=== PATIENT | female | born 1950 | race Hispanic/Latino ===

== ENCOUNTER 2019-02-22 17:29 | Inpatient (IN) | payer MEDICARE, OTHER ==
[2019-02-22] MEDS ORDERED: NARCAN 2 MG/2 ML ONE ×2 (17:37→18:26)
[2019-02-22] MEDS ORDERED: NACL 0.9% 1000 ML 1,000 ML IV ONE (18:28)
[2019-02-22] MEDS ORDERED: NARCAN 2 MG/2 ML IV ONE (18:30)
[2019-02-22 19:06] LABS: Basophils % (Auto) 0.2 % (0.0-1.8); Eosinophils % (Auto) 0.1 % (0.0-4.3); Hematocrit 35.7 % (30.3-42.9); Hemoglobin 11.7 gm/dl (10.1-14.3); Lymphocytes % (Auto) 6.8 % (13.4-35.0); Mean Corpuscular HGB Conc 33 % (30-34); Mean Corpuscular Volume 96 fl (79-97); Monocytes # (Auto) 0.8 K/mm3 (0.0-0.8); Monocytes % (Auto) 5.5 % (0.0-7.3); Platelet Count 303 K/mm3 (140-440); Red Blood Count 3.71 M/mm3 (3.65-5.03); Red Cell Distribution Width 17.5 % (13.2-15.2)
[2019-02-22 19:16] LABS: Alanine Aminotransferase 32 units/L (7-56); Albumin 3.2 g/dL (3.9-5); BUN/Creatinine Ratio 36; Blood Urea Nitrogen 18 mg/dL (7-17); Calcium 10.2 mg/dL (8.4-10.2); Hemolysis Index 30
--- NOTE | 2019-02-22 19:50 | Cat Scan Report ---
PROCEDURE: CT HEAD/BRAIN WO CON TECHNIQUE: Computerized tomography of the head was performed without contrast material. HISTORY: AMS COMPARISONS: None . FINDINGS: Skull and scalp: There is soft tissue scalp swelling over the left forehead extending to the left or bital region . Paranasal sinuses: Normal . Ventricles and subarachnoid spaces: Normal . Cerebrum: No evidence of hemorrhage, acute infarction or mass . Cerebellum and brainstem: No evidence of hemorrhage, acute infarction or mass . Vasculature: Normal . Other: None . ASPECTS: 10 IMPRESSION: No acute intracranial abnormality. Soft tissue scalp swelling of the left forehead and le ft orbital region This document is electronically signed by Emmanuelle Silver MD., February 22 2019 07:48:04 PM ET
--- NOTE | 2019-02-22 19:52 | XRay Report ---
PROCEDURE: XR CHEST 1V AP TECHNIQUE: Chest radiograph single view. HISTORY: ams COMPARISONS: None FINDINGS: There are bilateral areas of pulmonary consolidation most suggestive of pulmonary infiltrates. Probab le pneumonia. There is no evidence of pneumothorax and no definite evidence of pleural effusion. The cardiac silhouette is enlarged. There is evidence of a prosthetic cardiac valve and previous CABG procedure. There is a dual-lead AIC D. The thoracic aorta is unremarkable. The bony structures are osteopenic in appearance. Visualization of detail of the thoracic spine is li mited. IMPRESSION: 1. Bilateral pulmonary infiltrates. Probable pneumonia. 2. Enlarged cardiac silhouette with AICD, prosthetic cardiac valve and evidence of previous CABG proc edure. This document is electronically signed by Grace Gomez MD., February 22 2019 07:50:56 PM ET
[2019-02-22] MEDS ORDERED: LEVAQUIN 750MG/150ML 750 MG/150 ML BAG IV ONE (20:15)
--- NOTE | 2019-02-22 20:16 | Emergency Department Report ---
ED Altered Mental Status HPI - General Chief Complaint: Altered Mental Status Stated Complaint: AMS Time Seen by Provider: 02/22/19 18:05 Source: EMS Mode of arrival: Stretcher Limitations: Altered Mental Status - History of Present Illness Initial Comments: 68-year-old female presents to ED via EMS with altered mental status. Per EMS, patient's friend stopped by home to check on her, and found her on the floor. Patient is followed. EMS was called to help her up. Friends reported patient has had multiple falls recently. Patient was recently discharged from a rehabilitation facility approximately 3-4 weeks ago following a femur fracture. Those friends took the patient to see her primary care physician on yesterday, Dr. Golden, who recommended that the patient be referred to a assisted facility. Friends state patient has no appetite, does not eat very much. They also reported that this has been patient's baseline mental status over the last few weeks. EMS found a prescription for Percocet 10 mg. The prescription was written by her PCP and filled approximately 3 weeks ago for 240 tabs, EMS reports only approximately 30 remain. Instructions are for patient to take 2 pills four times a day for pain. Friends report yesterday, during PCP appointment, pt asked for additional pain medicine. Here in ED, pt will state her name, answers no other questions. Pt given narcan, no significant improvement in mental status MD Complaint: decreased responsiveness Consistency of Symptoms: constant - Related Data Home Medications Medication Instructions Recorded Confirmed Last Taken Unobtainable 02/22/19 02/22/19 Unknown Allergies Allergy/AdvReac Type Severity Reaction Status Date / Time atorvastatin [From Lipitor] Allergy Unknown Verified 02/22/19 18:11 metoclopramide [From Reglan] Allergy Unknown Verified 02/22/19 21:06 promethazine [From Phenergan] Allergy Unknown Verified 02/22/19 21:06 ED Review of Systems ROS: Stated complaint: AMS Other details as noted in HPI Comment: Unobtainable due to pts medical conditions ED Past Medical Hx - Past Medical History Previous Medical History?: Yes Hx Hypertension: Yes Additional medical history: A. FIB - Surgical History Past Surgical History?: Yes Hx Open Heart Surgery: Yes (CABG) Hx Internal Defibrillator: Yes - Social History Smoking Status: Unknown if ever smoked - Medications Home Medications: Home Medications Medication Instructions Recorded Confirmed Last Taken Type Unobtainable 02/22/19 02/22/19 Unknown History ED Physical Exam - General Limitations: Altered Mental Status General appearance: lethargic, cachectic - Head Head exam: Present: normocephalic, other (ecchymosis present to left forehead) - Eye Eye exam: Present: other (lid edema bilaterally) Pupils: Present: other (pinpoint pupils bilaterally) - ENT ENT exam: Present: mucous membranes dry - Neck Neck exam: Present: normal inspection - Respiratory Respiratory exam: Present: normal lung sounds bilaterally. Absent: respiratory distress - Cardiovascular Cardiovascular Exam: Present: regular rate, normal rhythm - GI/Abdominal GI/Abdominal exam: Present: soft. Absent: distended, tenderness - Extremities Exam Extremities exam: Present: other (bruise to bilateral shoulders) - Neurological Exam Neurological exam: Present: altered. Absent: oriented X3 (oriented x 1) - Skin Skin exam: Present: warm, dry ED Course Vital Signs 02/22/19 02/22/19 02/22/19 17:36 17:40 18:00 Temperature 98.3 F Pulse Rate 86 Respiratory 16 Rate Blood Pressure 121/67 Blood Pressure 112/73 [Right] O2 Sat by Pulse 94 100 91 Oximetry 02/22/19 02/22/19 02/22/19 18:10 18:30 19:00 Temperature Pulse Rate 95 H Respiratory 22 Rate Blood Pressure 132/67 130/65 Blood Pressure 130/65 [Right] O2 Sat by Pulse 96 86 92 Oximetry 02/22/19 02/22/19 02/22/19 19:10 19:56 20:10 Temperature Pulse Rate 99 H 90 Respiratory 20 22 Rate Blood Pressure 119/74 Blood Pressure 119/74 129/65 [Right] O2 Sat by Pulse 88 70 L 99 Oximetry 02/22/19 02/22/19 02/22/19 20:59 21:30 22:00 Temperature Pulse Rate 75 84 72 Respiratory 20 21 Rate Blood Pressure 114/62 112/64 Blood Pressure [Right] O2 Sat by Pulse 100 99 Oximetry 02/22/19 02/22/19 02/22/19 22:30 22:51 23:00 Temperature Pulse Rate 71 72 87 Respiratory 19 21 20 Rate Blood Pressure 103/61 94/53 97/63 Blood Pressure [Right] O2 Sat by Pulse 99 100 100 Oximetry 06/06/19 06/06/19 06/06/19 23:11 23:21 23:53 Temperature 97.8 F Pulse Rate 68 63 74 Respiratory 20 18 18 Rate Blood Pressure 97/63 91/53 95/57 Blood Pressure [Right] O2 Sat by Pulse 100 100 99 Oximetry - Lab Data Result diagrams: 02/22/19 18:46 02/22/19 18:46 Lab Results 02/22/19 02/22/19 02/22/19 Range/Units 17:44 18:46 18:46 WBC 14.5 H (4.5-11.0) K/mm3 RBC 3.71 (3.65-5.03) M/mm3 Hgb 11.7 (10.1-14.3) gm/dl Hct 35.7 (30.3-42.9) % MCV 96 (79-97) fl MCH 31 (28-32) pg MCHC 33 (30-34) % RDW 17.5 H (13.2-15.2) % Plt Count 303 (140-440) K/mm3 Lymph % (Auto) 6.8 L (13.4-35.0) % [place] % (Auto) 5.5 (0.0-7.3) % Eos % (Auto) 0.1 (0.0-4.3) % Baso % (Auto) 0.2 (0.0-1.8) % Lymph # 1.0 L (1.2-5.4) K/mm3 [place] # 0.8 (0.0-0.8) K/mm3 Eos # 0.0 (0.0-0.4) K/mm3 Baso # 0.0 (0.0-0.1) K/mm3 Seg Neutrophils % 87.4 H (40.0-70.0) % Seg Neutrophils # 12.7 H (1.8-7.7) K/mm3 POC ABG pH (7.35-7.45) POC ABG pCO2 (35-45) POC ABG HCO3 (22-26 mml/L) POC ABG Total CO2 (23-27mmol/L) POC ABG O2 Sat POC ABG Base Excess ((-2) - (+3)mmol/L) FiO2 % Sodium 140 (137-145) mmol/L Potassium 4.3 (3.6-5.0) mmol/L Chloride 98.3 (98-107) mmol/L Carbon Dioxide 32 H (22-30) mmol/L Anion Gap 14 mmol/L BUN 18 H (7-17) mg/dL Creatinine 0.5 L (0.7-1.2) mg/dL Estimated GFR > 60 ml/min BUN/Creatinine Ratio 36 % Glucose 103 H (65-100) mg/dL POC Glucose 109 H (70-105) Calcium 10.2 (8.4-10.2) mg/dL Total Bilirubin 0.70 (0.1-1.2) mg/dL AST 41 H (5-40) units/L ALT 32 (7-56) units/L Alkaline Phosphatase 161 H (35-129) units/L Total Protein 6.7 (6.3-8.2) g/dL Albumin 3.2 L (3.9-5) g/dL Albumin/Globulin Ratio 0.9 % Urine Color (Yellow) Urine Turbidity (Clear) Urine pH (5.0-7.0) Ur Specific G[place] (1.003-1.030) Urine Protein (Negative) mg/dL Urine Glucose (UA) (Negative) mg/dL Urine Ketones (Negative) mg/dL Urine Blood (Negative) Urine Nitrite (Negative) Urine Bilirubin (Negative) Urine Urobilinogen (<2.0) mg/dL Ur Leukocyte Esterase (Negative) Urine WBC (Auto) (0.0-6.0) /HPF Urine RBC (Auto) (0.0-6.0) /HPF U Epithel Cells (Auto) (0-13.0) /HPF Hyaline Casts /LPF Urine Mucus /HPF Urine Opiates Screen Urine Methadone Screen Ur Barbiturates Screen Ur Phencyclidine Scrn Ur Amphetamines Screen U Benzodiazepines Scrn Urine Cocaine Screen U Marijuana (THC) Screen Drugs of Abuse Note 02/22/19 02/22/19 02/22/19 Range/Units 19:05 20:30 20:30 WBC (4.5-11.0) K/mm3 RBC (3.65-5.03) M/mm3 Hgb (10.1-14.3) gm/dl Hct (30.3-42.9) % MCV (79-97) fl MCH (28-32) pg MCHC (30-34) % RDW (13.2-15.2) % Plt Count (140-440) K/mm3 Lymph % (Auto) (13.4-35.0) % [place] % (Auto) (0.0-7.3) % Eos % (Auto) (0.0-4.3) % Baso % (Auto) (0.0-1.8) % Lymph # (1.2-5.4) K/mm3 [place] # (0.0-0.8) K/mm3 Eos # (0.0-0.4) K/mm3 Baso # (0.0-0.1) K/mm3 Seg Neutrophils % (40.0-70.0) % Seg Neutrophils # (1.8-7.7) K/mm3 POC ABG pH 7.490 H (7.35-7.45) POC ABG pCO2 43.4 (35-45) POC ABG HCO3 33.1 (22-26 mml/L) POC ABG Total CO2 34 (23-27mmol/L) POC ABG O2 Sat 86 POC ABG Base Excess 10 ((-2) - (+3)mmol/L) FiO2 21 % Sodium (137-145) mmol/L Potassium (3.6-5.0) mmol/L Chloride (98-107) mmol/L Carbon Dioxide (22-30) mmol/L Anion Gap mmol/L BUN (7-17) mg/dL Creatinine (0.7-1.2) mg/dL Estimated GFR ml/min BUN/Creatinine Ratio % Glucose (65-100) mg/dL POC Glucose (70-105) Calcium (8.4-10.2) mg/dL Total Bilirubin (0.1-1.2) mg/dL AST (5-40) units/L ALT (7-56) units/L Alkaline Phosphatase (35-129) units/L Total Protein (6.3-8.2) g/dL Albumin (3.9-5) g/dL Albumin/Globulin Ratio % Urine Color Yellow (Yellow) Urine Turbidity Clear (Clear) Urine pH 5.0 (5.0-7.0) Ur Specific G[place] 1.024 (1.003-1.030) Urine Protein <15 mg/dl (Negative) mg/dL Urine Glucose (UA) Neg (Negative) mg/dL Urine Ketones Neg (Negative) mg/dL Urine Blood Neg (Negative) Urine Nitrite Neg (Negative) Urine Bilirubin Neg (Negative) Urine Urobilinogen 2.0 (<2.0) mg/dL Ur Leukocyte Esterase Neg (Negative) Urine WBC (Auto) 3.0 (0.0-6.0) /HPF Urine RBC (Auto) 2.0 (0.0-6.0) /HPF U Epithel Cells (Auto) 1.0 (0-13.0) /HPF Hyaline Casts 3 /LPF Urine Mucus 1+ /HPF Urine Opiates Screen Presumptive negative Urine Methadone Screen Presumptive negative Ur Barbiturates Screen Presumptive negative Ur Phencyclidine Scrn Presumptive negative Ur Amphetamines Screen Presumptive negative U Benzodiazepines Scrn Presumptive negative Urine Cocaine Screen Presumptive negative U Marijuana (THC) Screen Presumptive negative Drugs of Abuse Note Disclamer - Radiology Data Radiology results: report reviewed, image reviewed - Medical Decision Making 68 yo F w/ failure to thrive, opoid dependence, and pneumonia. Pt is altered and minimally responsive, however, friends state that this has been pt's baseline for several weeks now. Reports she has had multiple falls also. CT Head negative. O2 sats 91% RA at one point. Pt given narcan x 3 doses, however, no significant change in mental status. CXR shows pneumonia. According to friends, pt visited PCP yesterday and had plans for pt to enter assisted b/c she has not been eating and is unable to care for herself. Pt will be admitted by hospitalist, Dr Barcenas, for further management. - Differential Diagnosis accidental overdose, intracranial injury, dehydration Critical Care Time: Yes Critical care time in (mins) excluding proc time.: 35 Critical care attestation.: If time is entered above; I have spent that time in minutes in the direct care of this critically ill patient, excluding procedure time. Critical Care Time: 35 minutes ED Disposition Clinical Impression: Failure to thrive, Pneumonia, Altered mental status, Narcotic dependence, Hypoxia Disposition: [id number] OP ADMIT IP TO THIS HOSP Is pt being admited?: Yes Condition: Stable Time of Disposition: 20:16
[2019-02-22 21:08] LABS: Bilirubin,Urine NEG (Negative); Blood,Urine NEG (Negative); Color,Urine Yellow (Yellow); Hyaline Casts,Urine 3 /LPF; Mucus,Urine 1+ /HPF; Protein,Urine <15 mg/dL mg/dL (Negative)
[2019-02-22 21:15] LABS: Amphetamine Screen,Urine PRESUMPTIVE NEGATIVE; Benzodiazepines Screen,Urine PRESUMPTIVE NEGATIVE; Cannabinoid Screen,Urine PRESUMPTIVE NEGATIVE; Cocaine Screen,Urine PRESUMPTIVE NEGATIVE; Methadone Screen,Urine PRESUMPTIVE NEGATIVE; Opiate Screen,Urine PRESUMPTIVE NEGATIVE
--- NOTE | 2019-02-22 22:30 | History and Physical Report ---
History of Present Illness Date of examination: 02/22/19 History of present illness: 68 -year-old woman with a history of hypertension, coronary artery disease, A. fib was brought to the emergency room by friends for senior living placement as recommended by her primary care physician. The patient is unable to give a hi story. Per the emergency room physician, she is been having multiple falls, recent hip surgery and was discharged to rehabilitation and subsequently discharged to home. She had a prescription for Percocet filled on February 01 with 240 Percocet, instructed to take 8 tablets maximum per day. The patient only had about 30 something pills left in the bottle, Narcan was given in the field, she was sedated, no improvement in mental status. Her review of system is unobtainable PAST MEDICAL HISTORY:hypertension, coronary artery disease, A. fib PAST SURGICAL HISTORY: CABG SOCIAL HISTORY: Unknown alcohol, drugs, tobacco FAMILY HISTORY: Unknown Medications and Allergies Allergies Allergy/AdvReac Type Severity Reaction Status Date / Time atorvastatin [From Lipitor] Allergy Unknown Verified 02/22/19 18:11 metoclopramide [From Reglan] Allergy Unknown Verified 02/22/19 21:06 promethazine [From Phenergan] Allergy Unknown Verified 02/22/19 21:06 Home Medications Medication Instructions Recorded Confirmed Last Taken Type Duloxetine HCl 60 mg PO DAILY 02/23/19 02/23/19 Unknown History Furosemide [Lasix TAB] 40 mg PO DAILY 02/23/19 02/23/19 Unknown History Metoprolol 25 mg PO QHS 02/23/19 02/23/19 Unknown History Metoprolol 50 mg PO DAILY 02/23/19 02/23/19 Unknown History Percocet 10/325 mg 2 mg PO QID 02/23/19 02/23/19 Unknown History Warfarin 1 mg PO DAILY 02/23/19 02/23/19 Unknown History Exam - Physical Exam Narrative exam: General Apperance: The patient lying in bed, breathing comfortable HEENT: Normocephalic, atraumatic. Pupils equally round and reactive to light, EOMI, no sclericterus or JVD or thyromegaly or nodule. , no carotid bruit, mucous membranes moist, no exudate or erythema Heart: S1-S2, regular is rhythm Lungs: Clear to auscultation anteriorly bilaterally, breathing comfortable Abdomen: Positive bowel sounds, soft, nontender, nondistended, no organomegaly Extremities: No edema cyanosis clubbing Skin: no rash, nodule, warm and dry Neuro: difficult to assess - Constitutional Vitals: Temp Pulse Resp BP Pulse Ox 98.3 F 75 22 129/65 99 02/22/19 17:40 02/22/19 20:59 02/22/19 20:10 02/22/19 20:10 02/22/19 20:10 Results - Labs CBC & Chem 7: 02/25/19 04:54 02/25/19 04:54 Labs: Abnormal lab results 02/22/19 02/22/19 02/22/19 Range/Units 17:44 18:46 18:46 WBC 14.5 H (4.5-11.0) K/mm3 RDW 17.5 H (13.2-15.2) % Lymph % (Auto) 6.8 L (13.4-35.0) % Lymph # 1.0 L (1.2-5.4) K/mm3 Seg Neutrophils % 87.4 H (40.0-70.0) % Seg Neutrophils # 12.7 H (1.8-7.7) K/mm3 POC ABG pH (7.35-7.45) Carbon Dioxide 32 H (22-30) mmol/L BUN 18 H (7-17) mg/dL Creatinine 0.5 L (0.7-1.2) mg/dL Glucose 103 H (65-100) mg/dL POC Glucose 109 H (70-105) AST 41 H (5-40) units/L Alkaline Phosphatase 161 H (35-129) units/L Albumin 3.2 L (3.9-5) g/dL 02/22/19 Range/Units 19:05 WBC (4.5-11.0) K/mm3 RDW (13.2-15.2) % Lymph % (Auto) (13.4-35.0) % Lymph # (1.2-5.4) K/mm3 Seg Neutrophils % (40.0-70.0) % Seg Neutrophils # (1.8-7.7) K/mm3 POC ABG pH 7.490 H (7.35-7.45) Carbon Dioxide (22-30) mmol/L BUN (7-17) mg/dL Creatinine (0.7-1.2) mg/dL Glucose (65-100) mg/dL POC Glucose (70-105) AST (5-40) units/L Alkaline Phosphatase (35-129) units/L Albumin (3.9-5) g/dL - Imaging and Cardiology Chest x-ray: report reviewed CT Scan - head: report reviewed Assessment and Plan Assessment Pneumonia, possible aspiration versus HCAP ? Altered Mental status Failure to thrive Hypertension Coronary artery disease A. fib Plan Admit to medicine Start IV Zosyn, IV fluid follow cultures Consult case management, check cardiac enzymes DVT prophylaxis
[2019-02-23] MEDS ORDERED: SODIUM CHLORIDE FLUSH SYRINGE 10 ML IV PRN (02:02)
[2019-02-23] MEDS ORDERED: ZOFRAN IV PRN (02:02)
[2019-02-23] MEDS: ZOSYN/NS 3.375GM/50ML 3.375 GM/50 ML BAG IV SCH ×4 (02:54→18:20)
[2019-02-23] MEDS: NACL 0.9% 1000 ML 1,000 ML IV SCH ×2 (02:56→16:17)
[2019-02-23 05:50] LABS: Hematocrit 30.5 % (30.3-42.9); Hemoglobin 9.7 gm/dl (10.1-14.3); Mean Corpuscular HGB Conc 32 % (30-34); Mean Corpuscular Volume 97 fl (79-97); Platelet Count 222 K/mm3 (140-440); Red Blood Count 3.13 M/mm3 (3.65-5.03); Red Cell Distribution Width 17.4 % (13.2-15.2)
[2019-02-23 06:08] LABS: Creatine Kinase MB 4.6 ng/mL (0.0-4.0)
[2019-02-23 06:09] LABS: BUN/Creatinine Ratio 33; Blood Urea Nitrogen 13 mg/dL (7-17); Calcium 8.5 mg/dL (8.4-10.2); Hemolysis Index 2
[2019-02-23 06:20] LABS: Chol/HDL Ratio 1.87 %
[2019-02-23 06:40] LABS: Anisocytosis 1+; Band Neutrophils # (Manual) 0.1 K/mm3; Basophils % (Manual) 0 % (0.0-1.8); Eosinophils % (Manual) 0 % (0.0-4.3); Platelet Estimate Consistent w Auto; Total Cells Counted 100
--- NOTE | 2019-02-23 08:48 | Progress Note ---
Assessment and Plan Assessment and plan: --Possible Pneumonia, possible aspiration versus HCAP Continue empiric antibiotics, follow cultures, supportive care Aspiration precautions --Metabolic encephalopathy /Altered Mental status; present on admission Multifactorial, supportive care, patient is more alert and awake responding appropriately to be --History of narcotic abuse; counseling advice to quit Patient advised detox program, psych consult if needed --Failure to thrive in an adult; nutrition supplements, nutrition consult Supportive care --Severe malnutrition; nutrition consult --Hypertension; moderate control, continue current antihypertensives and when necessary medications --History of Coronary artery disease;s/p CABG Continue current cardiac medications --Positive troponins/non-ST elevation OK Consults cardiology --History of heart valve replacement; supportive care --History of paroxysmal A. fib; patient is now in sinus rhythm Continue beta blockers, chronic anticoagulation with Coumadin --History of ICD; interrogation if needed --DVT prophylaxis; Lovenox --Discharge planning; possible rehabilitation versus SNF placement When medically stable Plan of care is reviewed with the patient and her nurse Follow cardiology evaluation and recommendations tomorrow History Interval history: Seen and examined medical records reviewed Admitted with altered level of consciousness And possible narcotic dependence Patient is chronically ill-looking, cachectic, emaciated Vital signs noted In mild distress Patient complains of generalized weakness and vague chest pain Asking for pain medications Hospitalist Physical - Constitutional Vitals: Temp Pulse Resp BP Pulse Ox 97.9 F 65 20 100/47 97 02/23/19 07:17 02/23/19 07:17 02/23/19 07:17 02/23/19 07:17 02/23/19 07:17 General appearance: Present: mild distress, cachectic, disheveled, other ( emaciated) - EENT Eyes: Present: PERRL, EOM intact - Neck Neck: Present: supple, normal ROM - Respiratory Respiratory effort: normal Respiratory: bilateral: diminished, rales, negative: rhonchi, wheezing - Cardiovascular Rhythm: regular Heart Sounds: Present: S1 & S2 - Extremities Extremities: no ischemia, No edema - Abdominal General gastrointestinal: soft, non-tender, non-distended, normal bowel sounds - Integumentary Integumentary: Present: clear, warm - Psychiatric Psychiatric: appropriate mood/affect, cooperative - Neurologic Neurologic: moves all extremities Results - Labs CBC & Chem 7: 02/23/19 05:18 02/23/19 05:18 Labs: Laboratory Last Values WBC 13.8 K/mm3 (4.5-11.0) H 02/23/19 05:18 RBC 3.13 M/mm3 (3.65-5.03) L 02/23/19 05:18 Hgb 9.7 gm/dl (10.1-14.3) L 02/23/19 05:18 Hct 30.5 % (30.3-42.9) 02/23/19 05:18 MCV 97 fl (79-97) 02/23/19 05:18 MCH 31 pg (28-32) 02/23/19 05:18 MCHC 32 % (30-34) 02/23/19 05:18 RDW 17.4 % (13.2-15.2) H 02/23/19 05:18 Plt Count 222 K/mm3 (140-440) 02/23/19 05:18 Lymph % (Auto) 6.8 % (13.4-35.0) L 02/22/19 18:46 [place] % (Auto) 5.5 % (0.0-7.3) 02/22/19 18:46 Eos % (Auto) 0.1 % (0.0-4.3) 02/22/19 18:46 Baso % (Auto) 0.2 % (0.0-1.8) 02/22/19 18:46 Lymph # 1.0 K/mm3 (1.2-5.4) L 02/22/19 18:46 [place] # 0.8 K/mm3 (0.0-0.8) 02/22/19 18:46 Eos # 0.0 K/mm3 (0.0-0.4) 02/22/19 18:46 Baso # 0.0 K/mm3 (0.0-0.1) 02/22/19 18:46 Add Manual Diff Complete 02/23/19 05:18 Total Counted 100 02/23/19 05:18 Seg Neutrophils % 87.4 % (40.0-70.0) H 02/22/19 18:46 Seg Neuts % (Manual) 90.0 % (40.0-70.0) H 02/23/19 05:18 1.0 % 02/23/19 05:18 2.0 % (13.4-35.0) L 02/23/19 05:18 Reactive Lymphs % (Man) 0 % 02/23/19 05:18 7.0 % (0.0-7.3) 02/23/19 05:18 0 % (0.0-4.3) 02/23/19 05:18 0 % (0.0-1.8) 02/23/19 05:18 0 % 02/23/19 05:18 0 % 02/23/19 05:18 0 % 02/23/19 05:18 0 % 02/23/19 05:18 Nucleated RBC % Not Reportable 02/23/19 05:18 Seg Neutrophils # 12.7 K/mm3 (1.8-7.7) H 02/22/19 18:46 Seg Neutrophils # Man 12.4 K/mm3 (1.8-7.7) H 02/23/19 05:18 Band Neutrophils # 0.1 K/mm3 02/23/19 05:18 0.3 K/mm3 (1.2-5.4) L 02/23/19 05:18 Abs React Lymphs (Man) 0.0 K/mm3 02/23/19 05:18 1.0 K/mm3 (0.0-0.8) H 02/23/19 05:18 0.0 K/mm3 (0.0-0.4) 02/23/19 05:18 0.0 K/mm3 (0.0-0.1) 02/23/19 05:18 0.0 K/mm3 02/23/19 05:18 0.0 K/mm3 02/23/19 05:18 0.0 K/mm3 02/23/19 05:18 Blast Cells # 0.0 K/mm3 02/23/19 05:18 WBC Morphology Not Reportable 02/23/19 05:18 Hypersegmented Neuts Not Reportable 02/23/19 05:18 Hyposegmented Neuts Not Reportable 02/23/19 05:18 Hypogranular Neuts Not Reportable 02/23/19 05:18 Not Reportable 02/23/19 05:18 Not Reportable 02/23/19 05:18 Not Reportable 02/23/19 05:18 Not Reportable 02/23/19 05:18 Not Reportable 02/23/19 05:18 Not Reportable 02/23/19 05:18 Consistent w auto 02/23/19 05:18 Not Reportable 02/23/19 05:18 Plt Clumps, EDTA Not Reportable 02/23/19 05:18 Not Reportable 02/23/19 05:18 Not Reportable 02/23/19 05:18 Not Reportable 02/23/19 05:18 Plt Morphology Comment Not Reportable 02/23/19 05:18 RBC Morphology Not Reportable 02/23/19 05:18 Dimorphic RBCs Not Reportable 02/23/19 05:18 Not Reportable 02/23/19 05:18 Not Reportable 02/23/19 05:18 Not Reportable 02/23/19 05:18 1+ 02/23/19 05:18 Not Reportable 02/23/19 05:18 Not Reportable 02/23/19 05:18 Not Reportable 02/23/19 05:18 Not Reportable 02/23/19 05:18 Not Reportable 02/23/19 05:18 Not Reportable 02/23/19 05:18 Not Reportable 02/23/19 05:18 Not Reportable 02/23/19 05:18 Not Reportable 02/23/19 05:18 Not Reportable 02/23/19 05:18 Not Reportable 02/23/19 05:18 Not Reportable 02/23/19 05:18 Not Reportable 02/23/19 05:18 Not Reportable 02/23/19 05:18 Not Reportable 02/23/19 05:18 Acanthocytes (Spur) Not Reportable 02/23/19 05:18 Rouleaux Not Reportable 02/23/19 05:18 Not Reportable 02/23/19 05:18 Not Reportable 02/23/19 05:18 Not Reportable 02/23/19 05:18 Not Reportable 02/23/19 05:18 Hem Pathologist Commnt No 02/23/19 05:18 POC ABG pH 7.490 (7.35-7.45) H 02/22/19 19:05 POC ABG pCO2 43.4 (35-45) 02/22/19 19:05 POC ABG HCO3 33.1 (22-26 mml/L) 02/22/19 19:05 POC ABG Total CO2 34 (23-27mmol/L) 02/22/19 19:05 POC ABG O2 Sat 86 02/22/19 19:05 POC ABG Base Excess 10 ((-2) - (+3)mmol/L) 02/22/19 19:05 21 % 02/22/19 19:05 Sodium 143 mmol/L (137-145) 02/23/19 05:18 Potassium 4.1 mmol/L (3.6-5.0) 02/23/19 05:18 Chloride 102.0 mmol/L (98-107) 02/23/19 05:18 Carbon Dioxide 33 mmol/L (22-30) H 02/23/19 05:18 12 mmol/L 02/23/19 05:18 BUN 13 mg/dL (7-17) 02/23/19 05:18 0.4 mg/dL (0.7-1.2) L 02/23/19 05:18 Estimated GFR > 60 ml/min 02/23/19 05:18 33 % 02/23/19 05:18 Glucose 85 mg/dL (65-100) 02/23/19 05:18 POC Glucose 109 (70-105) H 02/22/19 17:44 Calcium 8.5 mg/dL (8.4-10.2) D 02/23/19 05:18 0.70 mg/dL (0.1-1.2) 02/22/19 18:46 AST 41 units/L (5-40) H 02/22/19 18:46 ALT 32 units/L (7-56) 02/22/19 18:46 161 units/L (35-129) H 02/22/19 18:46 53 units/L (30-135) 02/23/19 05:18 CK-MB (CK-2) 4.6 ng/mL (0.0-4.0) H 02/23/19 05:18 CK-MB (CK-2) Rel Index 8.6 (0-4) H 02/23/19 05:18 0.036 ng/mL (0.00-0.029) H 02/23/19 05:18 6.7 g/dL (6.3-8.2) 02/22/19 18:46 3.2 g/dL (3.9-5) L 02/22/19 18:46 0.9 % 02/22/19 18:46 Triglycerides 77 mg/dL (2-149) 02/23/19 05:18 Cholesterol 101 mg/dL (50-199) 02/23/19 05:18 31 mg/dL (50-130) L 02/23/19 05:18 54 mg/dL (40-59) 02/23/19 05:18 1.87 % 02/23/19 05:18 Yellow (Yellow) 02/22/19 20:30 Clear (Clear) 02/22/19 20:30 5.0 (5.0-7.0) 02/22/19 20:30 Ur Specific [place] 1.024 (1.003-1.030) 02/22/19 20:30 <15 mg/dl mg/dL (Negative) 02/22/19 20:30 Neg mg/dL (Negative) 02/22/19 20:30 Neg mg/dL (Negative) 02/22/19 20:30 Neg (Negative) 02/22/19 20:30 Neg (Negative) 02/22/19 20:30 Neg (Negative) 02/22/19 20:30 2.0 mg/dL (<2.0) 02/22/19 20:30 Ur Leukocyte Esterase Neg (Negative) 02/22/19 20:30 3.0 /HPF (0.0-6.0) 02/22/19 20:30 2.0 /HPF (0.0-6.0) 02/22/19 20:30 U Epithel Cells (Auto) 1.0 /HPF (0-13.0) 02/22/19 20:30 Hyaline Casts 3 /LPF 02/22/19 20:30 1+ /HPF 02/22/19 20:30 Presumptive negative 02/22/19 20:30 Presumptive negative 02/22/19 20:30 Ur Barbiturates Screen Presumptive negative 02/22/19 20:30 Ur Phencyclidine Scrn Presumptive negative 02/22/19 20:30 Ur Amphetamines Screen Presumptive negative 02/22/19 20:30 U Benzodiazepines Scrn Presumptive negative 02/22/19 20:30 Presumptive negative 02/22/19 20:30 U Marijuana (THC) Screen Presumptive negative 02/22/19 20:30 Disclamer 02/22/19 20:30 Active Medications - Current Medications Current Medications: Generic Name Dose Route Start Last Admin Trade Name Freq PRN Reason Stop Dose Admin Acetaminophen 650 mg 02/23/19 02:02 Tylenol PO Q4H PRN Pain MILD(1-3)/Fever >100.5/DUPREE Enoxaparin Sodium 40 mg 02/23/19 10:00 Lovenox SUB-Q QDAY@1000 JESSICA Sodium Chloride 1,000 mls @ 75 mls/hr 02/23/19 02:00 02/23/19 02:56 Nacl 0.9% 1000 Ml IV 75 mls/hr DIRECT JESSICA Administration Piperacillin Sod/Tazobactam Sod 3.375 gm in 50 mls @ 100 mls/hr 02/23/19 03:00 02/23/19 06:20 Zosyn/Ns 3.375gm/50ml IV 100 mls/hr Q8H JESSICA Administration Protocol Ondansetron HCl 4 mg 02/23/19 02:02 Zofran IV Q8H PRN Nausea And Vomiting Sodium Chloride 10 ml 02/23/19 10:00 Sodium Chloride Flush Syringe 10 Ml IV BID JESSICA Sodium Chloride 10 ml 02/23/19 02:02 Sodium Chloride Flush Syringe 10 Ml IV PRN PRN LINE FLUSH
[2019-02-23] MEDS: SODIUM CHLORIDE FLUSH SYRINGE 10 ML IV SCH ×2 (09:05→22:56)
[2019-02-23] MEDS: LOVENOX SUB-Q SCH (09:05)
[2019-02-23] MEDS ORDERED: LOVENOX SUB-Q SCH (10:00)
[2019-02-23 11:21] LABS: Creatine Kinase MB 4.4 ng/mL (0.0-4.0)
[2019-02-23] MEDS: TYLENOL PO PRN ×2 (16:18→20:06)
[2019-02-23 20:48] LABS: INR 1.41 (0.87-1.13)
[2019-02-23] MEDS ORDERED: COUMADIN PO ONE (21:15)
[2019-02-24] MEDS: ZOSYN/NS 3.375GM/50ML 3.375 GM/50 ML BAG IV SCH ×3 (02:30→18:34)
[2019-02-24 05:55] LABS: INR 1.36 (0.87-1.13)
[2019-02-24] MEDS: NACL 0.9% 1000 ML 1,000 ML IV SCH ×2 (06:46→21:07)
--- NOTE | 2019-02-24 08:51 | Progress Note ---
Assessment and Plan Assessment and plan: --Metabolic encephalopathy /Altered Mental status; present on admission Multifactorial, supportive care, patient is more alert and awake responding appropriately to be --History of narcotic abuse; counseling advice to quit Patient advised detox program, psych consult if needed --Failure to thrive in an adult; nutrition supplements, nutrition consult Supportive care --Severe malnutrition; nutrition consult --Possible Pneumonia, possible aspiration versus HCAP Continue empiric antibiotics, follow cultures, supportive care Aspiration precautions --Hypertension; moderate control, continue current antihypertensives and when necessary medications --History of Coronary artery disease;s/p CABG Continue current cardiac medications --Positive troponins/non-ST elevation PR Consults cardiology --History of heart valve replacement; supportive care --History of paroxysmal A. fib; patient is now in sinus rhythm Continue beta blockers, chronic anticoagulation with Coumadin --History of ICD; interrogation if needed --DVT prophylaxis; Lovenox --Discharge planning; possible rehabilitation versus SNF placement When medically stable Plan of care is reviewed with the patient and her nurse Follow cardiology evaluation and recommendations tomorrow History Interval history: Patient Seen and examined medical records reviewed No new events reported by the nursing staff Patient is lethargic easily awakens Vital signs noted Hospitalist Physical - Constitutional Vitals: Temp Pulse Resp BP Pulse Ox 99.1 F 80 20 129/73 97 02/24/19 07:33 02/24/19 07:33 02/24/19 07:33 02/24/19 07:33 02/24/19 08:37 General appearance: Present: mild distress, cachectic, disheveled, other ( emaciated) - EENT Eyes: Present: PERRL, EOM intact - Neck Neck: Present: supple, normal ROM - Respiratory Respiratory effort: normal Respiratory: bilateral: diminished, rales, negative: rhonchi, wheezing - Cardiovascular Rhythm: regular Heart Sounds: Present: S1 & S2 - Extremities Extremities: no ischemia, No edema - Abdominal General gastrointestinal: soft, non-tender, non-distended, normal bowel sounds - Integumentary Integumentary: Present: clear, warm - Psychiatric Psychiatric: depressed (no suicidal ideation or thoughts), other (minimally communicative) - Neurologic Neurologic: moves all extremities Results - Labs CBC & Chem 7: 02/23/19 05:18 02/23/19 05:18 Labs: Laboratory Last Values WBC 13.8 K/mm3 (4.5-11.0) H 02/23/19 05:18 RBC 3.13 M/mm3 (3.65-5.03) L 02/23/19 05:18 Hgb 9.7 gm/dl (10.1-14.3) L 02/23/19 05:18 Hct 30.5 % (30.3-42.9) 02/23/19 05:18 MCV 97 fl (79-97) 02/23/19 05:18 MCH 31 pg (28-32) 02/23/19 05:18 MCHC 32 % (30-34) 02/23/19 05:18 RDW 17.4 % (13.2-15.2) H 02/23/19 05:18 Plt Count 222 K/mm3 (140-440) 02/23/19 05:18 Lymph % (Auto) 6.8 % (13.4-35.0) L 02/22/19 18:46 [place] % (Auto) 5.5 % (0.0-7.3) 02/22/19 18:46 Eos % (Auto) 0.1 % (0.0-4.3) 02/22/19 18:46 Baso % (Auto) 0.2 % (0.0-1.8) 02/22/19 18:46 Lymph # 1.0 K/mm3 (1.2-5.4) L 02/22/19 18:46 [place] # 0.8 K/mm3 (0.0-0.8) 02/22/19 18:46 Eos # 0.0 K/mm3 (0.0-0.4) 02/22/19 18:46 Baso # 0.0 K/mm3 (0.0-0.1) 02/22/19 18:46 Add Manual Diff Complete 02/23/19 05:18 Total Counted 100 02/23/19 05:18 Seg Neutrophils % 87.4 % (40.0-70.0) H 02/22/19 18:46 Seg Neuts % (Manual) 90.0 % (40.0-70.0) H 02/23/19 05:18 1.0 % 02/23/19 05:18 2.0 % (13.4-35.0) L 02/23/19 05:18 Reactive Lymphs % (Man) 0 % 02/23/19 05:18 7.0 % (0.0-7.3) 02/23/19 05:18 0 % (0.0-4.3) 02/23/19 05:18 0 % (0.0-1.8) 02/23/19 05:18 0 % 02/23/19 05:18 0 % 02/23/19 05:18 0 % 02/23/19 05:18 0 % 02/23/19 05:18 Nucleated RBC % Not Reportable 02/23/19 05:18 Seg Neutrophils # 12.7 K/mm3 (1.8-7.7) H 02/22/19 18:46 Seg Neutrophils # Man 12.4 K/mm3 (1.8-7.7) H 02/23/19 05:18 Band Neutrophils # 0.1 K/mm3 02/23/19 05:18 0.3 K/mm3 (1.2-5.4) L 02/23/19 05:18 Abs React Lymphs (Man) 0.0 K/mm3 02/23/19 05:18 1.0 K/mm3 (0.0-0.8) H 02/23/19 05:18 0.0 K/mm3 (0.0-0.4) 02/23/19 05:18 0.0 K/mm3 (0.0-0.1) 02/23/19 05:18 0.0 K/mm3 02/23/19 05:18 0.0 K/mm3 02/23/19 05:18 0.0 K/mm3 02/23/19 05:18 Blast Cells # 0.0 K/mm3 02/23/19 05:18 WBC Morphology Not Reportable 02/23/19 05:18 Hypersegmented Neuts Not Reportable 02/23/19 05:18 Hyposegmented Neuts Not Reportable 02/23/19 05:18 Hypogranular Neuts Not Reportable 02/23/19 05:18 Not Reportable 02/23/19 05:18 Not Reportable 02/23/19 05:18 Not Reportable 02/23/19 05:18 Not Reportable 02/23/19 05:18 Not Reportable 02/23/19 05:18 Not Reportable 02/23/19 05:18 Consistent w auto 02/23/19 05:18 Not Reportable 02/23/19 05:18 Plt Clumps, EDTA Not Reportable 02/23/19 05:18 Not Reportable 02/23/19 05:18 Not Reportable 02/23/19 05:18 Not Reportable 02/23/19 05:18 Plt Morphology Comment Not Reportable 02/23/19 05:18 RBC Morphology Not Reportable 02/23/19 05:18 Dimorphic RBCs Not Reportable 02/23/19 05:18 Not Reportable 02/23/19 05:18 Not Reportable 02/23/19 05:18 Not Reportable 02/23/19 05:18 1+ 02/23/19 05:18 Not Reportable 02/23/19 05:18 Not Reportable 02/23/19 05:18 Not Reportable 02/23/19 05:18 Not Reportable 02/23/19 05:18 Not Reportable 02/23/19 05:18 Not Reportable 02/23/19 05:18 Not Reportable 02/23/19 05:18 Not Reportable 02/23/19 05:18 Not Reportable 02/23/19 05:18 Not Reportable 02/23/19 05:18 Not Reportable 02/23/19 05:18 Not Reportable 02/23/19 05:18 Not Reportable 02/23/19 05:18 Not Reportable 02/23/19 05:18 Not Reportable 02/23/19 05:18 Acanthocytes (Spur) Not Reportable 02/23/19 05:18 Rouleaux Not Reportable 02/23/19 05:18 Not Reportable 02/23/19 05:18 Not Reportable 02/23/19 05:18 Not Reportable 02/23/19 05:18 Not Reportable 02/23/19 05:18 Hem Pathologist Commnt No 02/23/19 05:18 PT 17.7 Sec. (12.2-14.9) H 02/24/19 05:01 INR 1.36 (0.87-1.13) H 02/24/19 05:01 POC ABG pH 7.490 (7.35-7.45) H 02/22/19 19:05 POC ABG pCO2 43.4 (35-45) 02/22/19 19:05 POC ABG HCO3 33.1 (22-26 mml/L) 02/22/19 19:05 POC ABG Total CO2 34 (23-27mmol/L) 02/22/19 19:05 POC ABG O2 Sat 86 02/22/19 19:05 POC ABG Base Excess 10 ((-2) - (+3)mmol/L) 02/22/19 19:05 21 % 02/22/19 19:05 Sodium 143 mmol/L (137-145) 02/23/19 05:18 Potassium 4.1 mmol/L (3.6-5.0) 02/23/19 05:18 Chloride 102.0 mmol/L (98-107) 02/23/19 05:18 Carbon Dioxide 33 mmol/L (22-30) H 02/23/19 05:18 12 mmol/L 02/23/19 05:18 BUN 13 mg/dL (7-17) 02/23/19 05:18 0.4 mg/dL (0.7-1.2) L 02/23/19 05:18 Estimated GFR > 60 ml/min 02/23/19 05:18 33 % 02/23/19 05:18 Glucose 85 mg/dL (65-100) 02/23/19 05:18 POC Glucose 109 (70-105) H 02/22/19 17:44 Calcium 8.5 mg/dL (8.4-10.2) D 02/23/19 05:18 0.70 mg/dL (0.1-1.2) 02/22/19 18:46 AST 41 units/L (5-40) H 02/22/19 18:46 ALT 32 units/L (7-56) 02/22/19 18:46 161 units/L (35-129) H 02/22/19 18:46 49 units/L (30-135) 02/23/19 09:47 CK-MB (CK-2) 4.4 ng/mL (0.0-4.0) H 02/23/19 09:47 CK-MB (CK-2) Rel Index 8.9 (0-4) H 02/23/19 09:47 0.042 ng/mL (0.00-0.029) H 02/23/19 09:47 6.7 g/dL (6.3-8.2) 02/22/19 18:46 3.2 g/dL (3.9-5) L 02/22/19 18:46 0.9 % 02/22/19 18:46 Triglycerides 77 mg/dL (2-149) 02/23/19 05:18 Cholesterol 101 mg/dL (50-199) 02/23/19 05:18 31 mg/dL (50-130) L 02/23/19 05:18 54 mg/dL (40-59) 02/23/19 05:18 1.87 % 02/23/19 05:18 Yellow (Yellow) 02/22/19 20:30 Clear (Clear) 02/22/19 20:30 5.0 (5.0-7.0) 02/22/19 20:30 Ur Specific [place] 1.024 (1.003-1.030) 02/22/19 20:30 <15 mg/dl mg/dL (Negative) 02/22/19 20:30 Neg mg/dL (Negative) 02/22/19 20:30 Neg mg/dL (Negative) 02/22/19 20:30 Neg (Negative) 02/22/19 20:30 Neg (Negative) 02/22/19 20:30 Neg (Negative) 02/22/19 20:30 2.0 mg/dL (<2.0) 02/22/19 20:30 Ur Leukocyte Esterase Neg (Negative) 02/22/19 20:30 3.0 /HPF (0.0-6.0) 02/22/19 20:30 2.0 /HPF (0.0-6.0) 02/22/19 20:30 U Epithel Cells (Auto) 1.0 /HPF (0-13.0) 02/22/19 20:30 Hyaline Casts 3 /LPF 02/22/19 20:30 1+ /HPF 02/22/19 20:30 Presumptive negative 02/22/19 20:30 Presumptive negative 02/22/19 20:30 Ur Barbiturates Screen Presumptive negative 02/22/19 20:30 Ur Phencyclidine Scrn Presumptive negative 02/22/19 20:30 Ur Amphetamines Screen Presumptive negative 02/22/19 20:30 U Benzodiazepines Scrn Presumptive negative 02/22/19 20:30 Presumptive negative 02/22/19 20:30 U Marijuana (THC) Screen Presumptive negative 02/22/19 20:30 Disclamer 02/22/19 20:30 Active Medications - Current Medications Current Medications: Generic Name Dose Route Start Last Admin Trade Name Freq PRN Reason Stop Dose Admin Acetaminophen 650 mg 02/23/19 02:02 02/23/19 20:06 Tylenol PO 650 mg Q4H PRN Administration Pain MILD(1-3)/Fever >100.5/DUPREE Enoxaparin Sodium 40 mg 02/23/19 10:00 02/23/19 09:05 Lovenox SUB-Q 40 mg QDAY@1000 JESSICA Administration Furosemide 40 mg 02/24/19 10:00 Lasix PO DAILY JESSICA Sodium Chloride 1,000 mls @ 75 mls/hr 02/23/19 02:00 02/24/19 06:46 Nacl 0.9% 1000 Ml IV 75 mls/hr DIRECT JESSICA Administration Piperacillin Sod/Tazobactam Sod 3.375 gm in 50 mls @ 100 mls/hr 02/23/19 03:00 02/24/19 02:30 Zosyn/Ns 3.375gm/50ml IV 100 mls/hr Q8H JESSICA Administration Protocol Ondansetron HCl 4 mg 02/23/19 02:02 Zofran IV Q8H PRN Nausea And Vomiting Sodium Chloride 10 ml 02/23/19 10:00 02/23/19 22:56 Sodium Chloride Flush Syringe 10 Ml IV 10 ml BID JESSICA Administration Sodium Chloride 10 ml 02/23/19 02:02 Sodium Chloride Flush Syringe 10 Ml IV PRN PRN LINE FLUSH Warfarin Sodium 1 mg 02/24/19 17:00 Coumadin PO DAILY@1700 JESSICA
[2019-02-24] MEDS: SODIUM CHLORIDE FLUSH SYRINGE 10 ML IV SCH ×2 (10:22→21:20)
[2019-02-24] MEDS: LOVENOX SUB-Q SCH (10:23)
[2019-02-24] MEDS: LASIX PO SCH (10:23)
--- NOTE | 2019-02-24 12:15 | Consultation ---
History of Present Illness Consult date: 02/24/19 Consult reason: elevated troponin History of present illness: The patient states 68-year-old woman who was brought to the emergency room after being found on the floor at home. Cardiology consultation was requested for "NSTEMI", based on this finding of an isolated mild rise in troponin level of 0.03. EKG was a multifocal atrial rhythm at 107, otherwise no acute ST or T- wave abnormalities. On further evaluation, this patient has severe noncardiac clinical problems. She is severely emaciated, lives at home by herself, recently had a hip fracture surgery at [facility]. She Really does not have immediate family members available, and no home help. The history obtained from some close friends at the bedside, reports that over the past month alone, she has been found on the floor at home several times, has appeared unable to care for herself, and has very poor oral intake. As a result, she has registered severe progressive weight loss over the last few months. On this presentation I reviewed the chest x-ray which demonstrates bilateral fluffy pulmonary infiltrates consistent with bilateral pneumonia. White count is elevated at 13,000. The chest x-ray also shows evidence of prior coronary bypass surgery, a surgical mitral valve annular ring, and indwelling dual- chamber pacemaker. Past History Past Medical History: CAD Past Surgical History: CABG, Other (pacemaker) Medications and Allergies Allergies Allergy/AdvReac Type Severity Reaction Status Date / Time atorvastatin [From Lipitor] Allergy Unknown Verified 02/22/19 18:11 metoclopramide [From Reglan] Allergy Unknown Verified 02/22/19 21:06 promethazine [From Phenergan] Allergy Unknown Verified 02/22/19 21:06 Home Medications Medication Instructions Recorded Confirmed Last Taken Type Duloxetine HCl 60 mg PO DAILY 02/23/19 02/23/19 Unknown History Furosemide [Lasix TAB] 40 mg PO DAILY 02/23/19 02/23/19 Unknown History Metoprolol 25 mg PO QHS 02/23/19 02/23/19 Unknown History Metoprolol 50 mg PO DAILY 02/23/19 02/23/19 Unknown History Percocet 10/325 mg 2 mg PO QID 02/23/19 02/23/19 Unknown History Warfarin 1 mg PO DAILY 02/23/19 02/23/19 Unknown History Active Meds: Active Medications Acetaminophen (Tylenol) 650 mg PO Q4H PRN PRN Reason: Pain MILD(1-3)/Fever >100.5/DUPREE Last Admin: 02/23/19 20:06 Dose: 650 mg Documented by: Enoxaparin Sodium (Lovenox) 40 mg SUB-Q QDAY@1000 [facility] Last Admin: 02/24/19 10:23 Dose: 40 mg Documented by: Furosemide (Lasix) 40 mg PO DAILY [facility] Last Admin: 02/24/19 10:23 Dose: 40 mg Documented by: Sodium Chloride (Nacl 0.9% 1000 Ml) 1,000 mls @ 75 mls/hr IV DIRECT [facility] Last Admin: 02/24/19 06:46 Dose: 75 mls/hr Documented by: Piperacillin Sod/Tazobactam Sod (Zosyn/Ns 3.375gm/50ml) 3.375 gm in 50 mls @ 100 mls/hr IV Q8H [facility]; Protocol Last Admin: 02/24/19 02:30 Dose: 100 mls/hr Documented by: Ondansetron HCl (Zofran) 4 mg IV Q8H PRN PRN Reason: Nausea And Vomiting Sodium Chloride (Sodium Chloride Flush Syringe 10 Ml) 10 ml IV BID [facility] Last Admin: 02/24/19 10:22 Dose: 10 ml Documented by: Sodium Chloride (Sodium Chloride Flush Syringe 10 Ml) 10 ml IV PRN PRN PRN Reason: LINE FLUSH Warfarin Sodium (Coumadin) 1 mg PO DAILY@1700 [facility] Review of Systems ROS unobtainable: due to mental status Physical Examination Vital Signs Pulse Ox 94 02/22/19 17:36 General appearance: cachectic, other (patient appears severely emaciated) HEENT: Positive: PERRL Neck: Positive: neck supple Cardiac: Positive: Irregularly Regular Lungs: Positive: Decreased Breath Sounds Neuro: Positive: Weakness Abdomen: Positive: Soft Female genitourinary: deferred Skin: Positive: Clear Extremities: Absent: edema Results 02/23/19 05:18 02/23/19 05:18 Coagulation 02/23/19 02/24/19 Range/Units 20:12 05:01 PT 18.2 H 17.7 H (12.2-14.9) Sec. INR 1.41 H 1.36 H (0.87-1.13) EKG interpretations - Telemetry EKG Rhythm: Sinus Rhythm (with frequent PACs or a multifocal atrial rhythm) Assessment and Plan - Patient Problems (1) Altered mental status Current Visit: Yes Status: Acute Plan to address problem: There are no active cardiac issues this patient's presentation, we will defer to internal medicine for management of the patient's bilateral pneumonia, severe weight loss, poor nutritional status, and poor social and home living status. We will continue medical therapy for underlying coronary artery disease, I agree with echocardiogram for left ventricular function assessment which will enable us optimize cardiac medical therapy. Otherwise, conservative cardiac management, will follow intermittently.
[2019-02-24] MEDS: TYLENOL PO PRN ×2 (13:28→18:34)
[2019-02-24] MEDS ORDERED: COUMADIN PO SCH (17:00)
[2019-02-24] MEDS: IBUPROFEN PO PRN (21:20)
[2019-02-25] MEDS: ZOSYN/NS 3.375GM/50ML 3.375 GM/50 ML BAG IV SCH ×4 (03:04→18:32)
[2019-02-25] MEDS: IBUPROFEN PO PRN ×3 (05:10→21:18)
[2019-02-25 05:37] LABS: Eosinophils % (Auto) 0.5 % (0.0-4.3); Hematocrit 30.7 % (30.3-42.9); Hemoglobin 10.2 gm/dl (10.1-14.3); Lymphocytes # (Auto) 1.3 K/mm3 (1.2-5.4); Mean Corpuscular HGB Conc 33 % (30-34); Mean Corpuscular Volume 96 fl (79-97); Monocytes # (Auto) 0.5 K/mm3 (0.0-0.8); Monocytes % (Auto) 7.5 % (0.0-7.3); Platelet Count 205 K/mm3 (140-440); Red Blood Count 3.19 M/mm3 (3.65-5.03); Red Cell Distribution Width 18.1 % (13.2-15.2)
[2019-02-25 05:48] LABS: INR 2.37 (0.87-1.13)
[2019-02-25 06:02] LABS: BUN/Creatinine Ratio 15; Blood Urea Nitrogen 6 mg/dL (7-17); Calcium 8.2 mg/dL (8.4-10.2); Hemolysis Index 4
[2019-02-25] MEDS: LOVENOX SUB-Q SCH (09:28)
[2019-02-25] MEDS: LASIX PO SCH (09:28)
[2019-02-25] MEDS: SODIUM CHLORIDE FLUSH SYRINGE 10 ML IV SCH ×2 (09:29→21:22)
[2019-02-25] MEDS: NACL 0.9% 1000 ML 1,000 ML IV SCH (10:00)
--- NOTE | 2019-02-25 12:31 | Progress Note ---
Assessment and Plan Assessment and plan: --History of Coronary artery disease;s/p CABG Continue current cardiac medications --Positive troponins/non-ST elevation [place] Consults cardiology --History of heart valve replacement; supportive care --History of paroxysmal A. fib; patient is now in sinus rhythm Continue beta blockers, chronic anticoagulation with Coumadin --History of ICD; interrogation if needed --Metabolic encephalopathy /Altered Mental status; present on admission Multifactorial, supportive care, patient is more alert and awake responding appropriately to be --History of narcotic abuse; counseling advice to quit Patient advised detox program, psych consult if needed --Failure to thrive in an adult; nutrition supplements, nutrition consult Supportive care --Severe malnutrition; nutrition consult --Possible Pneumonia, possible aspiration versus HCAP Continue empiric antibiotics, follow cultures, supportive care Aspiration precautions --Hypertension; moderate control, continue current antihypertensives and when necessary medications --DVT prophylaxis; Lovenox --Discharge planning; possible rehabilitation versus SNF placement When medically stable Plan of care is reviewed with the patient and her nurse Follow cardiology evaluation and recommendations tomorrow History Interval history: Patient Seen and examined medical records to Patient is more alert and awake today looks chronically ill cachectic Denies chest pain or shortness of breath Hospitalist Physical - Constitutional Vitals: Temp Pulse Resp BP Pulse Ox 97.6 F 97 H 17 126/83 97 02/25/19 08:14 02/25/19 10:00 02/25/19 01:55 02/25/19 08:14 02/25/19 09:50 General appearance: Present: mild distress, cachectic, disheveled, other ( emaciated) - EENT Eyes: Present: PERRL, EOM intact - Neck Neck: Present: supple, normal ROM - Respiratory Respiratory effort: normal Respiratory: bilateral: diminished, negative: rales, rhonchi, wheezing - Cardiovascular Rhythm: regular Heart Sounds: Present: S1 & S2 - Extremities Extremities: no ischemia, No edema - Abdominal General gastrointestinal: soft, non-tender, non-distended, normal bowel sounds - Integumentary Integumentary: Present: clear, warm - Psychiatric Psychiatric: appropriate mood/affect, cooperative - Neurologic Neurologic: CNII-XII intact, moves all extremities Results - Labs CBC & Chem 7: 02/25/19 04:54 02/25/19 04:54 Labs: Laboratory Last Values WBC 7.1 K/mm3 (4.5-11.0) 02/25/19 04:54 RBC 3.19 M/mm3 (3.65-5.03) L 02/25/19 04:54 Hgb 10.2 gm/dl (10.1-14.3) 02/25/19 04:54 Hct 30.7 % (30.3-42.9) 02/25/19 04:54 MCV 96 fl (79-97) 02/25/19 04:54 MCH 32 pg (28-32) 02/25/19 04:54 MCHC 33 % (30-34) 02/25/19 04:54 RDW 18.1 % (13.2-15.2) H 02/25/19 04:54 Plt Count 205 K/mm3 (140-440) 02/25/19 04:54 Lymph % (Auto) 18.0 % (13.4-35.0) 02/25/19 04:54 [place] % (Auto) 7.5 % (0.0-7.3) H 02/25/19 04:54 Eos % (Auto) 0.5 % (0.0-4.3) 02/25/19 04:54 Baso % (Auto) 0.0 % (0.0-1.8) 02/25/19 04:54 Lymph # 1.3 K/mm3 (1.2-5.4) 02/25/19 04:54 [place] # 0.5 K/mm3 (0.0-0.8) 02/25/19 04:54 Eos # 0.0 K/mm3 (0.0-0.4) 02/25/19 04:54 Baso # 0.0 K/mm3 (0.0-0.1) 02/25/19 04:54 Add Manual Diff Complete 02/23/19 05:18 Total Counted 100 02/23/19 05:18 Seg Neutrophils % 74.0 % (40.0-70.0) H 02/25/19 04:54 Seg Neuts % (Manual) 90.0 % (40.0-70.0) H 02/23/19 05:18 1.0 % 02/23/19 05:18 2.0 % (13.4-35.0) L 02/23/19 05:18 Reactive Lymphs % (Man) 0 % 02/23/19 05:18 7.0 % (0.0-7.3) 02/23/19 05:18 0 % (0.0-4.3) 02/23/19 05:18 0 % (0.0-1.8) 02/23/19 05:18 0 % 02/23/19 05:18 0 % 02/23/19 05:18 0 % 02/23/19 05:18 0 % 02/23/19 05:18 Nucleated RBC % Not Reportable 02/23/19 05:18 Seg Neutrophils # 5.3 K/mm3 (1.8-7.7) 02/25/19 04:54 Seg Neutrophils # Man 12.4 K/mm3 (1.8-7.7) H 02/23/19 05:18 Band Neutrophils # 0.1 K/mm3 02/23/19 05:18 0.3 K/mm3 (1.2-5.4) L 02/23/19 05:18 Abs React Lymphs (Man) 0.0 K/mm3 02/23/19 05:18 1.0 K/mm3 (0.0-0.8) H 02/23/19 05:18 0.0 K/mm3 (0.0-0.4) 02/23/19 05:18 0.0 K/mm3 (0.0-0.1) 02/23/19 05:18 0.0 K/mm3 02/23/19 05:18 0.0 K/mm3 02/23/19 05:18 0.0 K/mm3 02/23/19 05:18 Blast Cells # 0.0 K/mm3 02/23/19 05:18 WBC Morphology Not Reportable 02/23/19 05:18 Hypersegmented Neuts Not Reportable 02/23/19 05:18 Hyposegmented Neuts Not Reportable 02/23/19 05:18 Hypogranular Neuts Not Reportable 02/23/19 05:18 Not Reportable 02/23/19 05:18 Not Reportable 02/23/19 05:18 Not Reportable 02/23/19 05:18 Not Reportable 02/23/19 05:18 Not Reportable 02/23/19 05:18 Not Reportable 02/23/19 05:18 Consistent w auto 02/23/19 05:18 Not Reportable 02/23/19 05:18 Plt Clumps, EDTA Not Reportable 02/23/19 05:18 Not Reportable 02/23/19 05:18 Not Reportable 02/23/19 05:18 Not Reportable 02/23/19 05:18 Plt Morphology Comment Not Reportable 02/23/19 05:18 RBC Morphology Not Reportable 02/23/19 05:18 Dimorphic RBCs Not Reportable 02/23/19 05:18 Not Reportable 02/23/19 05:18 Not Reportable 02/23/19 05:18 Not Reportable 02/23/19 05:18 1+ 02/23/19 05:18 Not Reportable 02/23/19 05:18 Not Reportable 02/23/19 05:18 Not Reportable 02/23/19 05:18 Not Reportable 02/23/19 05:18 Not Reportable 02/23/19 05:18 Not Reportable 02/23/19 05:18 Not Reportable 02/23/19 05:18 Not Reportable 02/23/19 05:18 Not Reportable 02/23/19 05:18 Not Reportable 02/23/19 05:18 Not Reportable 02/23/19 05:18 Not Reportable 02/23/19 05:18 Not Reportable 02/23/19 05:18 Not Reportable 02/23/19 05:18 Not Reportable 02/23/19 05:18 Acanthocytes (Spur) Not Reportable 02/23/19 05:18 Rouleaux Not Reportable 02/23/19 05:18 Not Reportable 02/23/19 05:18 Not Reportable 02/23/19 05:18 Not Reportable 02/23/19 05:18 Not Reportable 02/23/19 05:18 Hem Pathologist Commnt No 02/23/19 05:18 PT 27.5 Sec. (12.2-14.9) H 02/25/19 04:54 INR 2.37 (0.87-1.13) H 02/25/19 04:54 POC ABG pH 7.490 (7.35-7.45) H 02/22/19 19:05 POC ABG pCO2 43.4 (35-45) 02/22/19 19:05 POC ABG HCO3 33.1 (22-26 mml/L) 02/22/19 19:05 POC ABG Total CO2 34 (23-27mmol/L) 02/22/19 19:05 POC ABG O2 Sat 86 02/22/19 19:05 POC ABG Base Excess 10 ((-2) - (+3)mmol/L) 02/22/19 19:05 21 % 02/22/19 19:05 Sodium 142 mmol/L (137-145) 02/25/19 04:54 Potassium 3.0 mmol/L (3.6-5.0) L D 02/25/19 04:54 Chloride 95.7 mmol/L (98-107) L 02/25/19 04:54 Carbon Dioxide 37 mmol/L (22-30) H 02/25/19 04:54 12 mmol/L 02/25/19 04:54 BUN 6 mg/dL (7-17) L 02/25/19 04:54 0.4 mg/dL (0.7-1.2) L 02/25/19 04:54 Estimated GFR > 60 ml/min 02/25/19 04:54 15 % 02/25/19 04:54 Glucose 92 mg/dL (65-100) 02/25/19 04:54 POC Glucose 109 (70-105) H 02/22/19 17:44 Calcium 8.2 mg/dL (8.4-10.2) L 02/25/19 04:54 0.70 mg/dL (0.1-1.2) 02/22/19 18:46 AST 41 units/L (5-40) H 02/22/19 18:46 ALT 32 units/L (7-56) 02/22/19 18:46 161 units/L (35-129) H 02/22/19 18:46 49 units/L (30-135) 02/23/19 09:47 CK-MB (CK-2) 4.4 ng/mL (0.0-4.0) H 02/23/19 09:47 CK-MB (CK-2) Rel Index 8.9 (0-4) H 02/23/19 09:47 0.042 ng/mL (0.00-0.029) H 02/23/19 09:47 6.7 g/dL (6.3-8.2) 02/22/19 18:46 3.2 g/dL (3.9-5) L 02/22/19 18:46 0.9 % 02/22/19 18:46 Triglycerides 77 mg/dL (2-149) 02/23/19 05:18 Cholesterol 101 mg/dL (50-199) 02/23/19 05:18 31 mg/dL (50-130) L 02/23/19 05:18 54 mg/dL (40-59) 02/23/19 05:18 1.87 % 02/23/19 05:18 Yellow (Yellow) 02/22/19 20:30 Clear (Clear) 02/22/19 20:30 5.0 (5.0-7.0) 02/22/19 20:30 Ur Specific [place] 1.024 (1.003-1.030) 02/22/19 20:30 <15 mg/dl mg/dL (Negative) 02/22/19 20:30 Neg mg/dL (Negative) 02/22/19 20:30 Neg mg/dL (Negative) 02/22/19 20:30 Neg (Negative) 02/22/19 20:30 Neg (Negative) 02/22/19 20:30 Neg (Negative) 02/22/19 20:30 2.0 mg/dL (<2.0) 02/22/19 20:30 Ur Leukocyte Esterase Neg (Negative) 02/22/19 20:30 3.0 /HPF (0.0-6.0) 02/22/19 20:30 2.0 /HPF (0.0-6.0) 02/22/19 20:30 U Epithel Cells (Auto) 1.0 /HPF (0-13.0) 02/22/19 20:30 Hyaline Casts 3 /LPF 02/22/19 20:30 1+ /HPF 02/22/19 20:30 Presumptive negative 02/22/19 20:30 Presumptive negative 02/22/19 20:30 Ur Barbiturates Screen Presumptive negative 02/22/19 20:30 Ur Phencyclidine Scrn Presumptive negative 02/22/19 20:30 Ur Amphetamines Screen Presumptive negative 02/22/19 20:30 U Benzodiazepines Scrn Presumptive negative 02/22/19 20:30 Presumptive negative 02/22/19 20:30 U Marijuana (THC) Screen Presumptive negative 02/22/19 20:30 Disclamer 02/22/19 20:30 Active Medications - Current Medications Current Medications: Generic Name Dose Route Start Last Admin Trade Name Freq PRN Reason Stop Dose Admin Acetaminophen 650 mg 02/23/19 02:02 02/24/19 18:34 Tylenol PO 650 mg Q4H PRN Administration Pain MILD(1-3)/Fever >100.5/DUPREE Enoxaparin Sodium 40 mg 02/23/19 10:00 02/25/19 09:28 Lovenox SUB-Q 40 mg QDAY@1000 JESSICA Administration Furosemide 40 mg 02/24/19 10:00 02/25/19 09:28 Lasix PO 40 mg DAILY JESSICA Administration Sodium Chloride 1,000 mls @ 75 mls/hr 02/23/19 02:00 02/25/19 10:00 Nacl 0.9% 1000 Ml IV 75 mls/hr DIRECT JESSICA Administration Piperacillin Sod/Tazobactam Sod 3.375 gm in 50 mls @ 100 mls/hr 02/23/19 03:00 02/25/19 10:00 Zosyn/Ns 3.375gm/50ml IV 100 mls/hr Q8H JSESICA Administration Protocol Ibuprofen 600 mg 02/24/19 21:02 02/25/19 05:10 Ibuprofen PO 600 mg Q6H PRN Administration Pain, Mild (1-3) Ondansetron HCl 4 mg 02/23/19 02:02 Zofran IV Q8H PRN Nausea And Vomiting Sodium Chloride 10 ml 02/23/19 10:00 02/25/19 09:29 Sodium Chloride Flush Syringe 10 Ml IV 10 ml BID JESSICA Administration Sodium Chloride 10 ml 02/23/19 02:02 Sodium Chloride Flush Syringe 10 Ml IV PRN PRN LINE FLUSH Warfarin Sodium 1 mg 02/24/19 17:00 02/24/19 16:50 Coumadin PO 1 mg DAILY@1700 JESSICA Administration Nutrition/Malnutrition Assess - Dietary Evaluation Nutrition/Malnutrition Findings: Nutrition Notes Start: 02/24/19 16:17 Freq: Status: Active Protocol: Document 02/24/19 16:17 RM (Rec: 02/24/19 16:26 RM [id number]) Nutrition Notes Need for Assessment generated from: MD Order Initial or Follow up Assessment Current Diagnosis Coronary Artery Disease, Hypertension Other Pertinent Diagnosis Metabolic encephalopathy, FTT, Hx narcotic abuse Current Diet Cardiac Labs/Tests Reviewed Pertinent Medications Reviewed Height 5 ft 5 in Weight 46.295 kg Usual Body Weight 45.91 kg [place] Body Weight (kg) 56.81 BMI 16.9 Subjective/Other Information Consulted for malnutrition. Pt stated that HEAD OF ART her appetite was alright and that she ate 2 small meals w/snacks daily for the past few months . Stated that her appetite here is poor. Noted lunch at bedside w/25% eaten. Stated UBW was 101 lbs 2 months ago. Noted temporal wasting. Percent of energy/protein needs met: 36%/37% Burn Absent Trauma Absent #1 Nutrition Diagnosis Malnutrition Etiology metabolic encephalopathy, Hx of narcotic abuse As Evidenced by Signs and Symptoms pt statement that HEAD OF ART she ate 2 small meals daily w/snacks for the past few months, temporal wasting, BMI of 17 Is patient on ventilator? No Is Patient Ambulatory and/or Out of Bed No REE-([facility]-confined to bed) 1192.656 Kcal/Kg value to use for calculation 32 Approximate Energy Requirements Using 1481 kcal/Kg Calculation Used for Recommendations Kcal/kg Additional Notes Protein Needs: 56-69g (1.2-1. 5g/kg) Fluid Needs: 1 ml/kcal Nutrition Intervention Change Diet Order: Continue current Add Supplement/Snack (indicate name/kcal Ensure Enlive Chocolate TID /protein ) Provides kCal: 1,050 Provides Protein (gm) 60 Goal #1 Meet at least 75% of calorie and protein needs via PO and ONS intakes Anticipated Discharge Needs: Cardiac diet Follow-Up By: 02/26/19 Additional Comments Follow for PO and ONS intakes
--- NOTE | 2019-02-25 12:40 | Progress Note ---
Assessment and Plan - Patient Problems (1) Altered mental status Current Visit: Yes Status: Acute Plan to address problem: There are no active cardiac issues this patient's presentation, we will defer to internal medicine for management of the patient's bilateral pneumonia, severe weight loss, poor nutritional status, and poor social and home living status. We will continue medical therapy for underlying coronary artery disease, I agree with echocardiogram for left ventricular function assessment which will enable us optimize cardiac medical therapy. Otherwise, conservative cardiac management, will follow intermittently. Subjective Date of service: 02/25/19 Interval history: No new cardiac complaints, patient is undergoing physical therapy. Objective Vital Signs Temp Pulse Resp BP BP Pulse Ox 02/25/19 10:00 97 H 02/25/19 09:50 97 02/25/19 08:14 97.6 F 97 H 126/83 97 02/25/19 08:10 97.6 F 107 H 117/78 100 02/25/19 01:56 83 99 02/25/19 01:55 96.7 F L 70 17 122/67 99 02/24/19 20:14 99.2 F 92 H 119/65 02/24/19 20:12 89 98 02/24/19 13:29 98.6 F 84 20 128/66 89 - Physical Examination General: No Apparent Distress, Cachectic HEENT: Positive: PERRL Neck: Positive: neck supple Cardiac: Positive: Reg Rate and Rhythm Lungs: Positive: Decreased Breath Sounds Neuro: Positive: Weakness Abdomen: Positive: Soft Skin: Positive: Clear Extremities: Absent: edema - Labs and Meds Coagulation 02/25/19 Range/Units 04:54 PT 27.5 H (12.2-14.9) Sec. INR 2.37 H (0.87-1.13) CBC 02/25/19 Range/Units 04:54 WBC 7.1 (4.5-11.0) K/mm3 RBC 3.19 L (3.65-5.03) M/mm3 Hgb 10.2 (10.1-14.3) gm/dl Hct 30.7 (30.3-42.9) % Plt Count 205 (140-440) K/mm3 Lymph # 1.3 (1.2-5.4) K/mm3 [place] # 0.5 (0.0-0.8) K/mm3 Eos # 0.0 (0.0-0.4) K/mm3 Baso # 0.0 (0.0-0.1) K/mm3 Comprehensive Metabolic Panel 02/25/19 Range/Units 04:54 Sodium 142 (137-145) mmol/L Potassium 3.0 L D (3.6-5.0) mmol/L Chloride 95.7 L (98-107) mmol/L Carbon Dioxide 37 H (22-30) mmol/L BUN 6 L (7-17) mg/dL Creatinine 0.4 L (0.7-1.2) mg/dL Glucose 92 (65-100) mg/dL Calcium 8.2 L (8.4-10.2) mg/dL
[2019-02-25] MEDS ORDERED: PERCOCET 5/325 PO PRN (15:41)
[2019-02-25] MEDS ORDERED: K-DUR PO ONE (16:00)
[2019-02-25] MEDS: KCL 10MEQ/100ML 10 MEQ/100 ML BAG IV SCH ×2 (17:48→19:00)
[2019-02-25] MEDS ORDERED: NON-FORMULARY (Metoprolol 25 MG) PO SCH (22:00)
[2019-02-25] MEDS: LOPRESSOR PO SCH (22:17)
[2019-02-26] MEDS: ZOSYN/NS 3.375GM/50ML 3.375 GM/50 ML BAG IV SCH ×2 (03:07→11:11)
[2019-02-26] MEDS: IBUPROFEN PO PRN (03:48)
[2019-02-26 05:19] LABS: BUN/Creatinine Ratio 28; Blood Urea Nitrogen 11 mg/dL (7-17); Calcium 8.4 mg/dL (8.4-10.2); Hemolysis Index 23; INR 2.05 (0.87-1.13)
[2019-02-26] MEDS: LOPRESSOR PO SCH (09:38)
[2019-02-26] MEDS: LASIX PO SCH (09:39)
[2019-02-26] MEDS: SODIUM CHLORIDE FLUSH SYRINGE 10 ML IV SCH (09:43)
[2019-02-26] MEDS: TYLENOL PO PRN (09:49)
[2019-02-26] MEDS: NACL 0.9% 1000 ML 1,000 ML IV SCH (11:11)
--- NOTE | 2019-02-26 13:54 | Discharge Summary ---
Providers - Providers Date of Admission: 02/22/19 22:29 Date of discharge: 02/26/19 Attending physician: JAMIL ARNOLD 02/23/19 12:42 Physical Therapy Evaluation and Treat [CONS] Routine Comment: Reason For Exam: Unsteady Gait 02/23/19 12:43 Occupational Therapy Evaluate and Treat [CONS] Routine Comment: Reason For Exam: Debility 02/23/19 19:35 Consult to Dietitian/Nutrition [CONS] Routine Physician Instructions: Reason For Exam: Reason for Consult: Malnutrition 02/23/19 19:40 Consult to Physician [CONS] Routine Comment: Consulting Provider: EDWARDO RENEE Physician Instructions: Reason For Exam: NSTEMI/h/o CAD s/p CABG Primary care physician: MERARI GREER Hospitalization Reason for admission: altered level of consciousness/recurrent falls/ Condition: Fair Pertinent studies: Chest x-ray CT head Echocardiogram Hospital course: 68 -year-old woman with a history of hypertension, coronary artery disease, A. fib was brought to the emergency room by friends for [place] [facility] placement as recommended by her primary care physician. The patient is unable to give a history. Per the emergency room physician, she is been having multiple falls, recent hip surgery and was discharged to rehabilitation and subsequently discharged to home. Patient was found on the floor by her friends. Patient has history of recurrent falls, unable to care for self, failure to thrive, admitted through emergency room Patient was noted to have elevated troponins, evaluated by cardiology, no further cardiac workup was recommended, patient was found to have A. fib with rapid ventricular rate, Cardizem and beta blockers was recommended, however patient's blood pressures were labile, with intermittent hypotensive episodes, Cardizem was given as permitted by blood pressures, beta blockers were held. Patient received physical therapy occupational therapy Evaluated by case management, set up custodial facility placement Today the patient is comfortable, vital signs reviewed Discharged to SNF today At time of discharge patient's INR is therapeutic Mild hypomagnesemia which was replaced Discharge Diagnosis: --History of paroxysmal A. fib; patient is now in sinus rhythm Continue Cardizem, hold beta blockers as patient is hypotensive chronic anticoagulation with Coumadin --Hypertension; labile blood pressures. Hypotensive at times Cardizem for A. fib as blood pressure permits, we'll hold beta blockers --History of Coronary artery disease;s/p CABG Continue current cardiac medications --Positive troponins/non-ST elevation CT Consults cardiology --Chronic systolic congestive heart failure; ejection fraction 35-40% Continue current management --History of heart valve replacement; supportive care --History of ICD; interrogation if needed --Metabolic encephalopathy /Altered Mental status; present on admission Multifactorial, supportive care, patient is more alert and awake responding appropriately --History of narcotic abuse; counseling advice to quit Patient advised detox program, psych consult if needed --Failure to thrive in an adult; nutrition supplements, nutrition consult Supportive care --Severe malnutrition; nutrition consult --Possible Pneumonia, possible aspiration versus HCAP Continue empiric antibiotics, follow cultures, supportive care Aspiration precautions Disposition: DC/[place]-03 SNF W [facility] C[facility] Time spent for discharge: 32 min Core Measure Documentation - Palliative Care Palliative Care/ Comfort Measures: Not Applicable - Core Measures Any of the following diagnoses?: heart failure, none - Heart Failure Discharge Requirements LISETTE/ARB for LVSD if EF <40%: No Reason for no LISETTE/ARB: Hypotension Beta madeline at discharge: No Reason for no beta madeline on DC: Hypotension Exam - Constitutional Vitals: Temp Pulse Resp BP Pulse Ox 98.4 F 113 H 18 125/63 99 02/26/19 07:59 02/26/19 09:38 02/26/19 09:49 02/26/19 09:38 02/26/19 08:56 General appearance: Present: no acute distress, well-nourished - EENT Eyes: Present: PERRL, EOM intact - Neck Neck: Present: supple, normal ROM - Respiratory Respiratory effort: normal Respiratory: bilateral: diminished, negative: rales, rhonchi, wheezing - Cardiovascular Rhythm: regular Heart Sounds: Present: S1 & S2 - Extremities Extremities: no ischemia, No edema - Abdominal General gastrointestinal: Present: soft, non-distended, normal bowel sounds - Integumentary Integumentary: Present: clear, warm - Musculoskeletal Musculoskeletal: strength equal bilaterally - Psychiatric Psychiatric: appropriate mood/affect, cooperative - Neurologic Neurologic: CNII-XII intact, moves all extremities Plan Activity: advance as tolerated, fall precautions Diet: other (cardiac diet) Special Instructions: physical therapy Additional Instructions: Target INR 2-3. Next INR check in 2 days. Fall Precautions. Nutrition supplement Ensure Plus 1 can 3 times a day with meals Follow up with: MERARI GREER JR, MD [Primary Care Provider] - 3-5 Days Forms: Warfarin Discharge Instruction Prescriptions: dilTIAZem [CarDIZEM] 30 mg PO Q8H #30 tablet oxyCODONE /ACETAMINOPHEN [Percocet 5/325] 1 tab PO Q8H PRN #20 tablet PRN Reason: Pain
--- NOTE | 2019-02-26 13:54 | Progress Note ---
Assessment and Plan Bilateral pneumonia Isolated mild rise in troponin Paroxysmal Afib on warfarin for oral anticoagulation therapy on metoprolol for suppression Recent hip fracture surgery at [facility] Poor oral intake Chest x-ray also shows evidence of prior coronary bypass surgery, a surgical mitral valve annular ring, and indwelling dual-chamber pacemaker. We will discontinue metoprolol and instead, use Cardizem 30mg for management of paroxysmal atrial fibrillation. Otherwise, conservative cardiac management. Subjective Date of service: 02/26/19 Interval history: Rapid atrial fibrillation on telemetry overnight. Patient remained asymptomatic. Objective Vital Signs Temp Pulse Resp BP Pulse Ox 02/26/19 09:49 18 02/26/19 09:38 113 H 125/63 02/26/19 08:56 99 02/26/19 07:59 98.4 F 113 H 18 125/63 98 02/26/19 02:08 86 123/72 98 02/26/19 02:00 99.7 F H 02/25/19 22:17 74 107/58 02/25/19 22:04 96 02/25/19 17:10 98.6 F 91 H 94/62 91 - Physical Examination General: No Apparent Distress, Cachectic HEENT: Positive: PERRL Neck: Positive: neck supple Cardiac: Positive: irregularly irregular Lungs: Positive: Decreased Breath Sounds Neuro: Positive: Weakness Abdomen: Positive: Soft Extremities: Absent: edema - Labs and Meds Coagulation 02/26/19 Range/Units 03:58 PT 24.5 H (12.2-14.9) Sec. INR 2.05 H (0.87-1.13) Comprehensive Metabolic Panel 02/26/19 Range/Units 03:58 Sodium 142 (137-145) mmol/L Potassium 3.9 D (3.6-5.0) mmol/L Chloride 96.0 L (98-107) mmol/L Carbon Dioxide 38 H (22-30) mmol/L BUN 11 (7-17) mg/dL Creatinine 0.4 L (0.7-1.2) mg/dL Glucose 96 (65-100) mg/dL Calcium 8.4 (8.4-10.2) mg/dL
[2019-02-26] MEDS ORDERED: CARDIZEM PO SCH (14:00)
[2019-02-26 14:35] VITALS: BP 98/59
[2019-02-26] MEDS ORDERED: COUMADIN PO SCH (17:00)
[2019-02-27] MEDS ORDERED: CARDIZEM CD PO SCH (10:00)
[2019-02-27] MEDS ORDERED: MAG-OX PO ONE (14:00)
== END 2019-02-26 16:12 | DRG 280 ==
LOC: ED 17:29 → 2B-ACE 22:29
PROVIDERS: ADMIT Internal Medicine; ATTEND Internal Medicine
PROC: 4A033R1 Measurement of Arterial Saturation, Peripheral, Percutaneous Approach (ICD-10-PCS; principal; 2019-02-22)
DX: I21.4 Non-ST elevation (NSTEMI) myocardial infarction (principal); J18.9 Pneumonia, unspecified organism; G93.41 Metabolic encephalopathy; E43 Unspecified severe protein-calorie malnutrition; F11.20 Opioid dependence, uncomplicated; Z68.1 Body mass index [BMI] 19.9 or less, adult; R62.7 Adult failure to thrive; I10 Essential (primary) hypertension; I25.10 Atherosclerotic heart disease of native coronary artery without angina pectoris; I48.0 Paroxysmal atrial fibrillation; Z95.1 Presence of aortocoronary bypass graft; Z95.810 Presence of automatic (implantable) cardiac defibrillator
CPT/HCPCS: 36415; 70450; 71045; 80048; 80053; 80061; 80307; 81001; 82550; 82553; 82803; 82962; 83735; 84484; 85007; 85025; 85610; 87040; 93005; 93010; 93306; 94760; 96374; G0378; J1650; J1956; J2310; J2405; J2543; J3480; J7030

== ENCOUNTER 2019-03-15 23:44 | Inpatient (IN) | payer MEDICARE, OTHER ==
[2019-03-16] MEDS ORDERED: DILAUDID IV ONE ×3 (00:15→00:53)
--- NOTE | 2019-03-16 00:17 | Emergency Department Report ---
ED Lower Extremity HPI - General Chief Complaint: Extremity Injury, Lower Stated Complaint: FALL/LEFT FEMUR INJURY Time Seen by Provider: 03/16/19 00:02 Source: patient, EMS Mode of arrival: Stretcher Limitations: Physical Limitation - History of Present Illness Initial Comments: Patient is a 68-year-old female that presents emergency room with complaints of left leg pain is 1 3 weeks. Patient had a x-ray today complaining 3 weeks and the x-ray shows a fracture. [facility] here for further evaluation and treatment. Patient complaining of 10 out of 10 pain. Patient states the pain is worse with movement and better with remaining still and rest. MD Complaint: hip injury -: Sudden, week(s) Injury: Hip: Left Place: home Severity: severe Severity scale (0 -10): 10 Improves With: rest Worsens With: movement, palpation Context: fall Associated Symptoms: unable to bear weight - Related Data Home Medications Medication Instructions Recorded Confirmed Last Taken Duloxetine HCl 60 mg PO DAILY 02/23/19 02/23/19 Unknown Furosemide [Lasix TAB] 40 mg PO DAILY 02/23/19 02/23/19 Unknown Previous Rx's Medication Instructions Recorded Last Taken Type Ibuprofen [Motrin 600 MG tab] 600 mg PO Q6H PRN tablet 02/26/19 Unknown Rx Warfarin [Coumadin] 1 mg PO DAILY@1700 tablet 02/26/19 Unknown Rx dilTIAZem [CarDIZEM] 30 mg PO Q8H #30 tablet 02/26/19 Unknown Rx oxyCODONE /ACETAMINOPHEN [Percocet 1 tab PO Q8H PRN #20 tablet 02/26/19 Unknown Rx 5/325] Allergies Allergy/AdvReac Type Severity Reaction Status Date / Time atorvastatin [From Lipitor] Allergy Unknown Verified 02/22/19 18:11 metoclopramide [From Reglan] Allergy Unknown Verified 02/22/19 21:06 promethazine [From Phenergan] Allergy Unknown Verified 02/22/19 21:06 ED Review of Systems ROS: Stated complaint: FALL/LEFT FEMUR INJURY Other details as noted in HPI Constitutional: denies: chills, fever Eyes: denies: eye pain, eye discharge, vision change ENT: denies: ear pain, throat pain Respiratory: denies: cough, shortness of breath, wheezing Cardiovascular: denies: chest pain, palpitations Endocrine: no symptoms reported Gastrointestinal: denies: abdominal pain, nausea, diarrhea Genitourinary: denies: urgency, dysuria, discharge Musculoskeletal: denies: back pain, joint swelling, arthralgia Skin: denies: rash, lesions Neurological: denies: headache, weakness, paresthesias Psychiatric: denies: anxiety, depression Hematological/Lymphatic: denies: easy bleeding, easy bruising ED Past Medical Hx - Past Medical History Previous Medical History?: Yes Hx Hypertension: Yes Hx GERD: Yes Additional medical history: A. FIB - Surgical History Past Surgical History?: Yes Hx Open Heart Surgery: Yes (CABG) Hx Pacemaker: Yes (Left chest) Hx Internal Defibrillator: Yes (Left chest) - Family History Family history: no significant - Social History Smoking Status: Never Smoker Substance Use Type: None - Medications Home Medications: Home Medications Medication Instructions Recorded Confirmed Last Taken Type Duloxetine HCl 60 mg PO DAILY 02/23/19 02/23/19 Unknown History Furosemide [Lasix TAB] 40 mg PO DAILY 02/23/19 02/23/19 Unknown History Ibuprofen [Motrin 600 MG tab] 600 mg PO Q6H PRN tablet 02/26/19 Unknown Rx Warfarin [Coumadin] 1 mg PO DAILY@1700 tablet 02/26/19 Unknown Rx dilTIAZem [CarDIZEM] 30 mg PO Q8H #30 tablet 02/26/19 Unknown Rx oxyCODONE /ACETAMINOPHEN [Percocet 1 tab PO Q8H PRN #20 tablet 02/26/19 Unknown Rx 5/325] ED Physical Exam - General Limitations: Physical Limitation General appearance: alert, in no apparent distress - Head Head exam: Present: atraumatic, normocephalic - Eye Eye exam: Present: normal appearance - ENT ENT exam: Present: mucous membranes moist - Neck Neck exam: Present: normal inspection - Respiratory Respiratory exam: Present: normal lung sounds bilaterally. Absent: respiratory distress - Cardiovascular Cardiovascular Exam: Present: regular rate, normal rhythm. Absent: systolic murmur, diastolic murmur, rubs, gallop - GI/Abdominal GI/Abdominal exam: Present: soft, normal bowel sounds. Absent: distended, tenderness, guarding - Rectal Rectal exam: Present: deferred - Extremities Exam Extremities exam: Present: normal inspection (except for lateral rotation of the left lower extremity), tenderness (left hip tenderness.) - Back Exam Back exam: Present: normal inspection - Neurological Exam Neurological exam: Present: alert, oriented X3 - Psychiatric Psychiatric exam: Present: normal affect, normal mood - Skin Skin exam: Present: warm, dry, intact, normal color. Absent: rash ED Course Vital Signs 03/15/19 03/16/19 03/16/19 23:59 00:00 00:11 Blood Pressure 106/44 106/44 O2 Sat by Pulse 99 97 98 Oximetry 03/16/19 03/16/19 03/16/19 00:15 00:31 00:45 Blood Pressure 113/57 116/59 102/44 O2 Sat by Pulse 98 98 97 Oximetry 03/16/19 03/16/19 01:01 01:15 Blood Pressure 113/57 102/54 O2 Sat by Pulse 96 95 Oximetry - Reevaluation(s) Reevaluation #1: She is still complaining of extreme hip pain. Patient was given more Dilaudid 03/16/19 00:35 Patient still complaining of pain. Discussed all results with patient. Patient will be admitted to the hospitalist service. Patient agrees to plan of care. 03/16/19 02:01 - Consultations Consultation #1: Orthopedics paged 03/16/19 00:[address] Manzano, orthopedist. Dr. Manzano recommends admission to the hospitalist service. 03/16/19 01:19 Consultation #2: Hospitalist consulted for admission. Hospitalist to admit patient. Hospitalist to assume care patient. 03/16/19 01:30 ED Lower Extremity MDM - Lab Data Result diagrams: 03/16/19 00:21 03/16/19 00:21 - Radiology Data Radiology results: report reviewed, image reviewed interpreted by me: Left intertrochanteric fracture PROCEDURE: XR FEMUR 2+V LT TECHNIQUE: AP and lateral views of the left femur, 4 views total HISTORY: Fracture per [facility] COMPARISONS: FINDINGS: There is an acute intertrochanteric fracture of the left proximal femur. There is resultant varus deformity. The left femoral head is aligned within the acetabulum. The mid to distal femur is intact. There is associated focal soft tissue swelling. IMPRESSION: Acute left intertrochanteric fracture - Medical Decision Making Patient is a 68-year-old female that presents emergency room with hip pain 3 weeks. [facility] and found to have a left hip fracture. Patient was sent to the ER for further evaluation treatment. Patient admitted to the hospitalist service. Orthopedics consult. Patient had labs done which show significant findings of anemia. Patient given multiple doses of pain medications. . - Differential Diagnosis hip fracture. Hip pain. Fall Critical Care Time: Yes Critical care attestation.: If time is entered above; I have spent that time in minutes in the direct care of this critically ill patient, excluding procedure time. Critical Care Time: 35 minutes ED Disposition Clinical Impression: Hip pain Qualifiers: Laterality: left Qualified Code(s): M25.552 - Pain in left hip Anemia Qualifiers: Anemia type: unspecified type Qualified Code(s): D64.9 - Anemia, unspecified Closed left hip fracture Qualifiers: Encounter type: initial encounter Qualified Code(s): S72.002A - Fracture of unspecified part of neck of left femur, initial encounter for closed fracture Disposition: 09 OP ADMIT IP TO THIS HOSP Is pt being admited?: Yes Does the pt Need Aspirin: No Condition: Critical Time of Disposition: 01:20
[2019-03-16 00:38] LABS: Hematocrit 25.3 % (30.3-42.9); Mean Corpuscular HGB Conc 36 % (30-34); Mean Corpuscular Volume 95 fl (79-97); Platelet Count 283 K/mm3 (140-440); Red Blood Count 2.65 M/mm3 (3.65-5.03); Red Cell Distribution Width 19.1 % (13.2-15.2)
[2019-03-16] MEDS ORDERED: DILAUDID ONE (00:39)
[2019-03-16 01:01] LABS: Alanine Aminotransferase 48 units/L (7-56); Albumin 3.1 g/dL (3.9-5); BUN/Creatinine Ratio 78; Blood Urea Nitrogen 31 mg/dL (7-17); Calcium 9.1 mg/dL (8.4-10.2); Hemolysis Index 0
[2019-03-16] MEDS ORDERED: ZOFRAN IV PRN (01:54)
[2019-03-16] MEDS ORDERED: SODIUM CHLORIDE FLUSH SYRINGE 10 ML IV PRN (01:54)
[2019-03-16] MEDS ORDERED: TYLENOL PO PRN (01:54)
--- NOTE | 2019-03-16 01:57 | XRay Report ---
PROCEDURE: XR FEMUR 2+V LT TECHNIQUE: AP and lateral views of the left femur, 4 views total HISTORY: Fracture per alf COMPARISONS: FINDINGS: There is an acute intertrochanteric fracture of the left proximal femur. There is resultant varus deformity. The left femoral head is aligned within the acetabulum. The mid to distal femur is intact. There is associated focal soft tissue swelling. IMPRESSION: Acute left intertrochanteric fracture This document is electronically signed by Tori Coulter MD., March 16 2019 01:55:16 AM ET
--- NOTE | 2019-03-16 01:57 | History and Physical Report ---
History of Present Illness Date of examination: 03/16/19 History of present illness: 68 -year-old woman with a history of hypertension, coronary artery disease, A. fib, depression was brought to the for evaluation of left hip pain. She stated that she said the left hip pain for 3 weeks, [facility] which shows fracture, she was sent here for further evaluation Review of systems Constitutional: no weight loss, chills, fever Ears, eyes, nose, mouth and throat: no nasal congestion, no nasal discharge, no sinus pressure, no vision change, no red eye. Neck: No neck pain or rigidity. Cardiovascular: no palpitations, chest pain Respiratory: no cough, shortness of breath Gastrointestinal: no hematochezia, abdominal pain Genitourinary : no frequency , no hematuria Musculoskeletal: no joint swelling or muscle ache Integumentary: no rash, no pruritis Neurological: no parathesias, no focal weakness Endocrine: no cold or heat intolerance, no polyuria or polydipsia Hematologic/Lymphatic: no easy bruising, no easy bleeding, no gland swelling Allergic/Immunologic: no urticaria, no angioedema. PAST MEDICAL HISTORY:hypertension, coronary artery disease, A. fib, Depression PAST SURGICAL HISTORY: CABG, AICD, orif of right hip SOCIAL HISTORY: No alcohol, drugs, tobacco FAMILY HISTORY: hypertension Medications and Allergies Allergies Allergy/AdvReac Type Severity Reaction Status Date / Time atorvastatin [From Lipitor] Allergy Unknown Verified 02/22/19 18:11 metoclopramide [From Reglan] Allergy Unknown Verified 02/22/19 21:06 promethazine [From Phenergan] Allergy Unknown Verified 02/22/19 21:06 Home Medications Medication Instructions Recorded Confirmed Last Taken Type Duloxetine HCl 60 mg PO DAILY 02/23/19 02/23/19 Unknown History Furosemide [Lasix TAB] 40 mg PO DAILY 02/23/19 02/23/19 Unknown History Ibuprofen [Motrin 600 MG tab] 600 mg PO Q6H PRN tablet 02/26/19 Unknown Rx Warfarin [Coumadin] 1 mg PO DAILY@1700 tablet 02/26/19 Unknown Rx dilTIAZem [CarDIZEM] 30 mg PO Q8H #30 tablet 02/26/19 Unknown Rx oxyCODONE /ACETAMINOPHEN [Percocet 1 tab PO Q8H PRN #20 tablet 02/26/19 Unknown Rx 5/325] Active Meds: Active Medications Acetaminophen (Tylenol) 650 mg PO Q4H PRN PRN Reason: Pain MILD(1-3)/Fever >100.5/DUPREE Enoxaparin Sodium (Lovenox) 30 mg SUB-Q QDAY JESSICA Sodium Chloride (Nacl 0.9% 1000 Ml) 1,000 mls @ 75 mls/hr IV DIRECT JESSICA Morphine Sulfate (Morphine) 1 mg IV Q4H PRN PRN Reason: Pain, Moderate (4-6) Ondansetron HCl (Zofran) 4 mg IV Q8H PRN PRN Reason: Nausea And Vomiting Sodium Chloride (Sodium Chloride Flush Syringe 10 Ml) 10 ml IV BID JESSICA Sodium Chloride (Sodium Chloride Flush Syringe 10 Ml) 10 ml IV PRN PRN PRN Reason: LINE FLUSH Exam - Physical Exam Narrative exam: General Apperance: The patient lying in bed, breathing comfortable HEENT: Normocephalic, atraumatic. Pupils equally round and reactive to light, EOMI, no sclericterus or JVD or thyromegaly or nodule. , no carotid bruit, mucous membranes moist, no exudate or erythema Heart: S1-S2, regular is rhythm Lungs: Clear to auscultation bilaterally, breathing comfortable Abdomen: Positive bowel sounds, soft, nontender, nondistended, no organomegaly Extremities: No edema cyanosis clubbing Skin: no rash, nodule, warm and dry Neuro: cranial nerves 2-12 intact, speech is fluent, motor/sensory intact - Constitutional Vitals: Temp Pulse Resp BP Pulse Ox 102/54 95 03/16/19 01:15 03/16/19 01:15 Results - Labs CBC & Chem 7: 03/16/19 00:21 03/16/19 00:21 Labs: Abnormal lab results 03/16/19 03/16/19 Range/Units 00:21 00:21 RBC 2.65 L (3.65-5.03) M/mm3 Hgb 9.0 L (10.1-14.3) gm/dl Hct 25.3 L (30.3-42.9) % MCH 34 H (28-32) pg MCHC 36 H (30-34) % RDW 19.1 H (13.2-15.2) % Chloride 94.4 L (98-107) mmol/L Carbon Dioxide 35 H (22-30) mmol/L BUN 31 H (7-17) mg/dL Creatinine 0.4 L (0.7-1.2) mg/dL AST 41 H (5-40) units/L Alkaline Phosphatase 224 H (35-129) units/L Total Protein 5.6 L (6.3-8.2) g/dL Albumin 3.1 L (3.9-5) g/dL Assessment and Plan Assessment Acute left intertrochanteric fracture Hypertension Coronary artery disease A. fib Depression Plan Admit to medicine Nothing by mouth, IV fluids, consult orthopedic Check PT INR, ? patient on Coumadin Continue appropriate outpatient medications DVT prophylaxis
[2019-03-16 07:02] LABS: INR 2.1 (0.87-1.13)
[2019-03-16] MEDS ORDERED: SUBLIMAZE ONE (08:55)
[2019-03-16] MEDS ORDERED: DIPRIVAN 10 MG/ML IV ONE (08:55)
[2019-03-16] MEDS: MORPHINE IV PRN (09:19)
[2019-03-16] MEDS: LOVENOX SUB-Q SCH (09:19)
--- NOTE | 2019-03-16 10:19 | Consultation ---
History of Present Illness Consult date: 03/16/19 Consult reason: pre op evaluation History of present illness: This is a frail 68 year old woman with multiple medical problems. She has a history of ischemic cardiomyopathy, coronary artery disease, valvular disease and is status post single vessel bypass grafting with mitral valve repair and tricuspid valve repair. An echocardiogram done 3-4 weeks ago reports a mild to moderate decrease left ventricular systolic function, ejection fraction 35- 40%.She has persistent atrial fibrillation with prior MAZE procedure, on warfarin for oral anticoagulation. She also has a pacemaker implant for history of sick sinus syndrome. Patient was sent from the correction with severe left hip and leg pain, admitted with fracture of the left proximal femur. Patient is planned for surgery. A cardiac consultation has been requested for cardiac risk assessment. Patient reports recent right hip surgery at [facility] without complications. She denies chest pain, unusual shortness of breath and palpitations. She has an INR of 2.10. There is no ECG available for review. Medications and Allergies Allergies Allergy/AdvReac Type Severity Reaction Status Date / Time atorvastatin [From Lipitor] Allergy Unknown Verified 02/22/19 18:11 metoclopramide [From Reglan] Allergy Unknown Verified 02/22/19 21:06 promethazine [From Phenergan] Allergy Unknown Verified 02/22/19 21:06 Home Medications Medication Instructions Recorded Confirmed Last Taken Type Duloxetine HCl 60 mg PO DAILY 02/23/19 02/23/19 Unknown History Furosemide [Lasix TAB] 40 mg PO DAILY 02/23/19 02/23/19 Unknown History Ibuprofen [Motrin 600 MG tab] 600 mg PO Q6H PRN tablet 02/26/19 Unknown Rx Warfarin [Coumadin] 1 mg PO DAILY@1700 tablet 02/26/19 Unknown Rx dilTIAZem [CarDIZEM] 30 mg PO Q8H #30 tablet 02/26/19 Unknown Rx oxyCODONE /ACETAMINOPHEN [Percocet 1 tab PO Q8H PRN #20 tablet 02/26/19 Unknown Rx 5/325] Active Meds: Active Medications Acetaminophen (Tylenol) 650 mg PO Q4H PRN PRN Reason: Pain MILD(1-3)/Fever >100.5/DUPREE Enoxaparin Sodium (Lovenox) 40 mg SUB-Q QDAY JESSICA Last Admin: 03/16/19 09:19 Dose: 40 mg Documented by: Sodium Chloride (Nacl 0.9% 1000 Ml) 1,000 mls @ 50 mls/hr IV DIRECT JESSICA Morphine Sulfate (Morphine) 1 mg IV Q4H PRN PRN Reason: Pain, Moderate (4-6) Last Admin: 03/16/19 09:19 Dose: 1 mg Documented by: Ondansetron HCl (Zofran) 4 mg IV Q8H PRN PRN Reason: Nausea And Vomiting Sodium Chloride (Sodium Chloride Flush Syringe 10 Ml) 10 ml IV BID JESSICA Sodium Chloride (Sodium Chloride Flush Syringe 10 Ml) 10 ml IV PRN PRN PRN Reason: LINE FLUSH Physical Examination Vital Signs Pulse Ox 99 03/15/19 23:59 General appearance: no acute distress, cachectic HEENT: Positive: PERRL Cardiac: Positive: irregularly irregular Lungs: Positive: Decreased Breath Sounds Neuro: Positive: Weakness Extremities: Absent: edema Results 03/16/19 00:21 03/16/19 00:21 Cardiac Enzymes 03/16/19 Range/Units 00:21 AST 41 H (5-40) units/L Coagulation 03/16/19 Range/Units 06:33 PT 23.1 H (12.2-14.9) Sec. INR 2.10 H (0.87-1.13) APTT 35.0 (24.2-36.6) Sec. CBC 03/16/19 Range/Units 00:21 WBC 4.8 (4.5-11.0) K/mm3 RBC 2.65 L (3.65-5.03) M/mm3 Hgb 9.0 L (10.1-14.3) gm/dl Hct 25.3 L (30.3-42.9) % Plt Count 283 (140-440) K/mm3 Comprehensive Metabolic Panel 03/16/19 Range/Units 00:21 Sodium 139 (137-145) mmol/L Potassium 4.0 (3.6-5.0) mmol/L Chloride 94.4 L (98-107) mmol/L Carbon Dioxide 35 H (22-30) mmol/L BUN 31 H (7-17) mg/dL Creatinine 0.4 L (0.7-1.2) mg/dL Glucose 97 (65-100) mg/dL Calcium 9.1 (8.4-10.2) mg/dL AST 41 H (5-40) units/L ALT 48 (7-56) units/L Alkaline Phosphatase 224 H (35-129) units/L Total Protein 5.6 L (6.3-8.2) g/dL Albumin 3.1 L (3.9-5) g/dL Assessment and Plan Left proximal femur fracture Cardiac risk assessment Hx coronary artery disease with single vessel bypass grafting Hx of mitral valve repair Hx of tricuspid valve repair Hx of Ischemic Cardiomyopathy Persistent atrial fibrillation with prior MAZE procedure on warfarin for oral anticoagulation. Hx of sick sinus syndrome s/p PPM We will obtain an 12 lead ECG.
[2019-03-16] MEDS ORDERED: VERSED ONE (12:00)
[2019-03-16] MEDS ORDERED: Vasostrict ONE (12:25)
[2019-03-16] MEDS ORDERED: MARCAINE 0.5% INFILTRATI ONE ×2 (12:26→13:51)
[2019-03-16] MEDS ORDERED: MORPHINE ONE (12:27)
[2019-03-16] MEDS ORDERED: TORADOL ONE (12:27)
[2019-03-16] MEDS: NACL 0.9% 1000 ML 1,000 ML IV SCH (12:30)
[2019-03-16] MEDS ORDERED: MORPHINE IM ONE (13:51)
[2019-03-16] MEDS ORDERED: NACL 0.9% IV ONE (13:51)
[2019-03-16] MEDS ORDERED: NACL 0.9% IR ONE (13:51)
[2019-03-16] MEDS ORDERED: TORADOL IV ONE (13:51)
[2019-03-16] MEDS ORDERED: NACL 0.9% 100 ML ONE (14:00)
[2019-03-16] MEDS ORDERED: MORPHINE IV PRN (14:36)
--- NOTE | 2019-03-16 14:36 | Procedure Note ---
Date of procedure: 03/16/19 Pre-op diagnosis: left intertrochanteric hip fracture Post-op diagnosis: same Procedure: Closed reduction insertion of intramedullary nail left femur Procedure The patient was brought to the OR on the hospital bed she was following induction and intubation she was placed onto the [place] Table supine the legs were placed in longitudinal traction Z C-arm fluoroscope was brought in and the hip was reduced in both the AP and lateral planes. Next the left hip was prepped and draped in the usual sterile manner a stab wound was made posterior and superior to the greater trochanter this is carried down sharply through skin and fascia using a Pena elevator the soft tissues were split down to the tip of the greater trochanter A large awl was used to enter the proximal medullary canal this was followed by placement of the guidewire again under C-arm visualization the tip of the guidewire was seen in the distal femur next the measurements were obtained a 11 x 380 intramedullary nail was selected this was followed by reaming up to a 12-1/2 mm diameter following this the intramedullary nail was inserted and a antegrade fashion down the proximal canal into the distal femur next the targeting device for the helical blade was placed and the stab wound was made along the lateral border of the thigh again under C-arm visualization a guidewire was inserted into the femoral neck again measuring this delay a 90 mm helical blade was chosen the forearm or near cortex was drilled followed by insertion of the proximal helical blade next the locking screw proximally was engaged again under C-arm direction AP and lateral views were obtained showing good reduction at the fracture and placement of the hardware following this a wound was copiously irrigated and was closed in a standard routine fashion and the patient tolerated the procedure there were no complications and he was sent to postanesthesia recovery in stable condition Anesthesia: ELIOA Surgeon: JAIRO LOVE Registrar Assistant: NITHYA NO Estimated blood loss: 50-100ml Pathology: none Condition: stable Disposition: PACU
[2019-03-16] MEDS ORDERED: SODIUM CHLORIDE FLUSH SYRINGE 10 ML IV NR (15:00)
--- NOTE | 2019-03-16 15:13 | Progress Note ---
Assessment and Plan Assessment and plan: 68 -year-old woman with a history of hypertension, coronary artery disease, A. fib, depression was brought to the for evaluation of left hip pain. She stated that she said the left hip pain for 3 weeks, [facility] which shows fracture, she was sent here for further evaluation Acute left intertrochanteric fracture Hypertension Coronary artery disease-POA A. fib-POA Depression-POA Anemia-POA Plan Continue supportive care Patient for surgery today Cardiac clearance noted, Hold warfarin and resume after surgery when feasible Nothing by mouth, IV fluids, consult orthopedic Continue appropriate outpatient medications DVT prophylaxis Discussed with family. Patient came from long term History Interval history: Patient seen and examined. for surgery today Hospitalist Physical - Physical exam Narrative exam: General Apperance: The patient lying in bed, breathing comfortable HEENT: Normocephalic, atraumatic. Pupils equally round and reactive to light, EOMI, no sclericterus or JVD or thyromegaly or nodule. , no carotid bruit, muco us membranes moist, no exudate or erythema Heart: S1-S2, regular is rhythm Lungs: Clear to auscultation bilaterally, breathing comfortable Abdomen: Positive bowel sounds, soft, nontender, nondistended, no organomegaly Extremities: No edema cyanosis clubbing, shortened and rotated Skin: no rash, nodule, warm and dry Neuro: cranial nerves 2-12 intact, speech is fluent, motor/sensory intact - Constitutional Vitals: Temp Pulse Resp BP Pulse Ox 98.5 F 67 16 116/65 96 03/16/19 11:45 03/16/19 11:45 03/16/19 11:45 03/16/19 11:45 03/16/19 11:45 General appearance: Present: no acute distress, cachectic Results - Labs CBC & Chem 7: 03/17/19 04:09 03/17/19 04:09 Labs: Laboratory Last Values WBC 4.8 K/mm3 (4.5-11.0) 03/16/19 00:21 RBC 2.65 M/mm3 (3.65-5.03) L 03/16/19 00:21 Hgb 9.0 gm/dl (10.1-14.3) L 03/16/19 00:21 Hct 25.3 % (30.3-42.9) L 03/16/19 00:21 MCV 95 fl (79-97) 03/16/19 00:21 MCH 34 pg (28-32) H 03/16/19 00:21 MCHC 36 % (30-34) H 03/16/19 00:21 RDW 19.1 % (13.2-15.2) H 03/16/19 00:21 Plt Count 283 K/mm3 (140-440) 03/16/19 00:21 PT 23.1 Sec. (12.2-14.9) H 03/16/19 06:33 INR 2.10 (0.87-1.13) H 03/16/19 06:33 APTT 35.0 Sec. (24.2-36.6) 03/16/19 06:33 Sodium 139 mmol/L (137-145) 03/16/19 00:21 Potassium 4.0 mmol/L (3.6-5.0) 03/16/19 00:21 Chloride 94.4 mmol/L (98-107) L 03/16/19 00:21 Carbon Dioxide 35 mmol/L (22-30) H 03/16/19 00:21 14 mmol/L 03/16/19 00:21 BUN 31 mg/dL (7-17) H 03/16/19 00:21 0.4 mg/dL (0.7-1.2) L 03/16/19 00:21 Estimated GFR > 60 ml/min 03/16/19 00:21 78 % 03/16/19 00:21 Glucose 97 mg/dL (65-100) 03/16/19 00:21 Calcium 9.1 mg/dL (8.4-10.2) 03/16/19 00:21 0.20 mg/dL (0.1-1.2) 03/16/19 00:21 AST 41 units/L (5-40) H 03/16/19 00:21 ALT 48 units/L (7-56) 03/16/19 00:21 224 units/L (35-129) H 03/16/19 00:21 5.6 g/dL (6.3-8.2) L 03/16/19 00:21 3.1 g/dL (3.9-5) L 03/16/19 00:21 1.2 % 03/16/19 00:21 Blood Type O NEGATIVE 03/16/19 12:10 Antibody Screen Negative 03/16/19 12:10 Active Medications - Current Medications Current Medications: Generic Name Dose Route Start Last Admin Trade Name Ilene PRN Reason Stop Dose Admin Acetaminophen 650 mg 03/16/19 01:54 Tylenol PO Q4H PRN Pain MILD(1-3)/Fever >100.5/DUPREE Acetaminophen/Hydrocodone Bitart 1 each 03/16/19 14:36 [place] 5/325 PO Q6H PRN Pain, Moderate (4-6) Enoxaparin Sodium 40 mg 03/16/19 10:00 03/16/19 09:19 Lovenox SUB-Q 40 mg QDAY JESSICA Administration Sodium Chloride 1,000 mls @ 50 mls/hr 03/16/19 02:00 03/16/19 12:30 Nacl 0.9% 1000 Ml IV 50 mls/hr DIRECT JESSICA Administration Morphine Sulfate 1 mg 03/16/19 01:54 03/16/19 09:19 Morphine IV 1 mg Q4H PRN Administration Pain, Moderate (4-6) Morphine Sulfate 4 mg 03/16/19 14:36 Morphine IV Q4H PRN Pain , Severe (7-10) Ondansetron HCl 4 mg 03/16/19 01:54 Zofran IV Q8H PRN Nausea And Vomiting Sodium Chloride 10 ml 03/16/19 10:00 Sodium Chloride Flush Syringe 10 Ml IV BID JESSICA Sodium Chloride 10 ml 03/16/19 01:54 Sodium Chloride Flush Syringe 10 Ml IV PRN PRN LINE FLUSH Sodium Chloride 10 ml 03/16/19 15:00 Sodium Chloride Flush Syringe 10 Ml IV 03/26/19 23:59 PRN NR
--- NOTE | 2019-03-16 15:45 | XRay Report ---
INTRAOPERATIVE LEFT FEMUR RADIOGRAPHS INDICATION: Left femur fracture, nailing. COMPARISON: 12:29 AM earlier today. IMAGES/CINE CLIPS: 4 FINDINGS: Intraoperative fluoroscopic guidance provided. Images demonstrate various stages of left Zickel nail placement. CONCLUSION: Intraoperative fluoroscopic guidance provided, as described. Thank you for the opportunity to participate in this patient's care.
[2019-03-16] MEDS: SODIUM CHLORIDE FLUSH SYRINGE 10 ML IV SCH (21:29)
[2019-03-16] MEDS ORDERED: NACL 0.9% 250ML 250 ML IV ONE (22:36)
[2019-03-16 23:20] LABS: Hemoglobin 6.3 gm/dl (10.1-14.3)
[2019-03-17] MEDS ORDERED: NACL 0.9% 500 ML 500 ML IV ONE ×3 (00:23→11:00)
[2019-03-17] MEDS: SODIUM CHLORIDE FLUSH SYRINGE 10 ML IV SCH ×2 (03:04→16:08)
[2019-03-17 05:28] LABS: Basophils % (Auto) 0.6 % (0.0-1.8); Lymphocytes # (Auto) 1.1 K/mm3 (1.2-5.4); Lymphocytes % (Auto) 23.4 % (13.4-35.0); Mean Corpuscular HGB Conc 33 % (30-34); Mean Corpuscular Volume 97 fl (79-97); Monocytes # (Auto) 0.5 K/mm3 (0.0-0.8); Monocytes % (Auto) 10.6 % (0.0-7.3); Platelet Count 229 K/mm3 (140-440); Red Blood Count 1.83 M/mm3 (3.65-5.03)
[2019-03-17 05:47] LABS: BUN/Creatinine Ratio 45; Blood Urea Nitrogen 18 mg/dL (7-17); Calcium 8.2 mg/dL (8.4-10.2); Hemolysis Index 4
[2019-03-17 05:59] LABS: Hemoglobin 5.9 gm/dl (10.1-14.3)
[2019-03-17 06:00] LABS: Hematocrit 17.8 % (30.3-42.9)
[2019-03-17] MEDS: NORCO 5/325 PO PRN ×3 (06:38→20:50)
--- NOTE | 2019-03-17 08:54 | Progress Note ---
Assessment and Plan Left proximal femur fracture s/p closed reduction Hx coronary artery disease with single vessel bypass grafting to the diagonal artery Hx of mitral valve repair Hx of tricuspid valve repair Hx of Ischemic Cardiomyopathy - compensated Persistent atrial fibrillation with prior MAZE procedure on warfarin for oral anticoagulation. Hx of sick sinus syndrome s/p PPM Acute blood loss anemia postoperatively Recommendations: Transfuse to keep Hb > 7 Resume low dose metoprolol at 12.5 mg bid with holding parameters (patient was on metoprolol 50 mg in am and 25 mg in pm as outpatient) Subjective Date of service: 03/17/19 Principal diagnosis: Hip fracture Interval history: s/p close reduction of hip fracture noted drop in H/H post op Patient denies chest pain or shortness of breath She complaints of uncontrolled surgical pain Objective Vital Signs Temp Pulse Resp BP BP Pulse Ox 03/17/19 08:15 98.1 F 74 17 108/55 98 03/17/19 07:45 98.0 F 74 17 107/51 98 03/17/19 07:15 98.4 F 74 18 101/50 99 03/17/19 06:45 98.4 F 71 18 100/48 03/17/19 06:38 18 03/17/19 06:30 98.4 F 78 18 100/54 03/17/19 03:00 20 03/16/19 23:40 66 100 03/16/19 23:39 98.2 F 65 18 82/46 100 03/16/19 22:56 90/50 03/16/19 22:45 81/43 03/16/19 22:42 85/41 03/16/19 22:00 100 03/16/19 21:37 98.3 F 70 18 77/38 100 03/16/19 21:27 92/45 03/16/19 20:57 85/45 03/16/19 20:42 20 82/47 03/16/19 20:33 74 100 03/16/19 15:43 97.6 F 69 18 99/54 97 03/16/19 11:45 98.5 F 67 16 116/65 96 03/16/19 11:35 98.5 F 67 16 116/65 96 03/16/19 08:58 96 - Physical Examination HEENT: Positive: PERRL Neck: Positive: neck supple Cardiac: Positive: Reg Rate and Rhythm Lungs: Positive: Normal Exam Neuro: Positive: Weakness Extremities: Absent: edema - Labs and Meds CBC 03/16/19 03/17/19 Range/Units 23:05 04:09 WBC 4.8 (4.5-11.0) K/mm3 RBC 1.83 L (3.65-5.03) M/mm3 Hgb 6.3 L 5.9 L* (10.1-14.3) gm/dl Hct 19.0 L* D 17.8 L* (30.3-42.9) % Plt Count 229 (140-440) K/mm3 Lymph # 1.1 L (1.2-5.4) K/mm3 [place] # 0.5 (0.0-0.8) K/mm3 Eos # 0.0 (0.0-0.4) K/mm3 Baso # 0.0 (0.0-0.1) K/mm3 Comprehensive Metabolic Panel 03/17/19 Range/Units 04:09 Sodium 139 (137-145) mmol/L Potassium 4.5 (3.6-5.0) mmol/L Chloride 98.6 (98-107) mmol/L Carbon Dioxide 34 H (22-30) mmol/L BUN 18 H (7-17) mg/dL Creatinine 0.4 L (0.7-1.2) mg/dL Glucose 116 H (65-100) mg/dL Calcium 8.2 L (8.4-10.2) mg/dL
--- NOTE | 2019-03-17 09:42 | Progress Note ---
Assessment and Plan Assessment and plan: 68 -year-old woman with a history of hypertension, coronary artery disease, A. fib, depression was brought to the for evaluation of left hip pain. She stated that she said the left hip pain for 3 weeks, x-ray was done at the assisted which shows fracture, she was sent here for further evaluation Acute left intertrochanteric fracture POD 1 Acute Blood loss Anemia Hypertension Coronary artery disease-POA A. fib-POA S/P MAZE procedure Depression-POA Anemia-POA Hx of MITRAL VALVE REPAIR HX OF TRICUSPID VALVE REMAIR HX OF ISCHEMIC CARIOMYPATHY hx of sick sinus syndrome s/p PPM Plan Continue supportive care Give additional unit of PRBC, For total of 2 units Monitor H/H IN AM PT/OT when ok with surgery BB low dose noted as started by cardiology S/P CLOSE REDUCTION with insertion of intermedullary nail left femure Cardiac clearance noted, Hold warfarin and resume after surgery when feasible ok to eat Continue appropriate outpatient medications DVT prophylaxis Discussed with family. Patient came from care home The high probability of a clinically significant, sudden or life threatening deterioration of the [hematology] system(s) required my full and direct a ttention, intervention and personal management. The aggregate critical care time was [35] minutes. This time is in addition to time spent performing reported procedures but includes the following: [x] Data Review and interpretation [x] Patient assessment and monitoring of vital signs [x] Documentation [x] Medication orders and management History Interval history: Patient seen and examined. Pain at surgical site, 6/10. no overt drainage noted Hospitalist Physical - Physical exam Narrative exam: General Apperance: The patient lying in bed, breathing comfortable HEENT: Normocephalic, atraumatic. Pupils equally round and reactive to light, EOMI, no sclericterus or JVD or thyromegaly or nodule. 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 Skin: no rash, nodule, warm and dry Neuro: cranial nerves 2-12 intact, speech is fluent, motor/sensory intact - Constitutional Vitals: Temp Pulse Resp BP Pulse Ox 98.0 F 87 17 97/43 99 03/17/19 09:15 03/17/19 09:15 03/17/19 09:15 03/17/19 09:15 03/17/19 09:15 General appearance: Present: no acute distress, cachectic Results - Labs CBC & Chem 7: 03/17/19 20:28 03/17/19 04:09 Labs: Laboratory Last Values WBC 4.8 K/mm3 (4.5-11.0) 03/17/19 04:09 RBC 1.83 M/mm3 (3.65-5.03) L 03/17/19 04:09 Hgb 5.9 gm/dl (10.1-14.3) L* 03/17/19 04:09 Hct 17.8 % (30.3-42.9) L* 03/17/19 04:09 MCV 97 fl (79-97) 03/17/19 04:09 MCH 32 pg (28-32) 03/17/19 04:09 MCHC 33 % (30-34) 03/17/19 04:09 RDW 19.0 % (13.2-15.2) H 03/17/19 04:09 Plt Count 229 K/mm3 (140-440) 03/17/19 04:09 Lymph % (Auto) 23.4 % (13.4-35.0) 03/17/19 04:09 [place] % (Auto) 10.6 % (0.0-7.3) H 03/17/19 04:09 Eos % (Auto) 1.0 % (0.0-4.3) 03/17/19 04:09 Baso % (Auto) 0.6 % (0.0-1.8) 03/17/19 04:09 Lymph # 1.1 K/mm3 (1.2-5.4) L 03/17/19 04:09 [place] # 0.5 K/mm3 (0.0-0.8) 03/17/19 04:09 Eos # 0.0 K/mm3 (0.0-0.4) 03/17/19 04:09 Baso # 0.0 K/mm3 (0.0-0.1) 03/17/19 04:09 Seg Neutrophils % 64.4 % (40.0-70.0) 03/17/19 04:09 Seg Neutrophils # 3.1 K/mm3 (1.8-7.7) 03/17/19 04:09 PT 23.1 Sec. (12.2-14.9) H 03/16/19 06:33 INR 2.10 (0.87-1.13) H 03/16/19 06:33 APTT 35.0 Sec. (24.2-36.6) 03/16/19 06:33 Sodium 139 mmol/L (137-145) 03/17/19 04:09 Potassium 4.5 mmol/L (3.6-5.0) 03/17/19 04:09 Chloride 98.6 mmol/L (98-107) 03/17/19 04:09 Carbon Dioxide 34 mmol/L (22-30) H 03/17/19 04:09 11 mmol/L 03/17/19 04:09 BUN 18 mg/dL (7-17) H 03/17/19 04:09 0.4 mg/dL (0.7-1.2) L 03/17/19 04:09 Estimated GFR > 60 ml/min 03/17/19 04:09 45 % 03/17/19 04:09 Glucose 116 mg/dL (65-100) H 03/17/19 04:09 Calcium 8.2 mg/dL (8.4-10.2) L 03/17/19 04:09 0.20 mg/dL (0.1-1.2) 03/16/19 00:21 AST 41 units/L (5-40) H 03/16/19 00:21 ALT 48 units/L (7-56) 03/16/19 00:21 224 units/L (35-129) H 03/16/19 00:21 5.6 g/dL (6.3-8.2) L 03/16/19 00:21 3.1 g/dL (3.9-5) L 03/16/19 00:21 1.2 % 03/16/19 00:21 Blood Type O NEGATIVE 03/16/19 12:10 Antibody Screen Negative 03/16/19 12:10 Crossmatch See Detail 03/16/19 12:10 Active Medications - Current Medications Current Medications: Generic Name Dose Route Start Last Admin Trade Name Freq PRN Reason Stop Dose Admin Acetaminophen 650 mg 03/16/19 01:54 Tylenol PO Q4H PRN Pain MILD(1-3)/Fever >100.5/DUPREE Acetaminophen/Hydrocodone Bitart 1 each 03/16/19 14:36 03/17/19 06:38 [place] 5/325 PO 1 each Q6H PRN Administration Pain, Moderate (4-6) Enoxaparin Sodium 40 mg 03/16/19 10:00 03/16/19 09:19 Lovenox SUB-Q 40 mg QDAY JESSICA Administration Sodium Chloride 1,000 mls @ 50 mls/hr 03/16/19 02:00 03/16/19 12:30 Nacl 0.9% 1000 Ml IV 50 mls/hr DIRECT JESSICA Administration Sodium Chloride 500 mls @ 0 mls/hr 03/17/19 09:37 Nacl 0.9% 500 Ml IV 03/17/19 09:38 ONCE ONE As Directed Metoprolol Tartrate 12.5 mg 03/17/19 10:00 Lopressor PO BID JESSICA Morphine Sulfate 1 mg 03/16/19 01:54 03/16/19 09:19 Morphine IV 1 mg Q4H PRN Administration Pain, Moderate (4-6) Morphine Sulfate 4 mg 03/16/19 14:36 03/16/19 16:40 Morphine IV 4 mg Q4H PRN Administration Pain , Severe (7-10) Ondansetron HCl 4 mg 03/16/19 01:54 Zofran IV Q8H PRN Nausea And Vomiting Sodium Chloride 10 ml 03/16/19 10:00 03/17/19 03:04 Sodium Chloride Flush Syringe 10 Ml IV Not Given BID JESSICA Sodium Chloride 10 ml 03/16/19 01:54 Sodium Chloride Flush Syringe 10 Ml IV PRN PRN LINE FLUSH Sodium Chloride 10 ml 03/16/19 15:00 Sodium Chloride Flush Syringe 10 Ml IV 03/26/19 23:59 PRN NR
[2019-03-17] MEDS: LOPRESSOR PO SCH ×2 (10:07→22:55)
[2019-03-17] MEDS ORDERED: ULTRAM PO ONE (10:09)
[2019-03-17] MEDS: LOVENOX SUB-Q SCH (10:43)
[2019-03-17 12:20] LABS: Hematocrit 20.3 % (30.3-42.9); Hemoglobin 6.9 gm/dl (10.1-14.3)
[2019-03-17] MEDS: NACL 0.9% 1000 ML 1,000 ML IV SCH ×2 (14:01→17:29)
[2019-03-17 20:45] LABS: Hematocrit 22.7 % (30.3-42.9); Hemoglobin 7.7 gm/dl (10.1-14.3)
[2019-03-18] MEDS: SODIUM CHLORIDE FLUSH SYRINGE 10 ML IV SCH ×3 (00:31→21:10)
[2019-03-18] MEDS: NORCO 5/325 PO PRN ×2 (02:45→08:39)
[2019-03-18] MEDS: LOPRESSOR PO SCH ×3 (08:40→21:11)
[2019-03-18] MEDS: LOVENOX SUB-Q SCH ×2 (08:41→13:32)
--- NOTE | 2019-03-18 08:41 | Progress Note ---
Assessment and Plan Assessment and plan: 68 -year-old woman with a history of hypertension, coronary artery disease, A. fib, depression was brought to the for evaluation of left hip pain. She stated that she said the left hip pain for 3 weeks, [facility] which shows fracture, she was sent here for further evaluation Acute left intertrochanteric fracture POD 2 Acute Blood loss Anemia Hypertension Coronary artery disease-POA A. fib-POA S/P MAZE procedure Depression-POA Anemia-POA Hx of MITRAL VALVE REPAIR HX OF TRICUSPID VALVE REMAIR HX OF ISCHEMIC CARIOMYPATHY hx of sick sinus syndrome s/p PPM Plan Continue supportive care S/P 2 units prbc BP better, continue to adjust pain control Monitor H/H IN AM PT/OT BB low dose noted as started by cardiology S/P CLOSE REDUCTION with insertion of intermedullary nail left femur Hold warfarin and resume after surgery when feasible Continue appropriate outpatient medications DVT prophylaxis Discussed with family. Patient came from long-term History Interval history: Patient seen and examined. Pain at surgical site, 01/26. Asking for increased pain medication dose. no overt drainage noted Hospitalist Physical - Physical exam Narrative exam: General Apperance: The patient lying in bed, breathing comfortable HEENT: Normocephalic, atraumatic. Pupils equally round and reactive to light, EOMI, no sclericterus or JVD or thyromegaly or nodule. 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, no drainage noted Skin: no rash, nodule, warm and dry Neuro: cranial nerves 2-12 intact, speech is fluent, motor/sensory intact - Constitutional Vitals: Temp Pulse Resp BP Pulse Ox 99.1 F 110 H 18 134/75 97 03/18/19 07:58 03/18/19 07:58 03/18/19 08:27 03/18/19 07:58 03/18/19 07:58 General appearance: Present: no acute distress, cachectic Results - Labs CBC & Chem 7: 03/18/19 09:50 03/18/19 09:50 Labs: Laboratory Last Values WBC 4.8 K/mm3 (4.5-11.0) 03/17/19 04:09 RBC 1.83 M/mm3 (3.65-5.03) L 03/17/19 04:09 Hgb 7.7 gm/dl (10.1-14.3) L 03/17/19 20:28 Hct 22.7 % (30.3-42.9) L 03/17/19 20:28 MCV 97 fl (79-97) 03/17/19 04:09 MCH 32 pg (28-32) 03/17/19 04:09 MCHC 33 % (30-34) 03/17/19 04:09 RDW 19.0 % (13.2-15.2) H 03/17/19 04:09 Plt Count 229 K/mm3 (140-440) 03/17/19 04:09 Lymph % (Auto) 23.4 % (13.4-35.0) 03/17/19 04:09 [place] % (Auto) 10.6 % (0.0-7.3) H 03/17/19 04:09 Eos % (Auto) 1.0 % (0.0-4.3) 03/17/19 04:09 Baso % (Auto) 0.6 % (0.0-1.8) 03/17/19 04:09 Lymph # 1.1 K/mm3 (1.2-5.4) L 03/17/19 04:09 [place] # 0.5 K/mm3 (0.0-0.8) 03/17/19 04:09 Eos # 0.0 K/mm3 (0.0-0.4) 03/17/19 04:09 Baso # 0.0 K/mm3 (0.0-0.1) 03/17/19 04:09 Seg Neutrophils % 64.4 % (40.0-70.0) 03/17/19 04:09 Seg Neutrophils # 3.1 K/mm3 (1.8-7.7) 03/17/19 04:09 PT 23.1 Sec. (12.2-14.9) H 03/16/19 06:33 INR 2.10 (0.87-1.13) H 03/16/19 06:33 APTT 35.0 Sec. (24.2-36.6) 03/16/19 06:33 Sodium 139 mmol/L (137-145) 03/17/19 04:09 Potassium 4.5 mmol/L (3.6-5.0) 03/17/19 04:09 Chloride 98.6 mmol/L (98-107) 03/17/19 04:09 Carbon Dioxide 34 mmol/L (22-30) H 03/17/19 04:09 11 mmol/L 03/17/19 04:09 BUN 18 mg/dL (7-17) H 03/17/19 04:09 0.4 mg/dL (0.7-1.2) L 03/17/19 04:09 Estimated GFR > 60 ml/min 03/17/19 04:09 45 % 03/17/19 04:09 Glucose 116 mg/dL (65-100) H 03/17/19 04:09 Calcium 8.2 mg/dL (8.4-10.2) L 03/17/19 04:09 0.20 mg/dL (0.1-1.2) 03/16/19 00:21 AST 41 units/L (5-40) H 03/16/19 00:21 ALT 48 units/L (7-56) 03/16/19 00:21 224 units/L (35-129) H 03/16/19 00:21 5.6 g/dL (6.3-8.2) L 03/16/19 00:21 3.1 g/dL (3.9-5) L 03/16/19 00:21 1.2 % 03/16/19 00:21 Blood Type O NEGATIVE 03/16/19 12:10 Antibody Screen Negative 03/16/19 12:10 Crossmatch See Detail 03/16/19 12:10 Active Medications - Current Medications Current Medications: Generic Name Dose Route Start Last Admin Trade Name Freq PRN Reason Stop Dose Admin Acetaminophen 650 mg 03/16/19 01:54 03/18/19 00:22 Tylenol PO 650 mg Q4H PRN Administration Pain MILD(1-3)/Fever >100.5/DUPREE Acetaminophen/Hydrocodone Bitart 1 each 03/16/19 14:36 03/18/19 02:45 [place] 5/325 PO 1 each Q6H PRN Administration Pain, Moderate (4-6) Enoxaparin Sodium 40 mg 03/16/19 10:00 03/17/19 10:43 Lovenox SUB-Q 40 mg QDAY JESSICA Administration Sodium Chloride 1,000 mls @ 50 mls/hr 03/16/19 02:00 03/17/19 17:29 Nacl 0.9% 1000 Ml IV 50 mls/hr DIRECT JESISCA Administration Metoprolol Tartrate 12.5 mg 03/17/19 10:00 03/17/19 22:55 Lopressor PO 12.5 mg BID JESSICA Administration Morphine Sulfate 1 mg 03/16/19 01:54 03/16/19 09:19 Morphine IV 1 mg Q4H PRN Administration Pain, Moderate (4-6) Ondansetron HCl 4 mg 03/16/19 01:54 Zofran IV Q8H PRN Nausea And Vomiting Sodium Chloride 10 ml 03/16/19 10:00 03/18/19 00:31 Sodium Chloride Flush Syringe 10 Ml IV 10 ml BID JESSICA Administration Sodium Chloride 10 ml 03/16/19 01:54 Sodium Chloride Flush Syringe 10 Ml IV PRN PRN LINE FLUSH Sodium Chloride 10 ml 03/16/19 15:00 Sodium Chloride Flush Syringe 10 Ml IV 03/26/19 23:59 PRN NR
--- NOTE | 2019-03-18 10:02 | Progress Note ---
Assessment and Plan Left proximal femur fracture s/p closed reduction Hx coronary artery disease with single vessel bypass grafting to the diagonal artery Hx of mitral valve repair Hx of tricuspid valve repair Hx of Ischemic Cardiomyopathy - compensated Persistent atrial fibrillation with prior MAZE procedure on warfarin for oral anticoagulation. Hx of sick sinus syndrome s/p PPM Acute blood loss anemia postoperatively Recommendations: Transfuse to keep Hb > 7 Continue low dose metoprolol at 12.5 mg bid with holding parameters (patient was on metoprolol 50 mg in am and 25 mg in pm as outpatient) Discontinue IVF (patient appears mildly volume overloaded on exam) Subjective Date of service: 03/18/19 Principal diagnosis: Hip fracture Interval history: Patient denies chest pain or shortness of breath Objective Vital Signs Temp Pulse Resp BP BP Pulse Ox 03/18/19 08:40 110 H 134/75 03/18/19 08:27 18 03/18/19 07:58 99.1 F 110 H 134/75 97 03/18/19 04:36 97.6 F 79 17 111/53 95 03/18/19 02:45 18 03/18/19 01:22 17 03/18/19 00:28 98.7 F 81 18 127/50 93 03/17/19 22:55 74 106/64 03/17/19 20:50 17 03/17/19 20:00 16 96 03/17/19 19:28 99.2 F 88 18 109/60 95 03/17/19 19:00 96 03/17/19 17:10 98.7 F 96 H 18 110/60 100 03/17/19 16:40 98.2 F 92 H 18 107/55 98 03/17/19 16:10 98.4 F 85 18 113/60 98 03/17/19 15:45 18 03/17/19 15:40 98.9 F 91 H 18 104/58 97 03/17/19 15:19 99.8 F H 90 18 100/56 98 03/17/19 15:10 99.8 F H 93 H 18 100/56 99 03/17/19 14:45 17 03/17/19 14:40 98.3 F 83 17 106/56 99 03/17/19 14:26 99.1 F 84 17 86/45 97 03/17/19 14:25 98.9 F 86 17 104/49 99 03/17/19 14:07 99.1 F 84 17 86/45 97 03/17/19 13:15 99.5 F 100 H 18 105/50 96 03/17/19 11:42 18 03/17/19 10:42 17 - Physical Examination HEENT: Positive: PERRL Neck: Positive: neck supple, JVD/HJR Neuro: Positive: Weakness Extremities: Absent: edema - Labs and Meds CBC 03/17/19 03/17/19 Range/Units 11:22 20:28 Hgb 6.9 L 7.7 L (10.1-14.3) gm/dl Hct 20.3 L 22.7 L (30.3-42.9) %
--- NOTE | 2019-03-18 10:28 | Progress Note ---
Assessment and Plan s/p IM nail left hip/femur doing ok continue observation and rehab Subjective Date of service: 03/18/19 Principal diagnosis: Hip fracture Interval history: c/o left hip pain, otherwise ok Objective Vital signs: Vital Signs - 12hr 03/17/19 03/18/19 03/18/19 22:55 00:28 01:22 Temperature 98.7 F Pulse Rate 74 81 Respiratory 18 17 Rate Blood Pressure 106/64 Blood Pressure 127/50 [Left] O2 Sat by Pulse 93 Oximetry 03/18/19 03/18/19 03/18/19 02:45 04:36 07:58 Temperature 97.6 F 99.1 F Pulse Rate 79 110 H Respiratory 18 17 Rate Blood Pressure 111/53 134/75 Blood Pressure [Left] O2 Sat by Pulse 95 97 Oximetry 03/18/19 03/18/19 08:27 08:40 Temperature Pulse Rate 110 H Respiratory 18 Rate Blood Pressure 134/75 Blood Pressure [Left] O2 Sat by Pulse Oximetry Incision: clean and dry Weight bearing status: partial - Labs CBC & BMP: 03/17/19 20:28 03/17/19 04:09 Labs: Abnormal lab results 03/16/19 03/17/19 03/17/19 Range/Units 12:10 11:22 20:28 Hgb 6.9 L 7.7 L (10.1-14.3) gm/dl Hct 20.3 L 22.7 L (30.3-42.9) % Crossmatch See Detail
[2019-03-18 10:34] LABS: Hematocrit 22.1 % (30.3-42.9); Hemoglobin 7.6 gm/dl (10.1-14.3); Mean Corpuscular HGB Conc 34 % (30-34); Mean Corpuscular Volume 94 fl (79-97); Platelet Count 208 K/mm3 (140-440); Red Blood Count 2.36 M/mm3 (3.65-5.03); Red Cell Distribution Width 17.6 % (13.2-15.2)
[2019-03-18 10:51] LABS: BUN/Creatinine Ratio 37; Blood Urea Nitrogen 11 mg/dL (7-17); Calcium 8.2 mg/dL (8.4-10.2); Hemolysis Index 5
[2019-03-18] MEDS: MORPHINE IV PRN ×2 (11:51→16:39)
[2019-03-18] MEDS: NORCO 7.5/325 PO PRN ×2 (13:36→20:17)
[2019-03-19] MEDS: NORCO 7.5/325 PO PRN ×4 (02:28→21:27)
[2019-03-19 06:24] LABS: Hemoglobin 6.8 gm/dl (10.1-14.3)
[2019-03-19] MEDS: LOVENOX SUB-Q SCH ×2 (08:37→10:09)
[2019-03-19] MEDS: LOPRESSOR PO SCH ×3 (08:38→21:33)
--- NOTE | 2019-03-19 10:23 | Progress Note ---
Assessment and Plan Left proximal femur fracture s/p closed reduction Acute blood loss anemia postoperatively s/p transfusion of PRBCS Hx coronary artery disease with single vessel bypass grafting Hx of mitral valve repair Hx of tricuspid valve repair Hx of Ischemic Cardiomyopathy EF 35-40% by echo 02/2019 Persistent atrial fibrillation with prior MAZE procedure on warfarin for oral anticoagulation. warfarin on hold Hx of sick sinus syndrome s/p PPM Recommendations: Continue low dose metoprolol for persistent atrial fibrillation with holding pa rameters. Medical therapy for underlying coronary artery disease and ischemic cardiomyopathy as tolerated. Otherwise, conservative cardiac management. Subjective Date of service: 03/19/19 Principal diagnosis: Hip fracture Interval history: Patient has no cardiac complaints. Currently, receiving physical therapy. Objective Vital Signs Temp Pulse Resp BP BP Pulse Ox 03/19/19 09:37 18 03/19/19 08:38 106 H 111/73 03/19/19 08:37 18 03/19/19 07:47 98.6 F 106 H 18 111/73 94 03/19/19 07:36 94 03/19/19 03:52 97.5 F L 102 H 18 122/62 93 03/19/19 02:28 18 03/19/19 00:09 99.5 F 101 H 17 108/66 94 03/18/19 21:11 96 H 117/68 03/18/19 20:17 18 03/18/19 19:38 99.7 F H 96 H 17 117/68 96 03/18/19 17:46 99.3 F 82 18 113/61 96 03/18/19 12:42 99.1 F 76 16 114/59 97 - Physical Examination General: No Apparent Distress HEENT: Positive: PERRL Neck: Positive: trachea midline Cardiac: Positive: irregularly irregular Lungs: Positive: Decreased Breath Sounds Neuro: Positive: Weakness Extremities: Absent: edema - Labs and Meds CBC 03/18/19 03/19/19 Range/Units 09:50 06:03 WBC 7.3 (4.5-11.0) K/mm3 RBC 2.36 L (3.65-5.03) M/mm3 Hgb 7.6 L 6.8 L (10.1-14.3) gm/dl Hct 22.1 L 20.0 L (30.3-42.9) % Plt Count 208 (140-440) K/mm3 Comprehensive Metabolic Panel 03/18/19 Range/Units 09:50 Sodium 139 (137-145) mmol/L Potassium 3.6 (3.6-5.0) mmol/L Chloride 100.1 (98-107) mmol/L Carbon Dioxide 30 (22-30) mmol/L BUN 11 (7-17) mg/dL Creatinine 0.3 L (0.7-1.2) mg/dL Glucose 146 H (65-100) mg/dL Calcium 8.2 L (8.4-10.2) mg/dL
[2019-03-19] MEDS ORDERED: NACL 0.9% 500 ML 500 ML IV NR (11:13)
--- NOTE | 2019-03-19 13:09 | Progress Note ---
Assessment and Plan s/p IM nail left hip/femur doing ok continue observation and rehab Subjective Date of service: 03/19/19 Principal diagnosis: Hip fracture Interval history: doing better today, less pain now Objective Vital signs: Vital Signs - 12hr 03/19/19 03/19/19 03/19/19 02:28 03:52 07:36 Temperature 97.5 F L Pulse Rate 102 H Respiratory 18 18 Rate Blood Pressure 122/62 O2 Sat by Pulse 93 94 Oximetry 03/19/19 03/19/19 03/19/19 07:47 08:37 08:38 Temperature 98.6 F Pulse Rate 106 H 106 H Respiratory 18 18 Rate Blood Pressure 111/73 111/73 O2 Sat by Pulse 94 Oximetry 03/19/19 03/19/19 09:37 11:55 Temperature 97.9 F Pulse Rate 66 Respiratory 18 18 Rate Blood Pressure 90/49 O2 Sat by Pulse 99 Oximetry Incision: healing, clean and dry Weight bearing status: partial - Labs CBC & BMP: 03/19/19 06:03 03/18/19 09:50 Labs: Abnormal lab results 03/16/19 03/19/19 Range/Units 12:10 06:03 Hgb 6.8 L (10.1-14.3) gm/dl Hct 20.0 L (30.3-42.9) % Crossmatch See Detail
[2019-03-19 13:29] LABS: INR 1.15 (0.87-1.13)
--- NOTE | 2019-03-19 16:37 | Progress Note ---
Assessment and Plan Assessment and plan: 68 -year-old woman with a history of hypertension, coronary artery disease, A. fib, depression was brought to the for evaluation of left hip pain. She stated that she said the left hip pain for 3 weeks, x-ray was done at the assisted which shows fracture, she was sent here for further evaluation Acute left intertrochanteric fracture POD 3 Acute Blood loss Anemia Hypertension Coronary artery disease-POA A. fib-POA S/P MAZE procedure Depression-POA Anemia-POA Hx of MITRAL VALVE REPAIR HX OF TRICUSPID VALVE REMAIR HX OF ISCHEMIC CARIOMYPATHY hx of sick sinus syndrome s/p PPM Plan Continue supportive care Give additional ONE unit PRBC for total 3 units prbc BP better, continue to adjust pain control Monitor H/H IN AM PT/OT BB low dose noted as started by cardiology S/P CLOSE REDUCTION with insertion of intermedullary nail left femur Hold warfarin and resume after surgery when feasible Continue appropriate outpatient medications DVT prophylaxis Discussed with family. Patient came from detention History Interval history: Patient seen and examined. Pain at surgical site, 11/26. Asking NOT TO GO BACK TO [facility]. Nurse reports no gross bleeding noted on surgical site. Hospitalist Physical - Physical exam Narrative exam: General Apperance: The patient lying in bed, breathing comfortable HEENT: Normocephalic, atraumatic. Pupils equally round and reactive to light, EOMI, no sclericterus or JVD or thyromegaly or nodule. 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, no drainage noted Skin: no rash, nodule, warm and dry Neuro: cranial nerves 2-12 intact, speech is fluent, motor/sensory intact - Constitutional Vitals: Temp Pulse Resp BP Pulse Ox 98.3 F 69 19 95/54 98 03/19/19 16:29 03/19/19 16:29 03/19/19 16:29 03/19/19 16:29 03/19/19 16:29 General appearance: Present: no acute distress, cachectic Results - Labs CBC & Chem 7: 03/19/19 06:03 03/18/19 09:50 Labs: Laboratory Last Values WBC 7.3 K/mm3 (4.5-11.0) 03/18/19 09:50 RBC 2.36 M/mm3 (3.65-5.03) L 03/18/19 09:50 Hgb 6.8 gm/dl (10.1-14.3) L 03/19/19 06:03 Hct 20.0 % (30.3-42.9) L 03/19/19 06:03 MCV 94 fl (79-97) 03/18/19 09:50 MCH 32 pg (28-32) 03/18/19 09:50 MCHC 34 % (30-34) 03/18/19 09:50 RDW 17.6 % (13.2-15.2) H 03/18/19 09:50 Plt Count 208 K/mm3 (140-440) 03/18/19 09:50 Lymph % (Auto) 23.4 % (13.4-35.0) 03/17/19 04:09 [place] % (Auto) 10.6 % (0.0-7.3) H 03/17/19 04:09 Eos % (Auto) 1.0 % (0.0-4.3) 03/17/19 04:09 Baso % (Auto) 0.6 % (0.0-1.8) 03/17/19 04:09 Lymph # 1.1 K/mm3 (1.2-5.4) L 03/17/19 04:09 [place] # 0.5 K/mm3 (0.0-0.8) 03/17/19 04:09 Eos # 0.0 K/mm3 (0.0-0.4) 03/17/19 04:09 Baso # 0.0 K/mm3 (0.0-0.1) 03/17/19 04:09 Seg Neutrophils % 64.4 % (40.0-70.0) 03/17/19 04:09 Seg Neutrophils # 3.1 K/mm3 (1.8-7.7) 03/17/19 04:09 PT 14.4 Sec. (12.2-14.9) 03/19/19 12:42 INR 1.15 (0.87-1.13) H 03/19/19 12:42 APTT 35.0 Sec. (24.2-36.6) 03/16/19 06:33 Sodium 139 mmol/L (137-145) 03/18/19 09:50 Potassium 3.6 mmol/L (3.6-5.0) 03/18/19 09:50 Chloride 100.1 mmol/L (98-107) 03/18/19 09:50 Carbon Dioxide 30 mmol/L (22-30) 03/18/19 09:50 13 mmol/L 03/18/19 09:50 BUN 11 mg/dL (7-17) 03/18/19 09:50 0.3 mg/dL (0.7-1.2) L 03/18/19 09:50 Estimated GFR > 60 ml/min 03/18/19 09:50 37 % 03/18/19 09:50 Glucose 146 mg/dL (65-100) H 03/18/19 09:50 Calcium 8.2 mg/dL (8.4-10.2) L 03/18/19 09:50 0.20 mg/dL (0.1-1.2) 03/16/19 00:21 AST 41 units/L (5-40) H 03/16/19 00:21 ALT 48 units/L (7-56) 03/16/19 00:21 224 units/L (35-129) H 03/16/19 00:21 5.6 g/dL (6.3-8.2) L 03/16/19 00:21 3.1 g/dL (3.9-5) L 03/16/19 00:21 1.2 % 03/16/19 00:21 Blood Type O NEGATIVE 03/19/19 12:46 Antibody Screen Negative 03/19/19 12:46 Crossmatch See Detail 03/19/19 12:46 Active Medications - Current Medications Current Medications: Generic Name Dose Route Start Last Admin Trade Name Freq PRN Reason Stop Dose Admin Acetaminophen 650 mg 03/16/19 01:54 03/18/19 00:22 Tylenol PO 650 mg Q4H PRN Administration Pain MILD(1-3)/Fever >100.5/DUPREE Acetaminophen/Hydrocodone Bitart 1 each 03/18/19 11:09 03/19/19 14:53 [place] 7.5/325 PO 1 each Q6H PRN Administration Pain, Moderate (4-6) Enoxaparin Sodium 40 mg 03/16/19 10:00 03/19/19 10:09 Lovenox SUB-Q Not Given QDAY JESSICA Sodium Chloride 500 mls @ 0 mls/hr 03/19/19 11:13 Nacl 0.9% 500 Ml IV 03/19/19 23:59 ONCE NR As Directed Metoprolol Tartrate 12.5 mg 03/17/19 10:00 03/19/19 10:09 Lopressor PO Not Given BID JESSICA Morphine Sulfate 1 mg 03/16/19 01:54 03/18/19 16:39 Morphine IV 1 mg Q4H PRN Administration Pain, Moderate (4-6) Ondansetron HCl 4 mg 03/16/19 01:54 Zofran IV Q8H PRN Nausea And Vomiting Sodium Chloride 10 ml 03/16/19 10:00 03/18/19 21:10 Sodium Chloride Flush Syringe 10 Ml IV 10 ml BID JESSICA Administration Sodium Chloride 10 ml 03/16/19 01:54 03/19/19 08:44 Sodium Chloride Flush Syringe 10 Ml IV 10 ml PRN PRN Administration LINE FLUSH Sodium Chloride 10 ml 03/16/19 15:00 Sodium Chloride Flush Syringe 10 Ml IV 03/26/19 23:59 PRN NR
[2019-03-19 22:46] LABS: Hematocrit 23.2 % (30.3-42.9); Hemoglobin 8.1 gm/dl (10.1-14.3)
[2019-03-20] MEDS: NORCO 7.5/325 PO PRN ×3 (04:15→15:51)
[2019-03-20 04:34] LABS: Hematocrit 22.5 % (30.3-42.9); Hemoglobin 7.8 gm/dl (10.1-14.3); Mean Corpuscular HGB Conc 34 % (30-34); Mean Corpuscular Volume 92 fl (79-97); Platelet Count 227 K/mm3 (140-440); Red Blood Count 2.45 M/mm3 (3.65-5.03); Red Cell Distribution Width 18.2 % (13.2-15.2)
[2019-03-20 04:56] LABS: BUN/Creatinine Ratio 40; Blood Urea Nitrogen 12 mg/dL (7-17); Calcium 8.5 mg/dL (8.4-10.2); Hemolysis Index 0
--- NOTE | 2019-03-20 08:43 | Progress Note ---
Assessment and Plan Left proximal femur fracture s/p closed reduction Acute blood loss anemia postoperatively s/p transfusion of PRBCs Hx coronary artery disease with single vessel bypass grafting Hx of mitral valve repair Hx of tricuspid valve repair Hx of Ischemic Cardiomyopathy EF 35-40% by echo 02/2019 Persistent atrial fibrillation with prior MAZE procedure on warfarin for oral anticoagulation. warfarin on hold Hx of sick sinus syndrome s/p PPM Recommendations: Continue low dose metoprolol for persistent atrial fibrillation with holding pa rameters. Medical therapy for underlying coronary artery disease and ischemic cardiomyopathy as tolerated. Otherwise, conservative cardiac management. Subjective Date of service: 03/20/19 Principal diagnosis: Hip fracture Interval history: Patient has no cardiac complaints. She denies chest pain and shortness of breath. Objective Vital Signs Temp Pulse Resp BP Pulse Ox 03/20/19 07:57 97.3 F L 95 H 18 94/52 93 03/20/19 04:15 16 03/19/19 22:27 16 03/19/19 21:33 73 116/61 03/19/19 21:27 18 03/19/19 19:45 18 03/19/19 19:38 98.4 F 91 H 20 131/60 96 03/19/19 19:00 20 03/19/19 18:29 97.9 F 80 18 99/46 96 03/19/19 17:59 98.0 F 72 18 98/54 98 03/19/19 17:29 98.0 F 91 H 17 102/52 99 03/19/19 16:59 98.0 F 65 18 106/57 99 03/19/19 16:29 98.3 F 69 19 95/54 98 03/19/19 15:59 98.1 F 74 18 98/54 98 03/19/19 15:44 98.1 F 71 18 108/48 99 03/19/19 14:53 18 03/19/19 11:55 97.9 F 66 18 90/49 99 03/19/19 09:37 18 - Physical Examination General: No Apparent Distress HEENT: Positive: PERRL Neck: Positive: trachea midline Cardiac: Positive: irregularly irregular Lungs: Positive: Decreased Breath Sounds Neuro: Positive: Weakness Extremities: Absent: edema - Labs and Meds Coagulation 03/19/19 Range/Units 12:42 PT 14.4 (12.2-14.9) Sec. INR 1.15 H (0.87-1.13) CBC 03/19/19 03/20/19 Range/Units 22:24 04:08 WBC 6.1 (4.5-11.0) K/mm3 RBC 2.45 L (3.65-5.03) M/mm3 Hgb 8.1 L 7.8 L (10.1-14.3) gm/dl Hct 23.2 L 22.5 L (30.3-42.9) % Plt Count 227 (140-440) K/mm3 Comprehensive Metabolic Panel 03/20/19 Range/Units 04:08 Sodium 143 (137-145) mmol/L Potassium 3.5 L (3.6-5.0) mmol/L Chloride 101.1 (98-107) mmol/L Carbon Dioxide 32 H (22-30) mmol/L BUN 12 (7-17) mg/dL Creatinine 0.3 L (0.7-1.2) mg/dL Glucose 95 (65-100) mg/dL Calcium 8.5 (8.4-10.2) mg/dL
[2019-03-20] MEDS: LOVENOX SUB-Q SCH (09:56)
[2019-03-20] MEDS ORDERED: K-DUR PO NR (10:00)
[2019-03-20] MEDS: LOPRESSOR PO SCH (10:40)
--- NOTE | 2019-03-20 11:23 | Discharge Summary ---
Providers - Providers Date of Admission: 03/16/19 01:54 Date of discharge: 03/20/19 Attending physician: JOSE MANUEL KISER 03/16/19 01:54 Consult to Physician [CONS] Routine Comment: Dr. Mckinney spoke with Dr. 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 fib and depression was presented to [facility] ED with left hip pain. She stated that she said the left hip pain for 3 weeks, x-ray was done at the snf which shows fracture, she was sent here for further evaluation. Discharge Diagnoses: Acute left intertrochanteric fracture s/p Close reduction insertion of intramedullary nail left femur on 03/16/19 Acute Blood loss Anemia s/p 3 units of PRBC transfused, current Hemoglobin is 7.8 Hypertension Coronary artery disease-POA A. fib-POA S/P MAZE procedure Depression-POA Anemia-POA Hx of MITRAL VALVE REPAIR HX OF TRICUSPID VALVE REMAIR HX OF ISCHEMIC CARIOMYPATHY, EF 35-40% by echo 02/2019 hx of sick sinus syndrome s/p PPM Disposition: DC/TX-03 [facility] Time spent for discharge: 35 minutes Core Measure Documentation - Palliative Care Palliative Care/ Comfort Measures: Not Applicable - Core Measures Any of the following diagnoses?: none - VTE Discharge Requirements Deep Vein Thrombosis/Pulmonary Embolism Present on Admission: No Has pt received <5 days of overlap therapy or INR<2.0: No Anticoagulant overlap therapy prescribed at discharge: No Contraindication No Overlap Therapy order at DC: Not Indicated Exam - Physical Exam Narrative exam: Gen: thin frail appearing, NAD, Awake, Alert, Orientated HEENT: NCAT, EOMI, PERRL, OP Clear Neck: supple, no adenopathy, no thyromegaly, no JVD CVS/Heart: irregular irregular, normal S1S2, pulses present bilaterally Chest/Lungs: CTA B, Symmetrical chest expansion, good air entry bilaterally GI/Abdomen: soft, NTND, good bowel sounds, no guarding or rebound /Bladder: no suprapubic tenderness, no CVA or paraspinal tenderness Extermity/Skin: left hip with surgery dsg c/d/i, pale skin MSK: FROM x 3, LROM left hip with surgery dsg c/d/i Neuro: CN 2-12 grossly intact, no new focal deficits Psych: calm - Constitutional Vitals: Temp Pulse Resp BP Pulse Ox 97.3 F L 95 H 18 94/52 93 03/20/19 07:57 03/20/19 07:57 03/20/19 07:57 03/20/19 07:57 03/20/19 10:00 Plan Activity: up only with assistance Weight Bearing Status: Weight Bear as Tolerated (per Surgeon recommendation) Diet: low salt Wound: per your surgeon's advice Special Instructions: physical therapy Additional Instructions: 1) Spoke with Dr. Benson, continue Eliquis 2.5 mg po bid for dvt prevention and stroke prevention. 2) Check cbc in 2 days and then weekly, notify MD immediately if hemoglobin is less than 7.0 and stop Eliquis and notify Dr. Benson or Dr. Manzano Follow up with: [facility] MD ANDREA [Primary Care Provider] - 3-5 Days JEAN-CLAUDE BENSON MD [Staff Physician] - 7 Days JAIRO MANAZNO MD [Staff Physician] - 7 Days Prescriptions: Apixaban [Eliquis] 2.5 mg PO BID #30 tablet Metoprolol [Lopressor TAB] 12.5 mg PO BID #60 tablet oxyCODONE /ACETAMINOPHEN [Percocet 5/325 mg] 1 tab PO Q8H PRN #20 tablet PRN Reason: Pain
[2019-03-20 17:08] VITALS: BP 106/57
== END 2019-03-20 19:30 | DRG 481 ==
LOC: ED 23:44 → 3B-SURG 03-16 01:54
PROVIDERS: ADMIT Internal Medicine; ATTEND Internal Medicine
PROC: 0QS736Z Reposition Left Upper Femur with Intramedullary Internal Fixation Device, Percutaneous Approach (ICD-10-PCS; principal; 2019-03-16)
PROC: 30233N1 Transfusion of Nonautologous Red Blood Cells into Peripheral Vein, Percutaneous Approach (ICD-10-PCS; 2019-03-17)
DX: S72.142A Displaced intertrochanteric fracture of left femur, initial encounter for closed fracture (principal); D62 Acute posthemorrhagic anemia; I10 Essential (primary) hypertension; I25.10 Atherosclerotic heart disease of native coronary artery without angina pectoris; I48.91 Unspecified atrial fibrillation; F32.9 Major depressive disorder, single episode, unspecified; I25.5 Ischemic cardiomyopathy; K21.9 Gastro-esophageal reflux disease without esophagitis; Z95.1 Presence of aortocoronary bypass graft; Z95.810 Presence of automatic (implantable) cardiac defibrillator; Z79.899 Other long term (current) drug therapy; Z82.49 Family history of ischemic heart disease and other diseases of the circulatory system; Z79.01 Long term (current) use of anticoagulants
CPT/HCPCS: 36415; 80048; 80053; 85014; 85018; 85025; 85027; 85610; 85730; 86850; 86900; 86901; 86920; 93005; 93010; 94760; 96374; 96375; 96376; G0378; C1713; C1769; J1170; J1650; J1885; J2250; J2270; J2704; J3010; J7030; J7040; J7050; P9016

== ENCOUNTER 2019-04-23 14:11 | Inpatient (IN) | payer MEDICARE, OTHER ==
[2019-04-23] MEDS ORDERED: NACL 0.9% 1000 ML IV ONE (14:43)
[2019-04-23 15:28] LABS: Basophils # (Auto) 0.1 K/mm3 (0.0-0.1); Basophils % (Auto) 0.7 % (0.0-1.8); Eosinophils % (Auto) 0.3 % (0.0-4.3); Hematocrit 34.4 % (30.3-42.9); Hemoglobin 11.4 gm/dl (10.1-14.3); Lymphocytes # (Auto) 1.3 K/mm3 (1.2-5.4); Lymphocytes % (Auto) 12.2 % (13.4-35.0); Mean Corpuscular HGB Conc 33 % (30-34); Mean Corpuscular Volume 93 fl (79-97); Monocytes # (Auto) 0.7 K/mm3 (0.0-0.8); Monocytes % (Auto) 7.2 % (0.0-7.3); Platelet Count 378 K/mm3 (140-440); Red Cell Distribution Width 16.9 % (13.2-15.2)
[2019-04-23 15:47] LABS: Alanine Aminotransferase 13 units/L (7-56); Albumin 3.7 g/dL (3.9-5); BUN/Creatinine Ratio 36; Blood Urea Nitrogen 18 mg/dL (7-17); Calcium 9.4 mg/dL (8.4-10.2); Hemolysis Index 5
[2019-04-23] MEDS ORDERED: NACL 0.9% 1000 ML 1,000 ML ONE ×2 (16:51)
[2019-04-23] MEDS ORDERED: MORPHINE IV ONE ×2 (17:08→18:20)
[2019-04-23] MEDS ORDERED: ZOFRAN IV ONE (17:09)
--- NOTE | 2019-04-23 18:08 | XRay Report ---
CHEST 1 VIEW INDICATION: Fall. COMPARISON: None. FINDINGS: Support devices: Pacemaker in satisfactory position. Heart: Within normal limits. Lungs/Pleura: Mild atelectasis versus scarring left mid zone. The lungs are otherwise clear. Additional findings: None. IMPRESSION: Mild atelectasis versus scarring left mid zone. Signer Name: Austin Pinon MD Signed: 04/23/2019 6:03 PM Workstation Name: [id number]
--- NOTE | 2019-04-23 18:09 | XRay Report ---
Left foreleg 3 views INDICATION: Left foreleg pain following injury IMPRESSION: There is diffuse swelling throughout the left foreleg. The left foreleg is osteopenic but no displaced fracture is identified. Signer Name: Ja Zhu MD Signed: 04/23/2019 6:04 PM Workstation Name: [id number]
--- NOTE | 2019-04-23 18:09 | XRay Report ---
LEFT FEMUR 2 VIEWS. INDICATION / CLINICAL INFORMATION: Fall COMPARISON: None available. FINDINGS: BONES / JOINT(S): No acute fracture or subluxation. Previous placement of a compression screw and int ramedullary elida.. No significant arthritis. SOFT TISSUES: No significant abnormality. ADDITIONAL FINDINGS: Underlying osteopenia is moderate. Signer Name: Austin Pinon MD Signed: 04/23/2019 6:05 PM Workstation Name: [id number]
[2019-04-23 19:04] LABS: Bilirubin,Urine NEG (Negative); Blood,Urine NEG (Negative); Color,Urine Amber (Yellow); Mucus,Urine 2+ /HPF
--- NOTE | 2019-04-23 19:24 | Emergency Department Report ---
ED Fall HPI - General Chief Complaint: Extremity Injury, Lower Stated Complaint: (L) HIP PAIN FROM FALL Time Seen by Provider: 04/23/19 14:40 Source: patient, EMS Mode of arrival: Stretcher - History of Present Illness Initial Comments: Mrs. Hogue is a 69 yo female with hx of fibromyalgia, pneumonia, anemia, hip fracture, hypertension, coronary disease, atrial fibrillation, depression presents for left lower extremity pain and swelling. Hx of multiple falls at home. She has severe pain in her left knee. She has diffuse swelling in her left lower extremity. Home health nurse contacted the EMS. Patient lives alone. She denies chest pain. She denies head trauma. Medications Elqiuis, gabapentin, metoprolol, duloxetine Complaint: fall -: days(s) (over several days) Fall From: standing When Fall Occurred: unsure Fall Witnessed: no Place Fall Occurred: home Loss of Consciousness: none Prolonged Down Time?: unclear Symptoms Prior to Fall: none Location - Extremities: Left: Thigh, Knee Severity: severe Quality: aching Context: tripped/slipped Associated Symptoms: denies - Related Data Previous Rx's Medication Instructions Recorded Last Taken Type Apixaban [Eliquis] 2.5 mg PO BID #30 tablet 03/20/19 Unknown Rx Duloxetine HCl 60 mg PO DAILY #30 03/20/19 Unknown Rx Metoprolol [Lopressor TAB] 12.5 mg PO BID #60 tablet 03/20/19 Unknown Rx oxyCODONE /ACETAMINOPHEN [Percocet 1 tab PO Q8H PRN #20 tablet 03/20/19 Unknown Rx 5/325 mg] Allergies Allergy/AdvReac Type Severity Reaction Status Date / Time atorvastatin [From Lipitor] Allergy Unknown Verified 02/22/19 18:11 metoclopramide [From Reglan] Allergy Unknown Verified 02/22/19 21:06 promethazine [From Phenergan] Allergy Unknown Verified 02/22/19 21:06 ED Review of Systems ROS: Stated complaint: (L) HIP PAIN FROM FALL Other details as noted in HPI Comment: All other systems reviewed and negative Constitutional: malaise Respiratory: denies: shortness of breath Cardiovascular: denies: chest pain Skin: denies: rash, lesions Neurological: denies: headache, weakness ED Past Medical Hx - Past Medical History Previous Medical History?: Yes Hx Hypertension: Yes Hx GERD: Yes Hx Arthritis: Yes Additional medical history: A. FIB - Surgical History Hx Open Heart Surgery: Yes (CABG) Hx Pacemaker: Yes (Left chest) Hx Internal Defibrillator: Yes (Left chest) - Social History Smoking Status: Never Smoker Substance Use Type: None - Medications Home Medications: Home Medications Medication Instructions Recorded Confirmed Last Taken Type Apixaban [Eliquis] 2.5 mg PO BID #30 tablet 03/20/19 Unknown Rx Duloxetine HCl 60 mg PO DAILY #30 03/20/19 03/17/19 Unknown Rx Metoprolol [Lopressor TAB] 12.5 mg PO BID #60 tablet 03/20/19 Unknown Rx oxyCODONE /ACETAMINOPHEN [Percocet 1 tab PO Q8H PRN #20 tablet 03/20/19 Unknown Rx 5/325 mg] ED Physical Exam - General Limitations: Physical Limitation General appearance: alert, in no apparent distress, other (elderly frail alert and conversant) - Head Head exam: Present: atraumatic, normocephalic - Eye Eye exam: Present: normal appearance - ENT ENT exam: Present: mucous membranes moist - Neck Neck exam: Present: normal inspection, full ROM - Respiratory Respiratory exam: Present: normal lung sounds bilaterally. Absent: respiratory distress, wheezes, rales, rhonchi - Cardiovascular Cardiovascular Exam: Present: normal rhythm, tachycardia. Absent: systolic murmur, diastolic murmur, rubs, gallop - GI/Abdominal GI/Abdominal exam: Present: soft, normal bowel sounds. Absent: distended, tenderness, guarding, rebound - Extremities Exam Extremities exam: Present: other (diffuse swelling left lower extremity with knee tenderness specifically) - Neurological Exam Neurological exam: Present: alert, oriented X3 - Psychiatric Psychiatric exam: Present: depressed, flat affect - Skin Skin exam: Present: warm, dry, intact, pallor, other (dark necrotic ulcer left medial foot). Absent: rash ED Course Vital Signs 04/23/19 04/23/19 04/23/19 15:15 16:45 18:51 Temperature 98.9 F Pulse Rate 116 H 123 H 115 H Respiratory 20 20 20 Rate Blood Pressure 115/66 118/75 113/68 [Right] O2 Sat by Pulse 93 92 93 Oximetry ED Medical Decision Making - Lab Data Result diagrams: 04/23/19 15:06 04/23/19 15:06 Laboratory Results - last 24 hr 04/23/19 04/23/19 04/23/19 15:06 15:06 15:06 WBC 10.3 RBC 3.70 Hgb 11.4 Hct 34.4 MCV 93 MCH 31 MCHC 33 RDW 16.9 H Plt Count 378 Lymph % (Auto) 12.2 L [place] % (Auto) 7.2 Eos % (Auto) 0.3 Baso % (Auto) 0.7 Lymph # 1.3 [place] # 0.7 Eos # 0.0 Baso # 0.1 Seg Neutrophils % 79.6 H Seg Neutrophils # 8.2 H Sodium 142 Potassium 3.7 Chloride 97.7 L Carbon Dioxide 33 H Anion Gap 15 BUN 18 H Creatinine 0.5 L Estimated GFR > 60 BUN/Creatinine Ratio 36 Glucose 109 H Lactic Acid 1.40 Calcium 9.4 Total Bilirubin 0.50 AST 19 ALT 13 Alkaline Phosphatase 169 H Total Protein 7.6 Albumin 3.7 L Albumin/Globulin Ratio 0.9 Urine Color Urine Turbidity Urine pH Ur Specific [place] Urine Protein Urine Glucose (UA) Urine Ketones Urine Blood Urine Nitrite Urine Bilirubin Urine Urobilinogen Ur Leukocyte Esterase Urine WBC (Auto) Urine RBC (Auto) U Epithel Cells (Auto) Urine Mucus 04/23/19 04/23/19 18:04 18:25 WBC RBC Hgb Hct MCV MCH MCHC RDW Plt Count Lymph % (Auto) [place] % (Auto) Eos % (Auto) Baso % (Auto) Lymph # [place] # Eos # Baso # Seg Neutrophils % Seg Neutrophils # Sodium Potassium Chloride Carbon Dioxide Anion Gap BUN Creatinine Estimated GFR BUN/Creatinine Ratio Glucose Lactic Acid 1.10 Calcium Total Bilirubin AST ALT Alkaline Phosphatase Total Protein Albumin Albumin/Globulin Ratio Urine Color Nallely Urine Turbidity Cloudy Urine pH 5.0 Ur Specific [place] 1.034 H Urine Protein 100 mg/dl Urine Glucose (UA) Neg Urine Ketones Neg Urine Blood Neg Urine Nitrite Neg Urine Bilirubin Neg Urine Urobilinogen 4.0 Ur Leukocyte Esterase Neg Urine WBC (Auto) 2.0 Urine RBC (Auto) 7.0 U Epithel Cells (Auto) 35.0 H Urine Mucus 2+ - Radiology Data Radiographs of the left femur and tib-fib no notable evidence of fracture - Medical Decision Making 1. failure to thrive, patient obviously debilitated with inabiilty to ambulate 2. left lower pain extremity, contusion vs postoperative swelling vs DVT, however, DVT less likely with Eliquis use, will need duplex once admitted 3. severe pain hx of fibromyalgia and narcotic dependence, has required mul tiple doses of IV pain medication admitted to hospitalist service for further treatment and evaluation Critical care attestation.: If time is entered above; I have spent that time in minutes in the direct care of this critically ill patient, excluding procedure time. ED Disposition Clinical Impression: Failure to thrive, Narcotic dependence, Leg pain, left, Closed left hip fracture Disposition: OP ADMIT IP TO THIS HOSP Is pt being admited?: Yes Does the pt Need Aspirin: No Condition: Stable
--- NOTE | 2019-04-23 20:24 | Cat Scan Report ---
CT angio chest INDICATION / CLINICAL INFORMATION: tachycardia hypoxia recent fx and hospitalization. TECHNIQUE: Precontrast bolus timing images were obtained followed by postcontrast axial and reformatted images. 3-plane MIP reconstructions were performed at an independent workstation by the technologist. All CT scans at this location are performed using CT dose reduction for ALARA by means of automated exposure control. COMPARISON: None available. FINDINGS: Enhancement of the pulmonary arteries is normal bilaterally. No evidence of thoracic aortic dissection. The ascending aorta measures 4.1 cm. No mediastinal adenopathy. No cardiac enlargement or pericardial effusion. Inhomogeneous opacities are seen in the lingular segment of the left upper lobe and the right middle lobe with mild bronchiectasis. Multiple small nodular densities are seen in the right lower lobe and right upper lobe. The largest m easures 6 mm (series 2 image 54). Limited upper abdominal images show no significant abnormality. Osseous structures are negative. IMPRESSION: 1. No evidence of acute pulmonary embolism. 2. Patchy opacities in the right middle lobe and lingula may represent acute airspace disease. 3. Ectatic ascending thoracic aorta. 4. Incidental 6 mm pulmonary nodule in the right middle lobe. A follow-up study in 6 months is recomm ended. Signer Name: Sony Zamora MD Signed: 04/23/2019 8:20 PM Workstation Name: [id number]
[2019-04-23] MEDS ORDERED: MORPHINE IV PRN (21:58)
--- NOTE | 2019-04-23 22:02 | History and Physical Report ---
History of Present Illness Date of examination: 04/23/19 History of present illness: 68 -year-old woman with a history of hypertension, coronary artery disease, A. fib, depression was brought to the for evaluation because she is unable to care for herself. She was recently discharged from rehabilitation. Complained that the left knee swollen, painful for 2 weeks, difficult to ambulate. She'll like to be placed in a [facility] Review of systems Constitutional: no weight loss, chills, fever Ears, eyes, nose, mouth and throat: no nasal congestion, no nasal discharge, no sinus pressure, no vision change, no red eye. Neck: No neck pain or rigidity. Cardiovascular: no palpitations, chest pain Respiratory: no cough, shortness of breath Gastrointestinal: no hematochezia, abdominal pain Genitourinary : no frequency , no hematuria Musculoskeletal: no joint swelling or muscle ache Integumentary: no rash, no pruritis Neurological: no parathesias, no focal weakness Endocrine: no cold or heat intolerance, no polyuria or polydipsia Hematologic/Lymphatic: no easy bruising, no easy bleeding, no gland swelling Allergic/Immunologic: no urticaria, no angioedema. PAST MEDICAL HISTORY:hypertension, coronary artery disease, A. fib, Depression PAST SURGICAL HISTORY: CABG, AICD, orif of right hip SOCIAL HISTORY: No alcohol, drugs, tobacco FAMILY HISTORY: hypertension Medications and Allergies Allergies Allergy/AdvReac Type Severity Reaction Status Date / Time atorvastatin [From Lipitor] Allergy Unknown Verified 02/22/19 18:11 metoclopramide [From Reglan] Allergy Unknown Verified 02/22/19 21:06 promethazine [From Phenergan] Allergy Unknown Verified 02/22/19 21:06 Home Medications Medication Instructions Recorded Confirmed Last Taken Type Apixaban [Eliquis] 2.5 mg PO BID #30 tablet 03/20/19 04/24/19 04/23/19 10:00 Rx 2.5mg Duloxetine HCl 60 mg PO DAILY #30 03/20/19 04/24/19 04/23/19 10:00 Rx 60mg Metoprolol [Lopressor TAB] 12.5 mg PO BID #60 tablet 03/20/19 04/24/19 04/23/19 10:00 Rx 12.5mg oxyCODONE /ACETAMINOPHEN [Percocet 1 tab PO Q8H PRN #20 tablet 03/20/19 04/24/19 04/23/19 09:00 Rx 5/325 mg] 1tab Active Meds: Active Medications Enoxaparin Sodium (Lovenox) 30 mg SUB-Q QDAY JESSICA Morphine Sulfate (Morphine) 2 mg IV Q4H PRN PRN Reason: Pain, Moderate (4-6) Exam - Physical Exam Narrative exam: General Apperance: The patient lying in bed, breathing comfortable HEENT: Normocephalic, atraumatic. Pupils equally round and reactive to light, EOMI, no sclericterus or JVD or thyromegaly or nodule. , no carotid bruit, mucous membranes moist, no exudate or erythema Heart: S1-S2, regular is rhythm Lungs: Clear to auscultation bilaterally, breathing comfortable Abdomen: Positive bowel sounds, soft, nontender, nondistended, no organomegaly Extremities: No edema cyanosis clubbing, left knee swolling Skin: buttock and heel woundno rash, nodule, warm and dry Neuro: cranial nerves 2-12 intact, speech is fluent, motor/sensory intact - Constitutional Vitals: Temp Pulse Resp BP Pulse Ox 98.9 F 115 H 20 113/68 93 04/23/19 15:15 04/23/19 18:51 04/23/19 18:51 04/23/19 18:51 04/23/19 18:51 Results - Labs CBC & Chem 7: 04/24/19 05:32 04/24/19 05:32 Labs: Abnormal lab results 04/23/19 04/23/19 04/23/19 Range/Units 15:06 15:06 18:25 RDW 16.9 H (13.2-15.2) % Lymph % (Auto) 12.2 L (13.4-35.0) % Seg Neutrophils % 79.6 H (40.0-70.0) % Seg Neutrophils # 8.2 H (1.8-7.7) K/mm3 Chloride 97.7 L (98-107) mmol/L Carbon Dioxide 33 H (22-30) mmol/L BUN 18 H (7-17) mg/dL Creatinine 0.5 L (0.7-1.2) mg/dL Glucose 109 H (65-100) mg/dL Alkaline Phosphatase 169 H (35-129) units/L Albumin 3.7 L (3.9-5) g/dL Ur Specific [place] 1.034 H (1.003-1.030) U Epithel Cells (Auto) 35.0 H (0-13.0) /HPF - Imaging and Cardiology CT scan - chest: report reviewed CT Scan - head: report reviewed Assessment and Plan X-ray of the femur, tib-fib reviewed Assessment Failure to thrive Knee pain Pneumonia Lung nodule Decubitus Hypertension Coronary artery disease A. fib Ascending aortic aneurysm 4.1 cm Depression Plan Admit to medicine consult orthopedic, CM for placement Start IV levaquin, follow nodule in 6 months Continue appropriate outpatient medications DVT prophylaxis, consult wound care Outpatient follow-up for aneurysm
[2019-04-23] MEDS ORDERED: MORPHINE ONE (22:30)
[2019-04-24] MEDS ORDERED: SODIUM CHLORIDE FLUSH SYRINGE 10 ML IV PRN (00:03)
[2019-04-24] MEDS ORDERED: ZOFRAN IV PRN (00:03)
[2019-04-24 06:00] LABS: Basophils % (Auto) 0.3 % (0.0-1.8); Eosinophils # (Auto) 0.1 K/mm3 (0.0-0.4); Eosinophils % (Auto) 0.5 % (0.0-4.3); Hematocrit 34.5 % (30.3-42.9); Hemoglobin 11.2 gm/dl (10.1-14.3); Lymphocytes # (Auto) 1.7 K/mm3 (1.2-5.4); Lymphocytes % (Auto) 15.6 % (13.4-35.0); Mean Corpuscular HGB Conc 33 % (30-34); Mean Corpuscular Volume 95 fl (79-97); Monocytes # (Auto) 0.9 K/mm3 (0.0-0.8); Monocytes % (Auto) 7.8 % (0.0-7.3); Platelet Count 350 K/mm3 (140-440); Red Blood Count 3.65 M/mm3 (3.65-5.03); Red Cell Distribution Width 16.8 % (13.2-15.2)
[2019-04-24 06:44] LABS: BUN/Creatinine Ratio 37; Blood Urea Nitrogen 11 mg/dL (7-17); Calcium 8.8 mg/dL (8.4-10.2); Hemolysis Index 13
[2019-04-24] MEDS: LEVAQUIN 750MG/150ML 750 MG/150 ML BAG IV SCH (09:50)
[2019-04-24] MEDS: CYMBALTA PO SCH (09:52)
[2019-04-24] MEDS: ELIQUIS PO SCH ×2 (09:52→21:36)
[2019-04-24] MEDS: LOPRESSOR PO SCH ×2 (09:52→21:37)
[2019-04-24] MEDS: SODIUM CHLORIDE FLUSH SYRINGE 10 ML IV SCH ×2 (09:53→21:37)
[2019-04-24] MEDS ORDERED: DULOXETINE HCL 60 MG PO SCH (10:00)
[2019-04-24] MEDS ORDERED: LOVENOX SUB-Q SCH (10:00)
[2019-04-24] MEDS: PERCOCET 5/325 PO PRN (10:53)
--- NOTE | 2019-04-24 15:49 | Progress Note ---
Assessment and Plan Assessment and plan: 69-year-old woman with a history of hypertension, coronary artery disease, A. fib, Fibromyalgia, depression recent hip fracture status post surgery was brought to the for evaluation because she is unable to care for herself. She was recently discharged from rehabilitation. Complained that the left knee swollen, painful for 2 weeks, difficult to ambulate. Patient previously in the NH and discharged, lives alone and unable to care for self. Unsure if patient has been complaint with medications as she has had difficulty getting around. In the ED. 1. failure to thrive, patient obviously debilitated with inabiilty to ambulate, 2. left lower pain extremity, contusion vs postoperative swelling vs DVT, however, DVT less likely with Eliquis use, will need duplex once admitted, 3. severe pain hx of fibromyalgia and narcotic dependence, has required multiple doses of IV pain medication CTA ANGIO IMPRESSION: 1. No evidence of acute pulmonary embolism. 2. Patchy opacities in the right middle lobe and lingula may represent acute airspace disease. 3. Ectatic ascending thoracic aorta. 4. Incidental 6 mm pulmonary nodule in the right middle lobe. A follow-up study in 6 months is recommended. XR CHEST: Mild atelectasis versus scarring left mid zone. XR tibia: IMPRESSION: There is diffuse swelling throughout the left foreleg. The left foreleg is osteopenic but no displaced fracture is identified. Acute On Chronic Systolic Congestive heart failure Bilateral LOWER EXT EDEMA secondary to Heart failure and also RECENT traumatic injury to the knee Failure to thrive Knee pain Pneumonia Lung nodule Decubitus Hypertension Coronary artery disease A. fib Ascending aortic aneurysm 4.1 cm Depression Plan Supportive care Start gentle Lasix Repeat CT chest in 6 months. consult orthopedic, CM for placement Continue IV levaquin, follow nodule in 6 months Continue appropriate outpatient medications DVT prophylaxis, consult wound care Outpatient follow-up for aneurysm PT/OT eval Will need placement. Hospitalist Physical - Physical exam Narrative exam: General Apperance: The patient lying in bed, breathing comfortable HEENT: Normocephalic, atraumatic. Pupils equally round and reactive to light, EOMI, no sclericterus or JVD or thyromegaly or nodule. no carotid bruit, mucous membranes moist, no exudate or erythema Heart: S1-S2, TachycardIA regular is rhythm Lungs: Clear to auscultation bilaterally, breathing comfortable Abdomen: Positive bowel sounds, soft, nontender, nondistended, no organomegaly Extremities: cyanosis clubbing, left knee swelling. +2 pitting edema bilaterally Skin: buttock and heel wound, also excoriation on the lux left with mild swelling in the knee no rash, nodule, warm and dry Neuro: cranial nerves 2-12 intact, speech is fluent, motor/sensory intact - Constitutional Vitals: Temp Pulse Resp BP Pulse Ox 97.6 F 79 18 96/47 98 04/24/19 13:40 04/24/19 13:40 04/24/19 13:40 04/24/19 13:40 04/24/19 13:40 Results - Labs CBC & Chem 7: 04/24/19 05:32 04/24/19 05:32 Labs: Laboratory Last Values WBC 10.9 K/mm3 (4.5-11.0) 04/24/19 05:32 RBC 3.65 M/mm3 (3.65-5.03) 04/24/19 05:32 Hgb 11.2 gm/dl (10.1-14.3) 04/24/19 05:32 Hct 34.5 % (30.3-42.9) 04/24/19 05:32 MCV 95 fl (79-97) 04/24/19 05:32 MCH 31 pg (28-32) 04/24/19 05:32 MCHC 33 % (30-34) 04/24/19 05:32 RDW 16.8 % (13.2-15.2) H 04/24/19 05:32 Plt Count 350 K/mm3 (140-440) 04/24/19 05:32 Lymph % (Auto) 15.6 % (13.4-35.0) 04/24/19 05:32 [place] % (Auto) 7.8 % (0.0-7.3) H 04/24/19 05:32 Eos % (Auto) 0.5 % (0.0-4.3) 04/24/19 05:32 Baso % (Auto) 0.3 % (0.0-1.8) 04/24/19 05:32 Lymph # 1.7 K/mm3 (1.2-5.4) 04/24/19 05:32 [place] # 0.9 K/mm3 (0.0-0.8) H 04/24/19 05:32 Eos # 0.1 K/mm3 (0.0-0.4) 04/24/19 05:32 Baso # 0.0 K/mm3 (0.0-0.1) 04/24/19 05:32 Seg Neutrophils % 75.8 % (40.0-70.0) H 04/24/19 05:32 Seg Neutrophils # 8.3 K/mm3 (1.8-7.7) H 04/24/19 05:32 Sodium 142 mmol/L (137-145) 04/24/19 05:32 Potassium 4.1 mmol/L (3.6-5.0) 04/24/19 05:32 Chloride 100.9 mmol/L (98-107) 04/24/19 05:32 Carbon Dioxide 32 mmol/L (22-30) H 04/24/19 05:32 13 mmol/L 04/24/19 05:32 BUN 11 mg/dL (7-17) 04/24/19 05:32 0.3 mg/dL (0.7-1.2) L 04/24/19 05:32 Estimated GFR > 60 ml/min 04/24/19 05:32 37 % 04/24/19 05:32 Glucose 84 mg/dL (65-100) 04/24/19 05:32 Lactic Acid 1.10 mmol/L (0.7-2.0) 04/23/19 18:04 Calcium 8.8 mg/dL (8.4-10.2) 04/24/19 05:32 0.50 mg/dL (0.1-1.2) 04/23/19 15:06 AST 19 units/L (5-40) 04/23/19 15:06 ALT 13 units/L (7-56) 04/23/19 15:06 169 units/L (35-129) H 04/23/19 15:06 0.026 ng/mL (0.00-0.029) 04/23/19 19:52 7.6 g/dL (6.3-8.2) 04/23/19 15:06 3.7 g/dL (3.9-5) L 04/23/19 15:06 0.9 % 04/23/19 15:06 [place] (Yellow) 04/23/19 18:25 Cloudy (Clear) 04/23/19 18:25 5.0 (5.0-7.0) 04/23/19 18:25 Ur Specific [place] 1.034 (1.003-1.030) H 04/23/19 18:25 100 mg/dl mg/dL (Negative) 04/23/19 18:25 Neg mg/dL (Negative) 04/23/19 18:25 Neg mg/dL (Negative) 04/23/19 18:25 Neg (Negative) 04/23/19 18:25 Neg (Negative) 04/23/19 18:25 Neg (Negative) 04/23/19 18:25 4.0 mg/dL (<2.0) 04/23/19 18:25 Ur Leukocyte Esterase Neg (Negative) 04/23/19 18:25 2.0 /HPF (0.0-6.0) 04/23/19 18:25 7.0 /HPF (0.0-6.0) 04/23/19 18:25 U Epithel Cells (Auto) 35.0 /HPF (0-13.0) H 04/23/19 18:25 2+ /HPF 04/23/19 18:25 Active Medications - Current Medications Current Medications: Generic Name Dose Route Start Last Admin Trade Name Freq PRN Reason Stop Dose Admin Acetaminophen 650 mg 04/24/19 00:03 Tylenol PO Q4H PRN Pain MILD(1-3)/Fever >100.5/DUPREE Apixaban 2.5 mg 04/24/19 10:00 04/24/19 09:52 Eliquis PO 2.5 mg BID JESSICA Administration Protocol Diltiazem HCl 30 mg 04/24/19 16:00 Cardizem PO Q8H JESSICA Duloxetine HCl 60 mg 04/24/19 10:00 04/24/19 09:52 Cymbalta PO 60 mg DAILY JESSICA Administration Levofloxacin/Dextrose 750 mg in 150 mls @ 100 mls/hr 04/24/19 10:00 04/24/19 09:50 Levaquin 750mg/150ml IV 100 mls/hr Q24HR JESSICA Administration Protocol Metoprolol Tartrate 12.5 mg 04/24/19 10:00 04/24/19 09:52 Lopressor PO 12.5 mg BID JESSICA Administration Ondansetron HCl 4 mg 04/24/19 00:03 Zofran IV Q4H PRN Nausea And Vomiting Oxycodone/Acetaminophen 1 tab 04/24/19 06:33 04/24/19 10:53 Percocet 5/325 PO 1 tab Q8H PRN Administration Pain Sodium Chloride 10 ml 04/24/19 10:00 04/24/19 09:53 Sodium Chloride Flush Syringe 10 Ml IV 10 ml BID JESSICA Administration Sodium Chloride 10 ml 04/24/19 00:03 Sodium Chloride Flush Syringe 10 Ml IV PRN PRN LINE FLUSH Nutrition/Malnutrition Assess - Dietary Evaluation Nutrition/Malnutrition Findings: Nutrition Notes Start: 04/24/19 14:06 Freq: Status: Active Protocol: Document 04/24/19 14:06 LP (Rec: 04/24/19 14:15 LP [email or web address]) Nutrition Notes Need for Assessment generated from: MD Order Initial or Follow up Assessment Current Diagnosis Coronary Artery Disease, Hypertension Other Pertinent Diagnosis hip Fx Current Diet Cardiac Labs/Tests BUN 32 Pertinent Medications Reviewed Height 5 ft 5 in Weight 47.627 kg [place] Body Weight (kg) 56.81 BMI 17.4 Subjective/Other Information Consult for poor oral intakes. Pt drinking Ensure and just woke up. Consumed 100% of Ensure. Pt noted with muscle loss and fat loss. Denies new wt changes. Burn Absent Trauma Absent Minimum of two criteria Yes Body Fat Depletion Moderate depletion (severe) Muscle Mass Moderate Depletion (severe) #1 Nutrition Diagnosis Malnutrition Etiology Advanced age As Evidenced by Signs and Symptoms muscle and fat loss, temoral wasting. Is patient on ventilator? No Is Patient Ambulatory and/or Out of Bed Yes REE-([place]-St. Jeor-ambulatory/OOB) [ 1296.295 NUTR.MSJOOB] Kcal/Kg value to use for calculation 35 Approximate Energy Requirements Using 1667 kcal/Kg Calculation Used for Recommendations Kcal/kg Additional Notes Protein needs are 57-71g (1.2- 1.5g/kg) Fluid needs are 1ml/kcal Nutrition Intervention Change Diet Order: Continue Add Supplement/Snack (indicate name/kcal Ensure Enlive TID /protein ) Provides kCal: 1,050 Provides Protein (gm) 60 Goal #1 Meet at least 80% of kcal and protein needs Anticipated Discharge Needs: Cardiac diet with ONS BID to TID Follow-Up By: 04/27/19 Additional Comments Follow for intakes
[2019-04-24] MEDS ORDERED: CARDIZEM PO SCH (16:00)
[2019-04-24] MEDS: TYLENOL PO PRN ×2 (16:43→21:36)
[2019-04-25] MEDS: PERCOCET 5/325 PO PRN (03:06)
[2019-04-25] MEDS: CYMBALTA PO SCH (10:25)
[2019-04-25] MEDS: LEVAQUIN 750MG/150ML 750 MG/150 ML BAG IV SCH (10:25)
[2019-04-25] MEDS: LOPRESSOR PO SCH ×2 (10:25→21:30)
[2019-04-25] MEDS: ELIQUIS PO SCH ×2 (10:25→21:29)
--- NOTE | 2019-04-25 10:25 | Vascular Lab Report ---
DUPLEX DOPPLER LOWER EXTREMITY VEINS, LEFT INDICATION: Left lower extremity pain for one week.. TECHNIQUE: Duplex doppler imaging was performed through the veins of the left lower extremity using venous compression and other maneuvers. COMPARISON: No relevant prior imaging study available. FINDINGS: Left Common femoral vein: Negative. Left Superficial femoral vein: Negative. Left Popliteal vein: Negative. Left Calf veins: Negative. Additional findings: There is mild nonspecific soft tissue edema in the calf subcutaneous tissues.. IMPRESSION: No sonographic evidence for DVT in the left lower extremity. Signer Name: Moshe Griffin Jr, MD Signed: 04/25/2019 10:21 AM Workstation Name: [id number]
[2019-04-25] MEDS: SODIUM CHLORIDE FLUSH SYRINGE 10 ML IV SCH ×2 (10:42→21:41)
[2019-04-25] MEDS: TYLENOL PO PRN ×3 (10:44→21:30)
[2019-04-25] MEDS ORDERED: LASIX IV NR (11:17)
--- NOTE | 2019-04-25 15:13 | Progress Note ---
Assessment and Plan Assessment and plan: 69-year-old woman with a history of hypertension, coronary artery disease, A. fib, Fibromyalgia, depression recent hip fracture status post surgery was brought to the for evaluation because she is unable to care for herself. She was recently discharged from rehabilitation. Complained that the left knee swollen, painful for 2 weeks, difficult to ambulate. Patient previously in the NH and discharged, lives alone and unable to care for self. Unsure if patient has been complaint with medications as she has had difficulty getting around. In the ED. 1. failure to thrive, patient obviously debilitated with inabiilty to ambulate, 2. left lower pain extremity, contusion vs postoperative swelling vs DVT, however, DVT less likely with Eliquis use, will need duplex once admitted, 3. severe pain hx of fibromyalgia and narcotic dependence, has required multiple doses of IV pain medication CTA ANGIO IMPRESSION: 1. No evidence of acute pulmonary embolism. 2. Patchy opacities in the right middle lobe and lingula may represent acute airspace disease. 3. Ectatic ascending thoracic aorta. 4. Incidental 6 mm pulmonary nodule in the right middle lobe. A follow-up study in 6 months is recommended. XR CHEST: Mild atelectasis versus scarring left mid zone. XR tibia: IMPRESSION: There is diffuse swelling throughout the left foreleg. The left foreleg is osteopenic but no displaced fracture is identified. Doppler lower ext: Negative for DVT Acute On Chronic Systolic Congestive heart failure Bilateral LOWER EXT EDEMA secondary to Heart failure and also RECENT traumatic injury to the knee Failure to thrive Knee pain Pneumonia Lung nodule Decubitus Hypertension Coronary artery disease A. fib Ascending aortic aneurysm 4.1 cm Depression Plan Supportive care Daily weight, Lasix iv, Discontinue singh Repeat CT chest in 6 months. consult orthopedic, CM for placement Continue IV levaquin, follow nodule in 6 months Continue appropriate outpatient medications DVT prophylaxis, consult wound care Outpatient follow-up for aneurysm PT/OT eval Will need placement. DISCUSSED WITH CM ANTICIPATE DISCHARGE IN AM History Interval history: Patient seen and examined, no new complaints. reports some improvement Hospitalist Physical - Physical exam Narrative exam: General Appearance: The patient lying in bed, breathing comfortable HEENT: Normocephalic, atraumatic. Pupils equally round and reactive to light, EOMI, no sclericterus or JVD or thyromegaly or nodule. no carotid bruit, mucous membranes moist, no exudate or erythema Heart: S1-S2, regular is rhythm Lungs: Clear to auscultation bilaterally, breathing comfortable Abdomen: Positive bowel sounds, soft, nontender, nondistended, no organomegaly Extremities: cyanosis clubbing, left knee swelling. +1 pitting edema bilaterally Skin: buttock and heel wound, also excoriation on the lux left with mild swelling in the knee no rash, nodule, warm and dry Neuro: cranial nerves 2-12 intact, speech is fluent, motor/sensory intact - Constitutional Vitals: Temp Pulse Resp BP Pulse Ox 99.0 F 103 H 20 126/76 93 04/25/19 07:51 04/25/19 10:25 04/25/19 08:35 04/25/19 10:25 04/25/19 09:23 Results - Labs CBC & Chem 7: 04/24/19 05:32 04/24/19 05:32 Labs: Laboratory Last Values WBC 10.9 K/mm3 (4.5-11.0) 04/24/19 05:32 RBC 3.65 M/mm3 (3.65-5.03) 04/24/19 05:32 Hgb 11.2 gm/dl (10.1-14.3) 04/24/19 05:32 Hct 34.5 % (30.3-42.9) 04/24/19 05:32 MCV 95 fl (79-97) 04/24/19 05:32 MCH 31 pg (28-32) 04/24/19 05:32 MCHC 33 % (30-34) 04/24/19 05:32 RDW 16.8 % (13.2-15.2) H 04/24/19 05:32 Plt Count 350 K/mm3 (140-440) 04/24/19 05:32 Lymph % (Auto) 15.6 % (13.4-35.0) 04/24/19 05:32 [place] % (Auto) 7.8 % (0.0-7.3) H 04/24/19 05:32 Eos % (Auto) 0.5 % (0.0-4.3) 04/24/19 05:32 Baso % (Auto) 0.3 % (0.0-1.8) 04/24/19 05:32 Lymph # 1.7 K/mm3 (1.2-5.4) 04/24/19 05:32 [place] # 0.9 K/mm3 (0.0-0.8) H 04/24/19 05:32 Eos # 0.1 K/mm3 (0.0-0.4) 04/24/19 05:32 Baso # 0.0 K/mm3 (0.0-0.1) 04/24/19 05:32 Seg Neutrophils % 75.8 % (40.0-70.0) H 04/24/19 05:32 Seg Neutrophils # 8.3 K/mm3 (1.8-7.7) H 04/24/19 05:32 Sodium 142 mmol/L (137-145) 04/24/19 05:32 Potassium 4.1 mmol/L (3.6-5.0) 04/24/19 05:32 Chloride 100.9 mmol/L (98-107) 04/24/19 05:32 Carbon Dioxide 32 mmol/L (22-30) H 04/24/19 05:32 13 mmol/L 04/24/19 05:32 BUN 11 mg/dL (7-17) 04/24/19 05:32 0.3 mg/dL (0.7-1.2) L 04/24/19 05:32 Estimated GFR > 60 ml/min 04/24/19 05:32 37 % 04/24/19 05:32 Glucose 84 mg/dL (65-100) 04/24/19 05:32 Lactic Acid 1.10 mmol/L (0.7-2.0) 04/23/19 18:04 Calcium 8.8 mg/dL (8.4-10.2) 04/24/19 05:32 0.50 mg/dL (0.1-1.2) 04/23/19 15:06 AST 19 units/L (5-40) 04/23/19 15:06 ALT 13 units/L (7-56) 04/23/19 15:06 169 units/L (35-129) H 04/23/19 15:06 0.026 ng/mL (0.00-0.029) 04/23/19 19:52 7.6 g/dL (6.3-8.2) 04/23/19 15:06 3.7 g/dL (3.9-5) L 04/23/19 15:06 0.9 % 04/23/19 15:06 [place] (Yellow) 04/23/19 18:25 Cloudy (Clear) 04/23/19 18:25 5.0 (5.0-7.0) 04/23/19 18:25 Ur Specific [place] 1.034 (1.003-1.030) H 04/23/19 18:25 100 mg/dl mg/dL (Negative) 04/23/19 18:25 Neg mg/dL (Negative) 04/23/19 18:25 Neg mg/dL (Negative) 04/23/19 18:25 Neg (Negative) 04/23/19 18:25 Neg (Negative) 04/23/19 18:25 Neg (Negative) 04/23/19 18:25 4.0 mg/dL (<2.0) 04/23/19 18:25 Ur Leukocyte Esterase Neg (Negative) 04/23/19 18:25 2.0 /HPF (0.0-6.0) 04/23/19 18:25 7.0 /HPF (0.0-6.0) 04/23/19 18:25 U Epithel Cells (Auto) 35.0 /HPF (0-13.0) H 04/23/19 18:25 2+ /HPF 04/23/19 18:25 Active Medications - Current Medications Current Medications: Generic Name Dose Route Start Last Admin Trade Name Trippq PRN Reason Stop Dose Admin Acetaminophen 650 mg 04/24/19 00:03 04/25/19 10:44 Tylenol PO 650 mg Q4H PRN Administration Pain MILD(1-3)/Fever >100.5/DUPREE Apixaban 2.5 mg 04/24/19 10:00 04/25/19 10:25 Eliquis PO 2.5 mg BID JESSICA Administration Protocol Duloxetine HCl 60 mg 04/24/19 10:00 04/25/19 10:25 Cymbalta PO 60 mg DAILY JESSICA Administration Furosemide 20 mg 04/25/19 18:00 Lasix PO 0600,1800 JESSICA Levofloxacin/Dextrose 750 mg in 150 mls @ 100 mls/hr 04/24/19 10:00 04/25/19 10:25 Levaquin 750mg/150ml IV 100 mls/hr Q24HR JESSICA Administration Protocol Metoprolol Tartrate 12.5 mg 04/24/19 10:00 04/25/19 10:25 Lopressor PO 12.5 mg BID JESSICA Administration Ondansetron HCl 4 mg 04/24/19 00:03 04/24/19 21:36 Zofran IV 4 mg Q4H PRN Administration Nausea And Vomiting Oxycodone/Acetaminophen 1 tab 04/24/19 06:33 04/25/19 03:06 Percocet 5/325 PO 1 tab Q8H PRN Administration Pain Sodium Chloride 10 ml 04/24/19 10:00 04/25/19 10:42 Sodium Chloride Flush Syringe 10 Ml IV 10 ml BID JESSICA Administration Sodium Chloride 10 ml 04/24/19 00:03 Sodium Chloride Flush Syringe 10 Ml IV PRN PRN LINE FLUSH Nutrition/Malnutrition Assess - Dietary Evaluation Nutrition/Malnutrition Findings: Nutrition Notes Start: 04/24/19 14:06 Freq: Status: Active Protocol: Document 04/24/19 14:06 LP (Rec: 04/24/19 14:15 LP [id number]) Nutrition Notes Need for Assessment generated from: MD Order Initial or Follow up Assessment Current Diagnosis Coronary Artery Disease, Hypertension Other Pertinent Diagnosis hip Fx Current Diet Cardiac Labs/Tests BUN 32 Pertinent Medications Reviewed Height 5 ft 5 in Weight 47.627 kg [place] Body Weight (kg) 56.81 BMI 17.4 Subjective/Other Information Consult for poor oral intakes. Pt drinking Ensure and just woke up. Consumed 100% of Ensure. Pt noted with muscle loss and fat loss. Denies new wt changes. Burn Absent Trauma Absent Minimum of two criteria Yes Body Fat Depletion Moderate depletion (severe) Muscle Mass Moderate Depletion (severe) #1 Nutrition Diagnosis Malnutrition Etiology Advanced age As Evidenced by Signs and Symptoms muscle and fat loss, temoral wasting. Is patient on ventilator? No Is Patient Ambulatory and/or Out of Bed Yes REE-([place]-St. Jeor-ambulatory/OOB) [ 1296.295 NUTR.MSJOOB] Kcal/Kg value to use for calculation 35 Approximate Energy Requirements Using 1667 kcal/Kg Calculation Used for Recommendations Kcal/kg Additional Notes Protein needs are 57-71g (1.2- 1.5g/kg) Fluid needs are 1ml/kcal Nutrition Intervention Change Diet Order: Continue Add Supplement/Snack (indicate name/kcal Ensure Enlive TID /protein ) Provides kCal: 1,050 Provides Protein (gm) 60 Goal #1 Meet at least 80% of kcal and protein needs Anticipated Discharge Needs: Cardiac diet with ONS BID to TID Follow-Up By: 04/27/19 Additional Comments Follow for intakes
[2019-04-25] MEDS: LASIX PO SCH (18:09)
[2019-04-26] MEDS: PERCOCET 5/325 PO PRN ×2 (03:00→08:35)
[2019-04-26] MEDS: LASIX PO SCH (06:02)
[2019-04-26] MEDS: CYMBALTA PO SCH (09:21)
[2019-04-26] MEDS: LOPRESSOR PO SCH (09:21)
[2019-04-26] MEDS: LEVAQUIN 750MG/150ML 750 MG/150 ML BAG IV SCH (09:23)
[2019-04-26] MEDS: ELIQUIS PO SCH (09:23)
[2019-04-26] MEDS: SODIUM CHLORIDE FLUSH SYRINGE 10 ML IV SCH (09:24)
--- NOTE | 2019-04-26 11:02 | Discharge Summary ---
Providers - Providers Date of Admission: 04/23/19 21:57 Attending physician: GALINA KENDALL MD 04/24/19 00:03 Consult to Physician [CONS] Routine Comment: DELLA Consulting Provider: JAIRO LOVE Physician Instructions: WAS NOTIFIED Reason For Exam: knee pain /swelling 04/24/19 01:26 Physical Therapy Evaluation and Treat [CONS] Routine Comment: Reason For Exam: debility 04/24/19 01:28 Consult to Wound/ET Nurse [CONS] Routine Reason For Exam: wound eval 04/24/19 01:29 Consult to Dietitian/Nutrition [CONS] Routine Physician Instructions: Reason For Exam: Reason for Consult: Poor oral intake 04/24/19 15:55 Occupational Therapy Evaluate and Treat [CONS] Routine Comment: Reason For Exam: Debility [facility] Reason for admission: generalized weakness Condition: Stable Hospital course: 69-year-old woman with a history of hypertension, coronary artery disease, A. fib, Fibromyalgia, depression recent hip fracture status post surgery was brought to the for evaluation because she is unable to care for herself. She was recently discharged from rehabilitation. Complained that the left knee swollen, painful for 2 weeks, difficult to ambulate. Patient previously in the NH and discharged, lives alone and unable to care for self. Unsure if patient has been complaint with medications as she has had difficulty getting around. In the ED. 1. failure to thrive, patient obviously debilitated with inabiilty to ambulate, 2. left lower pain extremity, contusion vs postoperative swelling vs DVT, however, DVT less likely with Eliquis use, will need duplex once admitted, 3. severe pain hx of fibromyalgia and narcotic dependence, has required multiple doses of IV pain medication Patient was treated for pulmonary infiltrate with suspesion of airway diseases, there is no evidence of Pneumonia, she was also diereses and given mild fluid secondary to over diuresis. she is stable for discharge to SNF CTA ANGIO IMPRESSION: 1. No evidence of acute pulmonary embolism. 2. Patchy opacities in the right middle lobe and lingula may represent acute airspace disease. 3. Ectatic ascending thoracic aorta. 4. Incidental 6 mm pulmonary nodule in the right middle lobe. A follow-up study in 6 months is recommended. XR CHEST: Mild atelectasis versus scarring left mid zone. XR tibia: IMPRESSION: There is diffuse swelling throughout the left foreleg. The left foreleg is osteopenic but no displaced fracture is identified. Doppler lower ext: Negative for DVT Acute On Chronic Systolic Congestive heart failure Bilateral LOWER EXT EDEMA secondary to Heart failure and also RECENT traumatic injury to the knee Failure to thrive Knee pain Pneumonia Lung nodule Decubitus Hypertension Coronary artery disease A. fib Ascending aortic aneurysm 4.1 cm Depression Disposition: DC/TX-03 SNF [facility] Time spent for discharge: 35 mins Core Measure Documentation - Palliative Care Palliative Care/ Comfort Measures: Not Applicable - Core Measures Any of the following diagnoses?: none Exam - Physical Exam Narrative exam: General Appearance: The patient lying in bed, breathing comfortable HEENT: Normocephalic, atraumatic. Pupils equally round and reactive to light, EOMI, no sclericterus or JVD or thyromegaly or nodule. no carotid bruit, mucous membranes moist, no exudate or erythema Heart: S1-S2, regular is rhythm Lungs: Clear to auscultation bilaterally, breathing comfortable Abdomen: Positive bowel sounds, soft, nontender, nondistended, no organomegaly Extremities: cyanosis clubbing, left knee swelling. +1 pitting edema bilaterally Skin: buttock and heel wound, also excoriation on the lux left with mild swelling in the knee no rash, nodule, warm and dry Neuro: cranial nerves 2-12 intact, speech is fluent, motor/sensory intact - Constitutional Vitals: Temp Pulse Resp BP Pulse Ox 99.2 F 129 H 18 114/77 97 04/26/19 07:17 04/26/19 09:21 04/26/19 08:05 04/26/19 09:21 04/26/19 08:05 Plan Activity: advance as tolerated, fall precautions Diet: low fat Special Instructions: record daily BP diary Follow up with: KATELIN BLOOM MD [Primary Care Provider] - 7 Days Prescriptions: oxyCODONE /ACETAMINOPHEN [Percocet 5/325 mg] 1 tab PO Q8H PRN #14 tablet PRN Reason: Pain
[2019-04-26] MEDS ORDERED: NACL 0.9% 1000 ML 1,000 ML IV ONE (12:10)
[2019-04-26 13:36] VITALS: BP 96/57
[2019-04-26] MEDS: TYLENOL PO PRN (15:13)
== END 2019-04-26 16:37 | DRG 291 ==
LOC: ED 14:11 → 2B-ACE 21:57
PROVIDERS: ADMIT Internal Medicine; ATTEND Internal Medicine
DX: I11.0 Hypertensive heart disease with heart failure (principal); E43 Unspecified severe protein-calorie malnutrition; F11.20 Opioid dependence, uncomplicated; J98.11 Atelectasis; I50.23 Acute on chronic systolic (congestive) heart failure; R62.7 Adult failure to thrive; L89.90 Pressure ulcer of unspecified site, unspecified stage; M79.7 Fibromyalgia; I25.10 Atherosclerotic heart disease of native coronary artery without angina pectoris; I48.91 Unspecified atrial fibrillation; F32.9 Major depressive disorder, single episode, unspecified; K21.9 Gastro-esophageal reflux disease without esophagitis; M19.90 Unspecified osteoarthritis, unspecified site; R91.1 Solitary pulmonary nodule; I71.2 Thoracic aortic aneurysm, without rupture; Z88.8 Allergy status to other drugs, medicaments and biological substances; Z95.1 Presence of aortocoronary bypass graft; Z95.810 Presence of automatic (implantable) cardiac defibrillator; Z91.81 History of falling
CPT/HCPCS: 36415; 71045; 71275; 80048; 80053; 81001; 82140; 84484; 85025; 87040; 87086; 94760; 96361; 96374; 96375; G0378; J1956; J2270; J2405; J7030; Q9967

== ENCOUNTER 2019-05-01 14:55 | Inpatient (IN) | payer MEDICARE, OTHER ==
[2019-05-01] MEDS ORDERED: NACL 0.9% 1000 ML IV ONE (16:24)
[2019-05-01 16:29] LABS: Hematocrit 33.9 % (30.3-42.9); Hemoglobin 11.1 gm/dl (10.1-14.3); Mean Corpuscular HGB Conc 33 % (30-34); Mean Corpuscular Volume 93 fl (79-97); Platelet Count 263 K/mm3 (140-440); Red Blood Count 3.63 M/mm3 (3.65-5.03)
--- NOTE | 2019-05-01 16:31 | Emergency Department Report ---
ED General Adult HPI - General Chief complaint: Altered Mental Status Stated complaint: AMS,LETHARGIC Time Seen by Provider: 05/01/19 16:12 Source: EMS Mode of arrival: Stretcher Limitations: Altered Mental Status - History of Present Illness Initial comments: Patient presents to emergency department from a local intermediate for altered mental status. Upon arrival the patient is confused and able to answer questions. Patient's BP apartment in the room is 96/58 with a heart rate of 110. Patient states that a couple weeks ago she fell and broke her femur but there are no signs of any surgery. Patient has no complaints of pain but states she just doesn't feel well. -: unknown Severity scale (0 -10): 0 Improves with: none Worsens with: none Associated Symptoms: denies other symptoms Treatments Prior to Arrival: none - Related Data Previous Rx's Medication Instructions Recorded Last Taken Type Apixaban [Eliquis] 2.5 mg PO BID #30 tablet 03/20/19 05/01/19 Rx Metoprolol [Lopressor TAB] 12.5 mg PO BID #60 tablet 03/20/19 05/01/19 Rx oxyCODONE /ACETAMINOPHEN [Percocet 1 tab PO Q8H PRN #14 tablet 04/26/19 05/01/19 Rx 5/325 mg] Allergies Allergy/AdvReac Type Severity Reaction Status Date / Time atorvastatin [From Lipitor] Allergy Unknown Verified 02/22/19 18:11 metoclopramide [From Reglan] Allergy Unknown Verified 02/22/19 21:06 promethazine [From Phenergan] Allergy Unknown Verified 02/22/19 21:06 ED Review of Systems ROS: Stated complaint: AMS,LETHARGIC Other details as noted in HPI Comment: Unobtainable due to pts medical conditions ED Past Medical Hx - Past Medical History Hx Hypertension: Yes Hx GERD: Yes Hx Arthritis: Yes Additional medical history: A. FIB - Surgical History Hx Open Heart Surgery: Yes (CABG) Hx Pacemaker: Yes (Left chest) Hx Internal Defibrillator: Yes (Left chest) - Social History Smoking Status: Never Smoker Substance Use Type: None - Medications Home Medications: Home Medications Medication Instructions Recorded Confirmed Last Taken Type Apixaban [Eliquis] 2.5 mg PO BID #30 tablet 03/20/19 05/01/19 05/01/19 Rx Metoprolol [Lopressor TAB] 12.5 mg PO BID #60 tablet 03/20/19 05/01/19 05/01/19 Rx oxyCODONE /ACETAMINOPHEN [Percocet 1 tab PO Q8H PRN #14 tablet 04/26/19 05/01/19 05/01/19 Rx 5/325 mg] ED Physical Exam - General Limitations: Altered Mental Status General appearance: alert, in no apparent distress, other (Alert but confused) - Head Head exam: Present: atraumatic, normocephalic - Eye Eye exam: Present: normal appearance, PERRL, EOMI - ENT ENT exam: Present: mucous membranes dry - Neck Neck exam: Present: normal inspection - Respiratory Respiratory exam: Present: normal lung sounds bilaterally. Absent: respiratory distress - Cardiovascular Cardiovascular Exam: Present: normal rhythm, tachycardia, irregular rhythm. Absent: systolic murmur, diastolic murmur, rubs, gallop - GI/Abdominal GI/Abdominal exam: Present: soft, normal bowel sounds. Absent: distended, tenderness - Extremities Exam Extremities exam: Present: normal inspection - Back Exam Back exam: Present: normal inspection - Neurological Exam Neurological exam: Present: alert, CN II-XII intact. Absent: motor sensory deficit - Psychiatric Psychiatric exam: Present: normal affect, normal mood - Skin Skin exam: Present: warm, dry, intact, normal color. Absent: rash ED Course Vital Signs 05/01/19 05/01/19 05/01/19 15:14 16:00 17:00 Temperature 98.2 F Pulse Rate 98 H 90 91 H Respiratory 16 16 16 Rate Blood Pressure 100/62 Blood Pressure 100/62 96/58 98/58 [Right] O2 Sat by Pulse 100 100 100 Oximetry 05/01/19 05/01/19 05/01/19 18:00 19:15 19:30 Temperature 97.9 F 97.7 F Pulse Rate 98 H 100 H 110 H Respiratory 16 17 17 Rate Blood Pressure 103/71 Blood Pressure 100/57 103/71 [Right] O2 Sat by Pulse 100 100 100 Oximetry 05/01/19 05/01/19 05/01/19 20:00 20:30 21:00 Temperature Pulse Rate 101 H 111 H 112 H Respiratory 17 18 16 Rate Blood Pressure 106/73 102/65 98/60 Blood Pressure [Right] O2 Sat by Pulse 100 100 99 Oximetry 05/01/19 21:30 Temperature Pulse Rate Respiratory Rate Blood Pressure 96/63 Blood Pressure [Right] O2 Sat by Pulse 98 Oximetry ED Medical Decision Making - Lab Data Result diagrams: 05/01/19 15:47 05/01/19 15:47 Lab Results 05/01/19 05/01/19 05/01/19 Range/Units 15:47 15:47 16:18 WBC 5.3 (4.5-11.0) K/mm3 RBC 3.63 L (3.65-5.03) M/mm3 Hgb 11.1 (10.1-14.3) gm/dl Hct 33.9 (30.3-42.9) % MCV 93 (79-97) fl MCH 31 (28-32) pg MCHC 33 (30-34) % RDW 18.0 H (13.2-15.2) % Plt Count 263 (140-440) K/mm3 Lymph % (Auto) Personal Lines Sales Executive Christian % (Auto) Personal [employer] Sales Executive Eos % (Auto) Personal [employer] Sales Executive Baso % (Auto) Personal [employer] Sales Executive Lymph # [employer] Executive Christian # Personal [employer] Executive Eos # Personal [employer] Sales Executive Baso # Personal [employer] Sales Executive Seg Neutrophils % Personal [employer] Sales Executive Seg Neutrophils # Personal [employer] Sales Executive Sodium 135 L (137-145) mmol/L Potassium 4.3 (3.6-5.0) mmol/L Chloride 95.6 L (98-107) mmol/L Carbon Dioxide 28 (22-30) mmol/L Anion Gap 16 mmol/L BUN 21 H (7-17) mg/dL Creatinine 0.5 L (0.7-1.2) mg/dL Estimated GFR > 60 ml/min BUN/Creatinine Ratio 42 % Glucose 90 (65-100) mg/dL Lactic Acid (0.7-2.0) mmol/L Calcium 9.1 (8.4-10.2) mg/dL Urine Color Yellow (Yellow) Urine Turbidity Slightly-cloudy (Clear) Urine pH 5.0 (5.0-7.0) Ur Specific [place] 1.018 (1.003-1.030) Urine Protein <15 mg/dl (Negative) mg/dL Urine Glucose (UA) Neg (Negative) mg/dL Urine Ketones Neg (Negative) mg/dL Urine Blood Neg (Negative) Urine Nitrite Pos (Negative) Urine Bilirubin Neg (Negative) Urine Urobilinogen < 2.0 (<2.0) mg/dL Ur Leukocyte Esterase Neg (Negative) Urine WBC (Auto) 2.0 (0.0-6.0) /HPF Urine RBC (Auto) 2.0 (0.0-6.0) /HPF U Epithel Cells (Auto) 1.0 (0-13.0) /HPF Urine Bacteria (Auto) 2+ (Negative) /HPF Urine Mucus Few /HPF 05/01/19 05/01/19 Range/Units 17:00 19:27 WBC (4.5-11.0) K/mm3 RBC (3.65-5.03) M/mm3 Hgb (10.1-14.3) gm/dl Hct (30.3-42.9) % MCV (79-97) fl MCH (28-32) pg MCHC (30-34) % RDW (13.2-15.2) % Plt Count (140-440) K/mm3 Lymph % (Auto) Christian % (Auto) Eos % (Auto) Baso % (Auto) Lymph # Christian # Eos # Baso # Seg Neutrophils % Seg Neutrophils # Sodium (137-145) mmol/L Potassium (3.6-5.0) mmol/L Chloride (98-107) mmol/L Carbon Dioxide (22-30) mmol/L Anion Gap mmol/L BUN (7-17) mg/dL Creatinine (0.7-1.2) mg/dL Estimated GFR ml/min BUN/Creatinine Ratio % Glucose (65-100) mg/dL Lactic Acid 1.80 0.90 (0.7-2.0) mmol/L Calcium (8.4-10.2) mg/dL Urine Color (Yellow) Urine Turbidity (Clear) Urine pH (5.0-7.0) Ur Specific [place] (1.003-1.030) Urine Protein (Negative) mg/dL Urine Glucose (UA) (Negative) mg/dL Urine Ketones (Negative) mg/dL Urine Blood (Negative) Urine Nitrite (Negative) Urine Bilirubin (Negative) Urine Urobilinogen (<2.0) mg/dL Ur Leukocyte Esterase (Negative) Urine WBC (Auto) (0.0-6.0) /HPF Urine RBC (Auto) (0.0-6.0) /HPF U Epithel Cells (Auto) (0-13.0) /HPF Urine Bacteria (Auto) (Negative) /HPF Urine Mucus /HPF - EKG Data -: EKG Interpreted by Me - EKG Data Interpretation: other (atrial flutter on EKG) - Radiology Data Radiology results: report reviewed - Medical Decision Making Cardizem was held on the patient because of concerns of hypotension and with a heart rate only been 110 there was concern that the elevated heart rate to be secondary to sepsis. This protocol initiated labs returned showing positive nitrites in the urine Critical care attestation.: If time is entered above; I have spent that time in minutes in the direct care of this critically ill patient, excluding procedure time. ED Disposition Clinical Impression: Altered mental status Disposition: DC-01 TO HOME OR SELFCARE Is pt being admited?: Yes Does the pt Need Aspirin: No Condition: Fair Referrals: [facility] ANDREA [Primary Care Provider] - 3-5 Days - Assessment Assessment Interval: Baseline - Level of Consciousness 1a. Level of Consciousness: alert/keenly responsive - LOC Questions 1b. LOC Questions: answers both correctly - LOC Command 1c. LOC Commands: performs tasks correctly - Best Gaze 2. Best Gaze: normal - Visual 3. Visual: no visual loss - Facial Palsy 4. Facial Palsy: normal symmetrical movement - Motor Arm 5a. Motor Arm Left: no drift 5b. Motor Arm Right: no drift - Motor Leg 6a. Motor Leg Left: no drift 6b. Motor Leg Right: no drift - Limb Ataxia 7. Limb Ataxia: absent - Sensory 8. Sensory: normal - Best Language 9. Best Language: no aphasia - Dysarthria 10. Dysarthria: normal - Extinction and Inattention 11. Extinction/Inattention: no abnormality - Scoring Total Score: 0 Stroke Severity: No Stroke Symptoms
[2019-05-01 16:38] LABS: BUN/Creatinine Ratio 42; Blood Urea Nitrogen 21 mg/dL (7-17); Calcium 9.1 mg/dL (8.4-10.2); Hemolysis Index 4
[2019-05-01 16:52] LABS: Bacteria,Urine 2+ /HPF (Negative); Bilirubin,Urine NEG (Negative); Blood,Urine NEG (Negative); Color,Urine Yellow (Yellow); Mucus,Urine FEW /HPF; Protein,Urine <15 mg/dL mg/dL (Negative); Urobilinogen,Urine < 2.0 mg/dL (<2.0)
[2019-05-01] MEDS: MAXIPIME/NS 2 GM/100 ML 2 GM/100 ML BAG IV SCH (17:58)
--- NOTE | 2019-05-01 18:10 | Cat Scan Report ---
CT head/brain wo con INDICATION: AMS. TECHNIQUE: Routine CT head without contrast. Sagittal and coronal reformatted images were obtained. A ll CT scans at this location are performed using CT dose reduction for ALARA by means of automated ex posure control. COMPARISON: CT scan from 02/22/2019 FINDINGS: BRAIN / INTRACRANIAL CONTENTS: No acute hemorrhage, mass effect, midline shift, hydrocephalus, or acu te, large territorial infarct. No chronic infarct or focal atrophy. Normal brain volume and ventricul ar/sulcal size for age. Periventricular low density areas are seen around atria of the lateral ventri cles. This remains unchanged. CRANIOCERVICAL JUNCTION: No significant abnormality. ORBITS: No significant abnormality of visualized orbits. SINUSES / MASTOIDS: No significant abnormality of the visualized paranasal sinuses or mastoid air omer ls. ADDITIONAL FINDINGS: None. IMPRESSION: I do not see an acute parenchymal lesion in the brain. Signer Name: Gurwinder Rios MD Signed: 05/01/2019 6:05 PM Workstation Name: [id number]
[2019-05-01] MEDS ORDERED: TYLENOL PO PRN (22:04)
[2019-05-01] MEDS ORDERED: ZOFRAN IV PRN (22:04)
[2019-05-01] MEDS ORDERED: SODIUM CHLORIDE FLUSH SYRINGE 10 ML IV PRN (22:04)
--- NOTE | 2019-05-01 22:47 | XRay Report ---
CHEST 1 VIEW INDICATION / CLINICAL INFORMATION: Altered mental status. COMPARISON: Chest radiograph 04/23/2019 FINDINGS: SUPPORT DEVICES: Stable, satisfactory device positioning. HEART / MEDIASTINUM: Stable. LUNGS / PLEURA: Hyperinflated lungs with diffuse prominence of interstitial markings. No significant change. No pneumothorax. ADDITIONAL FINDINGS: No significant additional findings. IMPRESSION: 1. No significant change. Signer Name: Ti Payne MD Signed: 05/01/2019 10:43 PM Workstation Name: [id number]
[2019-05-01] MEDS ORDERED: NACL 0.9% 1000 ML 1,000 ML IV SCH (23:45)
--- NOTE | 2019-05-02 00:08 | History and Physical Report ---
History of Present Illness Date of examination: 05/01/19 Date of admission: 05/01/19 22:05 Chief complaint: AMS History of present illness: 69 -year-old female who is a current resident at [facility] with history of hypertension, mixed systolic heart failure, chronic severe debility, history of frequent falls with Left hip fracture s/p IM nail of left hip/femur (03/2018), coronary artery disease, A. fib , coagulated on Eliquis, depression , 6 mm lung nodule (seen on CTA Chest 04/23/2019) who presents to [facility] ED via EMS with complaints of altered mental status. Patient is confused and unable to provide history. Patient was found to be hypotensive with blood pressure 96/58 and tachycardic with heart rate of 110bpm. A review of record shows patient had multiple admissions within the past 4 months. Her most recent admission was for acute sedation heart failure. Also has history of multiple falls. Past History Past Medical History: atrial fib (on Eliquis), CAD, heart failure (systolic), hypertension, other (6mm lung nodule, depression, hx falls ) Past Surgical History: CABG, total hip replacement (left hip), Other (AICD) Social history: other (resides in [facility]) Family history: hypertension Medications and Allergies Allergies Allergy/AdvReac Type Severity Reaction Status Date / Time atorvastatin [From Lipitor] Allergy Unknown Verified 02/22/19 18:11 metoclopramide [From Reglan] Allergy Unknown Verified 02/22/19 21:06 promethazine [From Phenergan] Allergy Unknown Verified 02/22/19 21:06 Home Medications Medication Instructions Recorded Confirmed Last Taken Type Apixaban [Eliquis] 2.5 mg PO BID #30 tablet 03/20/19 05/01/19 05/01/19 Rx Metoprolol [Lopressor TAB] 12.5 mg PO BID #60 tablet 03/20/19 05/01/19 05/01/19 Rx oxyCODONE /ACETAMINOPHEN [Percocet 1 tab PO Q8H PRN #14 tablet 04/26/19 05/01/19 05/01/19 Rx 5/325 mg] Active Meds: Active Medications Acetaminophen (Tylenol) 650 mg PO Q4H PRN PRN Reason: Pain MILD(1-3)/Fever >100.5/DUPREE Apixaban (Eliquis) 2.5 mg PO BID JESSICA; Protocol Docusate Sodium (Colace) 100 mg PO BID JESSICA Cefepime HCl (Maxipime/Ns 2 Gm/100 Ml) 2 gm in 100 mls @ 200 mls/hr IV Q12HR JESSICA; Protocol Last Admin: 05/01/19 17:58 Dose: 200 mls/hr Documented by: Ceftriaxone Sodium (Rocephin/Ns 1 Gm/50 Ml) 1 gm in 50 mls @ 100 mls/hr IV Q24HR JESSICA; Protocol Sodium Chloride (Nacl 0.9% 1000 Ml) 1,000 mls @ 42 mls/hr IV DIRECT JESSICA Stop: 05/02/19 12:00 Metoprolol Tartrate (Lopressor) 12.5 mg PO BID JESSICA Ondansetron HCl (Zofran) 4 mg IV Q8H PRN PRN Reason: Nausea And Vomiting Oxycodone/Acetaminophen (Percocet 5/325) 1 tab PO Q6H PRN PRN Reason: Pain, Moderate (4-6) Sodium Chloride (Sodium Chloride Flush Syringe 10 Ml) 10 ml IV BID JESSICA Sodium Chloride (Sodium Chloride Flush Syringe 10 Ml) 10 ml IV PRN PRN PRN Reason: LINE FLUSH Review of Systems ROS unobtainable: due to mental status Exam - Physical Exam Narrative exam: Physical exam General appearance: Present: No acute distress, lethargic, oriented to self, chronically ill appearing in older adults - EENT Eyes: Present: PERRL, EOM intact ENT: hearing intact, no dentition - Neck Neck: Present: supple, normal ROM - Respiratory Respiratory effort: Non-labored and supplemental oxygen Respiratory: bilateral: diminished (bases) - Cardiovascular Heart rate:94 (bpm) Rhythm: regular Heart Sounds: Present: S1 & S2. Absent: rub, click - Extremities Extremities: no ischemia, pulses intact, abnormal - Peripheral Assessment Peripheral Pulses: within normal limits - Abdominal General gastrointestinal: soft, non-tender, normal bowel sounds - Integumentary Integumentary: Present: warm, dry, pale, right knee skin tear, sacral pressure ulcer - Musculoskeletal Musculoskeletal: generalized weakness - Psychiatric Psychiatric: Unable to assess - Constitutional Vitals: Temp Pulse Resp BP Pulse Ox 97.7 F 112 H 16 100/54 98 05/01/19 19:15 05/01/19 22:30 05/01/19 21:00 05/01/19 22:30 05/01/19 22:30 Results - Labs CBC & Chem 7: 05/01/19 15:47 05/01/19 15:47 Labs: Laboratory Last Values WBC 5.3 K/mm3 (4.5-11.0) 05/01/19 15:47 RBC 3.63 M/mm3 (3.65-5.03) L 05/01/19 15:47 Hgb 11.1 gm/dl (10.1-14.3) 05/01/19 15:47 Hct 33.9 % (30.3-42.9) 05/01/19 15:47 MCV 93 fl (79-97) 05/01/19 15:47 MCH 31 pg (28-32) 05/01/19 15:47 MCHC 33 % (30-34) 05/01/19 15:47 RDW 18.0 % (13.2-15.2) H 05/01/19 15:47 Plt Count 263 K/mm3 (140-440) 05/01/19 15:47 Lymph % (Auto) Tuck Pointer Helper 05/01/19 15:47 [place] % (Auto) Tuck Pointer Helper 05/01/19 15:47 Eos % (Auto) Tuck Pointer Helper 05/01/19 15:47 Baso % (Auto) Tuck Pointer Helper 05/01/19 15:47 Lymph # Tuck Pointer Helper 05/01/19 15:47 [place] # Tuck Pointer Helper 05/01/19 15:47 Eos # Tuck Pointer Helper 05/01/19 15:47 Baso # Tuck Pointer Helper 05/01/19 15:47 Seg Neutrophils % Tuck Pointer Helper 05/01/19 15:47 Seg Neutrophils # Tuck Pointer Helper 05/01/19 15:47 Sodium 135 mmol/L (137-145) L 05/01/19 15:47 Potassium 4.3 mmol/L (3.6-5.0) 05/01/19 15:47 Chloride 95.6 mmol/L (98-107) L 05/01/19 15:47 Carbon Dioxide 28 mmol/L (22-30) 05/01/19 15:47 16 mmol/L 05/01/19 15:47 BUN 21 mg/dL (7-17) H 05/01/19 15:47 0.5 mg/dL (0.7-1.2) L 05/01/19 15:47 Estimated GFR > 60 ml/min 05/01/19 15:47 42 % 05/01/19 15:47 Glucose 90 mg/dL (65-100) 05/01/19 15:47 Lactic Acid 0.90 mmol/L (0.7-2.0) 05/01/19 19:27 Calcium 9.1 mg/dL (8.4-10.2) 05/01/19 15:47 Yellow (Yellow) 05/01/19 16:18 Slightly-cloudy (Clear) 05/01/19 16:18 5.0 (5.0-7.0) 05/01/19 16:18 Ur Specific [place] 1.018 (1.003-1.030) 05/01/19 16:18 <15 mg/dl mg/dL (Negative) 05/01/19 16:18 Neg mg/dL (Negative) 05/01/19 16:18 Neg mg/dL (Negative) 05/01/19 16:18 Neg (Negative) 05/01/19 16:18 Pos (Negative) 05/01/19 16:18 Neg (Negative) 05/01/19 16:18 < 2.0 mg/dL (<2.0) 05/01/19 16:18 Ur Leukocyte Esterase Neg (Negative) 05/01/19 16:18 2.0 /HPF (0.0-6.0) 05/01/19 16:18 2.0 /HPF (0.0-6.0) 05/01/19 16:18 U Epithel Cells (Auto) 1.0 /HPF (0-13.0) 05/01/19 16:18 2+ /HPF (Negative) 05/01/19 16:18 Few /HPF 05/01/19 16:18 - Imaging and Cardiology Chest x-ray: report reviewed (LUNGS / PLEURA: Hyperinflated lungs with diffuse prominence of interstitial markings. No significant change. No pneumothorax), image reviewed Assessment and Plan Assessment and plan: 69 -year-old female who is a current resident at [facility] with history of hypertension, mixed systolic heart failure, chronic severe debility, history of frequent falls with Left hip fracture s/p IM nail of left hip/femur (03/2018), coronary artery disease, A. fib , coagulated on Eliquis, depression , 6 mm lung nodule (seen on CTA Chest 04/23/2019) who presents to [facility] ED via EMS with complaints of altered mental status. CXR unrevealing for acute pulmonary abnormalities. Acute encephalopathy -No leukocytosis -Afebrile -Tachycardic -Blood cultures pending -Started on IV Abx Hypotension -Hx of HTN -Started on IV hydration 42ml/hr UTI -Urine culture pending -UA positive for nitriates -On IV Rocephin Failure to thrive -Dentition consult pending Severe Debility -Hx hip fracture -S/p IM nail of left hip/femur (03/2018) -PT/OT consult pending Knee pain -skin tear to right knee -Continue supportive care -Pain mgmt Lung nodule -6mm pulmonary nodule seen on CTA Chest done on 04/23/19 -As per guidelines will need [address] Chest 10/2019 Decubitus Ulcer - Scarum -Wound care consult pending Chronic Systolic Congestive heart failure -AICD in situ Hypertension -Monitor BP -Currently hypotensive -Hold all antihypertensive for now A. fib -Anticoagulated on Eliquis -EKG done in ED shows A-flutter -Cardiology consulted DVT PPX -AC on Eliquis Coronary artery disease Depression Advance Directives: No VTE prophylaxis?: Chemical Plan of care discussed with patient/family: Yes
[2019-05-02] MEDS: MAXIPIME/NS 2 GM/100 ML 2 GM/100 ML BAG IV SCH (02:57)
[2019-05-02] MEDS: PERCOCET 5/325 PO PRN ×3 (03:21→17:55)
[2019-05-02 06:18] LABS: Basophils % (Auto) 0.9 % (0.0-1.8); Eosinophils # (Auto) 0.1 K/mm3 (0.0-0.4); Eosinophils % (Auto) 1.5 % (0.0-4.3); Hematocrit 30.8 % (30.3-42.9); Hemoglobin 10.4 gm/dl (10.1-14.3); Lymphocytes # (Auto) 1.4 K/mm3 (1.2-5.4); Lymphocytes % (Auto) 32.3 % (13.4-35.0); Mean Corpuscular HGB Conc 34 % (30-34); Mean Corpuscular Volume 93 fl (79-97); Monocytes # (Auto) 0.4 K/mm3 (0.0-0.8); Monocytes % (Auto) 8.6 % (0.0-7.3); Platelet Count 268 K/mm3 (140-440); Red Blood Count 3.31 M/mm3 (3.65-5.03); Red Cell Distribution Width 18.1 % (13.2-15.2)
[2019-05-02 06:34] LABS: BUN/Creatinine Ratio 53; Blood Urea Nitrogen 16 mg/dL (7-17); Hemolysis Index 6
--- NOTE | 2019-05-02 08:33 | Consultation ---
<ARTI CHRISTINA - Last Filed: 05/02/19 09:57> History of Present Illness Consult date: 05/02/19 Consult reason: atrial fibrillation History of present illness: This is a frail 69 year old woman with multiple medical problems. She has a history of ischemic cardiomyopathy, coronary artery disease, valvular disease and is status post single vessel bypass grafting with mitral valve repair and tricuspid valve repair. An echocardiogram done 2 months ago reports a mild to moderate decrease left ventricular systolic function, ejection fraction 35-40%. She has persistent atrial fibrillation/flutter with prior MAZE procedure and is on low dose for oral anticoagulation. She also has a pacemaker implant for history of sick sinus syndrome. Patient was sent to this hospital and admitted with altered mental status and hypotension. There were no complaints of chest pain and shortness of breath. Chest x-ray reports hyperinflated lungs with diffuse prominence of interstitial markings. Head CT reports no acute intrancranial abnormalities. Her EKG is atrial flutter with a well controlled ventricular rate. Past History Past Medical History: atrial fib (on Eliquis), CAD, heart failure (systolic), hypertension, other (6mm lung nodule, depression, hx falls ) Past Surgical History: CABG, total hip replacement (left hip), Other (AICD) Social history: other (resides in [facility]) Family history: hypertension Medications and Allergies Allergies Allergy/AdvReac Type Severity Reaction Status Date / Time atorvastatin [From Lipitor] Allergy Unknown Verified 02/22/19 18:11 metoclopramide [From Reglan] Allergy Unknown Verified 02/22/19 21:06 promethazine [From Phenergan] Allergy Unknown Verified 02/22/19 21:06 Home Medications Medication Instructions Recorded Confirmed Last Taken Type Apixaban [Eliquis] 2.5 mg PO BID #30 tablet 03/20/19 05/01/19 05/01/19 Rx Metoprolol [Lopressor TAB] 12.5 mg PO BID #60 tablet 03/20/19 05/01/19 05/01/19 Rx oxyCODONE /ACETAMINOPHEN [Percocet 1 tab PO Q8H PRN #14 tablet 04/26/19 05/01/19 05/01/19 Rx 5/325 mg] Active Meds: Active Medications Acetaminophen (Tylenol) 650 mg PO Q4H PRN PRN Reason: Pain MILD(1-3)/Fever >100.5/DUPREE Apixaban (Eliquis) 2.5 mg PO BID JESSICA; Protocol Docusate Sodium (Colace) 100 mg PO BID JESSICA Ceftriaxone Sodium (Rocephin/Ns 1 Gm/50 Ml) 1 gm in 50 mls @ 100 mls/hr IV Q24HR JESSICA; Protocol Sodium Chloride (Nacl 0.9% 1000 Ml) 1,000 mls @ 42 mls/hr IV DIRECT JESSICA Stop: 05/02/19 12:00 Last Admin: 05/02/19 03:00 Dose: 42 mls/hr Documented by: Metoprolol Tartrate (Lopressor) 12.5 mg PO BID JESSICA Ondansetron HCl (Zofran) 4 mg IV Q8H PRN PRN Reason: Nausea And Vomiting Oxycodone/Acetaminophen (Percocet 5/325) 1 tab PO Q6H PRN PRN Reason: Pain, Moderate (4-6) Last Admin: 05/02/19 03:21 Dose: 1 tab Documented by: Sodium Chloride (Sodium Chloride Flush Syringe 10 Ml) 10 ml IV BID [facility] Sodium Chloride (Sodium Chloride Flush Syringe 10 Ml) 10 ml IV PRN PRN PRN Reason: LINE FLUSH Physical Examination Vital Signs Temp Pulse Resp BP Pulse Ox 98.2 F 98 H 16 100/62 100 05/01/19 15:14 05/01/19 15:14 05/01/19 15:14 05/01/19 15:14 05/01/19 15:14 General appearance: no acute distress Cardiac: Positive: irregularly irregular Lungs: Positive: Decreased Breath Sounds Neuro: Positive: Weakness Extremities: Absent: edema Results 05/02/19 05:28 05/02/19 05:28 CBC 05/01/19 05/02/19 Range/Units 15:47 05:28 WBC 5.3 4.4 L (4.5-11.0) K/mm3 RBC 3.63 L 3.31 L (3.65-5.03) M/mm3 Hgb 11.1 10.4 (10.1-14.3) gm/dl Hct 33.9 30.8 (30.3-42.9) % Plt Count 263 268 (140-440) K/mm3 Lymph # Pharmacovigilance Scientist 1.4 [place] # Pharmacovigilance Scientist 0.4 Eos # Pharmacovigilance Scientist 0.1 Baso # Pharmacovigilance Scientist 0.0 Comprehensive Metabolic Panel 05/01/19 05/02/19 Range/Units 15:47 05:28 Sodium 135 L 143 D (137-145) mmol/L Potassium 4.3 4.2 (3.6-5.0) mmol/L Chloride 95.6 L 103.4 (98-107) mmol/L Carbon Dioxide 28 30 (22-30) mmol/L BUN 21 H 16 (7-17) mg/dL Creatinine 0.5 L 0.3 L (0.7-1.2) mg/dL Glucose 90 85 (65-100) mg/dL Calcium 9.1 9.0 (8.4-10.2) mg/dL Assessment and Plan Altered mental status Hx coronary artery disease with single vessel bypass grafting Hx of mitral valve repair Hx of tricuspid valve repair Hx of Ischemic Cardiomyopathy EF 35-40% by echo 02/2019 Persistent atrial fibrillation with prior MAZE procedure on low dose for oral anticoagulation. Hx of sick sinus syndrome s/p PPM Recommendations: Continue low dose metoprolol and low dose eliquis for persistent atrial fibrilla tion. Medical therapy for underlying coronary artery disease and ischemic cardiomyopathy as tolerated. Otherwise, conservative cardiac management. We will follow intermittently. <NITHYA SILVA - Last Filed: 05/02/19 20:26> Medications and Allergies Active Meds: Active Medications Acetaminophen (Tylenol) 650 mg PO Q4H PRN PRN Reason: Pain MILD(1-3)/Fever >100.5/DUPREE Apixaban (Eliquis) 2.5 mg PO BID [facility]; Protocol Last Admin: 05/02/19 09:21 Dose: 2.5 mg Documented by: Docusate Sodium (Colace) 100 mg PO BID [facility] Last Admin: 05/02/19 09:22 Dose: 100 mg Documented by: Ceftriaxone Sodium (Rocephin/Ns 1 Gm/50 Ml) 1 gm in 50 mls @ 100 mls/hr IV Q24HR [facility]; Protocol Last Admin: 05/02/19 09:22 Dose: 100 mls/hr Documented by: Metoprolol Tartrate (Lopressor) 12.5 mg PO BID [facility] Last Admin: 05/02/19 09:22 Dose: 12.5 mg Documented by: Ondansetron HCl (Zofran) 4 mg IV Q8H PRN PRN Reason: Nausea And Vomiting Oxycodone/Acetaminophen (Percocet 5/325) 1 tab PO Q6H PRN PRN Reason: Pain, Moderate (4-6) Last Admin: 05/02/19 17:55 Dose: 1 tab Documented by: Sodium Chloride (Sodium Chloride Flush Syringe 10 Ml) 10 ml IV BID JESSICA Last Admin: 05/02/19 09:23 Dose: Not Given Documented by: Sodium Chloride (Sodium Chloride Flush Syringe 10 Ml) 10 ml IV PRN PRN PRN Reason: LINE FLUSH Physical Examination Vital Signs Temp Pulse Resp BP Pulse Ox 98.2 F 98 H 16 100/62 100 05/01/19 15:14 05/01/19 15:14 05/01/19 15:14 05/01/19 15:14 05/01/19 15:14 Results 05/02/19 05:28 05/02/19 05:28 CBC 05/02/19 Range/Units 05:28 WBC 4.4 L (4.5-11.0) K/mm3 RBC 3.31 L (3.65-5.03) M/mm3 Hgb 10.4 (10.1-14.3) gm/dl Hct 30.8 (30.3-42.9) % Plt Count 268 (140-440) K/mm3 Lymph # 1.4 (1.2-5.4) K/mm3 [place] # 0.4 (0.0-0.8) K/mm3 Eos # 0.1 (0.0-0.4) K/mm3 Baso # 0.0 (0.0-0.1) K/mm3 Comprehensive Metabolic Panel 05/02/19 Range/Units 05:28 Sodium 143 D (137-145) mmol/L Potassium 4.2 (3.6-5.0) mmol/L Chloride 103.4 (98-107) mmol/L Carbon Dioxide 30 (22-30) mmol/L BUN 16 (7-17) mg/dL Creatinine 0.3 L (0.7-1.2) mg/dL Glucose 85 (65-100) mg/dL Calcium 9.0 (8.4-10.2) mg/dL Assessment and Plan I have seen and evaluated the patient and agree with the assessment and plan. The patient has a history of permanent atrial fibrillation, CAD s/p CAVG, and ischemic cardmiomyoapthy with EF 35-40%. REcommend continue rate control strategy for treatment of atrial fibrillation with anticoagulation with eliquis. Cotinue medical therapy for treatment of cAD and ischemic cardiomyopathy with BB, ASA, statin and ACEi.
[2019-05-02] MEDS: ELIQUIS PO SCH ×2 (09:21→21:32)
[2019-05-02] MEDS: COLACE PO SCH ×2 (09:22→21:32)
[2019-05-02] MEDS: ROCEPHIN/NS 1 GM/50 ML 1 GM/50 ML BAG IV SCH (09:22)
[2019-05-02] MEDS: LOPRESSOR PO SCH ×2 (09:22→21:33)
[2019-05-02] MEDS: SODIUM CHLORIDE FLUSH SYRINGE 10 ML IV SCH ×2 (09:23→21:34)
[2019-05-02] MEDS ORDERED: LOVENOX SUB-Q SCH (10:00)
--- NOTE | 2019-05-02 15:51 | Progress Note ---
Assessment and Plan Assessment and plan: 69 -year-old female who is a current resident at [facility] with history of hypertension, mixed systolic heart failure, chronic severe debility, history of frequent falls with Left hip fracture s/p IM nail of left hip/femur (03/2018), coronary artery disease, A. fib , coagulated on Eliquis, depression , 6 mm lung nodule (seen on CTA Chest 04/23/2019) who presents to [facility] ED via EMS with complaints of altered mental status. Patient is confused and unable to provide history. Patient was found to be hypotensive with blood pressure 96/58 and tachycardic with heart rate of 110bpm. A review of record shows patient had multiple admissions within the past 4 months. Her most recent admission was for acute sedation heart failure. Also has history of multiple falls. Metabolic encephalopathy - patient's mentation improved Hypotension - resolved patient was empirically on Rocephin - I didn't see any source of infection - I will discontinue Need PT evaluation Disposition; possible DC tomorrow if continue to improve. History Interval history: Patient was seen and evaluated this morning, Patient was alert and oriented. Hospitalist Physical - Physical exam Narrative exam: Not in cardiopulmonary distress. The patient appeared well nourished and normally developed. Vital signs as documented. Head exam is unremarkable. No scleral icterus . Neck is without jugular venous distension, thyromegaly, or carotid bruits. Lungs are clear to auscultation. Cardiac exam reveals regular rate and Rhythm. Abdominal exam reveals normal bowel sounds. Extremities are nonedematous and both femoral and pedal pulses are normal. CHRISTIAN EDUCATION DIRECTOR: Alert and oriented 3. No focal weakness. - Constitutional Vitals: Temp Pulse Resp BP Pulse Ox 98.2 F 89 18 94/58 100 05/02/19 13:38 05/02/19 15:00 05/02/19 15:00 05/02/19 13:38 05/02/19 15:00 General appearance: Present: no acute distress Results - Labs CBC & Chem 7: 05/02/19 05:28 05/02/19 05:28 Labs: Laboratory Last Values WBC 4.4 K/mm3 (4.5-11.0) L 05/02/19 05:28 RBC 3.31 M/mm3 (3.65-5.03) L 05/02/19 05:28 Hgb 10.4 gm/dl (10.1-14.3) 05/02/19 05:28 Hct 30.8 % (30.3-42.9) 05/02/19 05:28 MCV 93 fl (79-97) 05/02/19 05:28 MCH 32 pg (28-32) 05/02/19 05:28 MCHC 34 % (30-34) 05/02/19 05:28 RDW 18.1 % (13.2-15.2) H 05/02/19 05:28 Plt Count 268 K/mm3 (140-440) 05/02/19 05:28 Lymph % (Auto) 32.3 % (13.4-35.0) 05/02/19 05:28 [place] % (Auto) 8.6 % (0.0-7.3) H 05/02/19 05:28 Eos % (Auto) 1.5 % (0.0-4.3) 05/02/19 05:28 Baso % (Auto) 0.9 % (0.0-1.8) 05/02/19 05:28 Lymph # 1.4 K/mm3 (1.2-5.4) 05/02/19 05:28 [place] # 0.4 K/mm3 (0.0-0.8) 05/02/19 05:28 Eos # 0.1 K/mm3 (0.0-0.4) 05/02/19 05:28 Baso # 0.0 K/mm3 (0.0-0.1) 05/02/19 05:28 Seg Neutrophils % 56.7 % (40.0-70.0) 05/02/19 05:28 Seg Neutrophils # 2.5 K/mm3 (1.8-7.7) 05/02/19 05:28 Sodium 143 mmol/L (137-145) D 05/02/19 05:28 Potassium 4.2 mmol/L (3.6-5.0) 05/02/19 05:28 Chloride 103.4 mmol/L (98-107) 05/02/19 05:28 Carbon Dioxide 30 mmol/L (22-30) 05/02/19 05:28 14 mmol/L 05/02/19 05:28 BUN 16 mg/dL (7-17) 05/02/19 05:28 0.3 mg/dL (0.7-1.2) L 05/02/19 05:28 Estimated GFR > 60 ml/min 05/02/19 05:28 53 % 05/02/19 05:28 Glucose 85 mg/dL (65-100) 05/02/19 05:28 Lactic Acid 0.90 mmol/L (0.7-2.0) 05/01/19 19:27 Calcium 9.0 mg/dL (8.4-10.2) 05/02/19 05:28 Yellow (Yellow) 05/01/19 16:18 Slightly-cloudy (Clear) 05/01/19 16:18 5.0 (5.0-7.0) 05/01/19 16:18 Ur Specific [place] 1.018 (1.003-1.030) 05/01/19 16:18 <15 mg/dl mg/dL (Negative) 05/01/19 16:18 Neg mg/dL (Negative) 05/01/19 16:18 Neg mg/dL (Negative) 05/01/19 16:18 Neg (Negative) 05/01/19 16:18 Pos (Negative) 05/01/19 16:18 Neg (Negative) 05/01/19 16:18 < 2.0 mg/dL (<2.0) 05/01/19 16:18 Ur Leukocyte Esterase Neg (Negative) 05/01/19 16:18 2.0 /HPF (0.0-6.0) 05/01/19 16:18 2.0 /HPF (0.0-6.0) 05/01/19 16:18 U Epithel Cells (Auto) 1.0 /HPF (0-13.0) 05/01/19 16:18 2+ /HPF (Negative) 05/01/19 16:18 Few /HPF 05/01/19 16:18 Active Medications - Current Medications Current Medications: Generic Name Dose Route Start Last Admin Trade Name Freq PRN Reason Stop Dose Admin Acetaminophen 650 mg 05/01/19 22:04 Tylenol PO Q4H PRN Pain MILD(1-3)/Fever >100.5/DUPREE Apixaban 2.5 mg 05/02/19 10:00 05/02/19 09:21 Eliquis PO 2.5 mg BID JESSICA Administration Protocol Docusate Sodium 100 mg 05/02/19 10:00 05/02/19 09:22 Colace PO 100 mg BID JESSICA Administration Ceftriaxone Sodium 1 gm in 50 mls @ 100 mls/hr 05/02/19 10:00 05/02/19 09:22 Rocephin/Ns 1 Gm/50 Ml IV 100 mls/hr Q24HR JESSICA Administration Protocol Metoprolol Tartrate 12.5 mg 05/02/19 10:00 05/02/19 09:22 Lopressor PO 12.5 mg BID JESSICA Administration Ondansetron HCl 4 mg 05/01/19 22:04 Zofran IV Q8H PRN Nausea And Vomiting Oxycodone/Acetaminophen 1 tab 05/01/19 22:04 05/02/19 09:30 Percocet 5/325 PO 1 tab Q6H PRN Administration Pain, Moderate (4-6) Sodium Chloride 10 ml 05/02/19 10:00 05/02/19 09:23 Sodium Chloride Flush Syringe 10 Ml IV Not Given BID JESSICA Sodium Chloride 10 ml 05/01/19 22:04 Sodium Chloride Flush Syringe 10 Ml IV PRN PRN LINE FLUSH Nutrition/Malnutrition Assess - Dietary Evaluation Nutrition/Malnutrition Findings: Nutrition Notes Start: 05/02/19 15:29 Freq: Status: Active Protocol: Document 05/02/19 15:29 ELMO (Rec: 05/02/19 15:41 ELMO [id number]) Nutrition Notes Need for Assessment generated from: MD Order,barrel drum cutter,MST,Low BMI Initial or Follow up Assessment Current Diagnosis Decubitus(Pressure Ulcer), Heart Failure Other Pertinent Diagnosis SIRS, FTT, Dehydration, Hypotension Current Diet Cardiac Labs/Tests Reviewed Pertinent Medications Reviewed Height 5 ft 5 in Weight 42.184 kg Usual Body Weight 59.09 kg [place] Body Weight (kg) 56.81 BMI 15.5 Intake Prior to Admission Poor Weight change and time frame Pt reports unintentional 28.6% wt loss over past yr Weight Status Underweight Subjective/Other Information RD consulted for malnutrition. Pt also screened for low BMI , malnutrition and skin risks (Horace score: 15). She is from a [place]. She reports fair appetite and drinks ONS at [place]. She reports no chewing and swallowing difficulties. Pt verbalizes several food preferences. Burn Absent Trauma Absent GI Symptoms None Food Allergy No Skin Integrity/Comment Horace score: 15 Current % PO Poor (25-49%) Minimum of two criteria Yes Energy Intake (severe) < or equal to 50% Estimated Energy Requirement > or equal to 5 days Interpretation of Weight Loss (severe) > 20% in 1 year Body Fat Depletion Moderate depletion (severe) Muscle Mass Moderate Depletion (severe) Protein-Calorie Malnutrition Severe Nutrition Diagnosis Malnutrition Etiology chronic illness As Evidenced by Signs and Symptoms unintentional wt loss, poor PO intake, subcutaneous fat loss , BMI 15.5 Is patient on ventilator? No Is Patient Ambulatory and/or Out of Bed No [facility]) 1137.468 Kcal/Kg value to use for calculation 38 Approximate Energy Requirements Using 1603 kcal/Kg Calculation Used for Recommendations Kcal/kg Additional Notes Pro needs 1.25-1.5g/k-63g /day Fluid needs 1ml/kcal Nutrition Intervention Change Diet Order: Continue current diet order; honor food preferences Add Supplement/Snack (indicate name/kcal Ensure Enlive TID (vanilla) /protein ) Provides kCal: 1,050 Provides Protein (gm) 60 Education Handouts Provided Malnutrition D/C educational handout left with pt Goal #1 PO intake of meals plus ONS to meet 100% energy and pro needs Goal #2 Wt maintenance and/or gain Goal #3 Wound healing Anticipated Discharge Needs: Continue one bottle Ensure Enlive (or equivalent) 2-3 times daily for wt maintenance Follow-Up By: 05/05/19 Additional Comments F/U: intakes (meals, ONS)
[2019-05-02 16:46] LABS: Amphetamine Screen,Urine PRESUMPTIVE NEGATIVE; Benzodiazepines Screen,Urine PRESUMPTIVE NEGATIVE; Cannabinoid Screen,Urine PRESUMPTIVE NEGATIVE; Cocaine Screen,Urine PRESUMPTIVE NEGATIVE; Methadone Screen,Urine PRESUMPTIVE NEGATIVE; Opiate Screen,Urine PRESUMPTIVE NEGATIVE
[2019-05-02 16:49] LABS: Bacteria,Urine 4+ /HPF (Negative); Bilirubin,Urine NEG (Negative); Blood,Urine NEG (Negative); Color,Urine Yellow (Yellow); Mucus,Urine 3+ /HPF; Protein,Urine <15 mg/dL mg/dL (Negative); Urobilinogen,Urine < 2.0 mg/dL (<2.0)
[2019-05-03] MEDS: PERCOCET 5/325 PO PRN ×2 (01:42→09:21)
--- NOTE | 2019-05-03 09:09 | Discharge Summary ---
Providers - Providers Date of Admission: 05/01/19 22:05 Attending physician: VERONICA PRIETO MD 05/01/19 22:10 Consult to Wound/ET Nurse [CONS] Routine Reason For Exam: wound eval Physical Therapy Evaluation and Treat [CONS] Routine Comment: Reason For Exam: hx of recent falls, debility 05/01/19 22:11 Occupational Therapy Evaluate and Treat [CONS] Routine Comment: Reason For Exam: hx of falls, debility 05/01/19 22:12 Consult to Dietitian/Nutrition [CONS] Routine Physician Instructions: Reason For Exam: Reason for Consult: Malnutrition 05/02/19 00:14 Consult to Physician [CONS] Routine Comment: DELLA Consulting Provider: JEAN-CLAUDE BENSON Physician Instructions: SOTEROSHAISTA WAS NOTIFIED Reason For Exam: a-flutter, tachy, hx a fib on Eliquis, CAD and HF 05/02/19 10:19 Physical Therapy Evaluation and Treat [CONS] Stat Comment: Reason For Exam: Evaluate for safe return home [facility]: [facility] Hospital[facility] Reason for admission: metabolic encepahlopathy, UTI Condition: Stable Hospital course: 69 -year-old female who is a current resident at [facility] with history of hypertension, mixed systolic heart failure, chronic severe debility, history of frequent falls with Left hip fracture s/p IM nail of left hip/femur (03/2018), coronary artery disease, A. fib , coagulated on Eliquis, depression , 6 mm lung nodule (seen on CTA Chest 04/23/2019) who presents to [facility] ED via EMS with complaints of altered mental status. Patient is confused and unable to provide history. Patient was found to be hypotensive with blood pressure 96/58 and tachycardic with heart rate of 110bpm. A review of record shows patient had multiple admissions within the past 4 months. Her most recent admission was for acute sedation heart failure. Also has history of multiple falls. Patient was admitted to the floor and w/u was unremarkable except UTI. Patient was treated with antibiotics. Patient was alert and orinted and discharged back to SNF. Patient was hemodynamically stable at the time of discharge. Hypotension was corrected. Disposition: [id number]/[place]-03 SNF W [facility] CERT Time spent for discharge: 32 minutes - Discharge Diagnoses (1) UTI (urinary tract infection) Status: Acute (2) Altered mental status Status: Acute (3) Failure to thrive Status: Acute Core Measure Documentation - Palliative Care Palliative Care/ Comfort Measures: Not Applicable - Core Measures Any of the following diagnoses?: none Exam - Physical Exam Narrative exam: Not in cardiopulmonary distress. The patient appeared well nourished and normally developed. Vital signs as documented. Head exam is unremarkable. No scleral icterus . Neck is without jugular venous distension, thyromegaly, or carotid bruits. Lungs are clear to auscultation. Cardiac exam reveals regular rate and Rhythm. Abdominal exam reveals normal bowel sounds. Extremities are nonedematous and both femoral and pedal pulses are normal. ENGINE BUILDUP MECHANIC: Alert and oriented 3. No focal weakness. - Constitutional Vitals: Temp Pulse Resp BP Pulse Ox 98.4 F 113 H 18 112/73 98 05/03/19 07:36 05/03/19 07:36 05/03/19 07:36 05/03/19 07:36 05/03/19 07:36 Plan Activity: no restrictions Weight Bearing Status: Full Weight Bearing Diet: regular Follow up with: KATELIN BLOOM MD [Primary Care Provider] - 3-5 Days Prescriptions: cephALEXin [Keflex] 500 mg PO Q8HR #15 cap
[2019-05-03] MEDS: SODIUM CHLORIDE FLUSH SYRINGE 10 ML IV SCH (09:16)
[2019-05-03] MEDS: ROCEPHIN/NS 1 GM/50 ML 1 GM/50 ML BAG IV SCH (09:16)
[2019-05-03] MEDS: ELIQUIS PO SCH (09:16)
[2019-05-03] MEDS: COLACE PO SCH (09:16)
[2019-05-03] MEDS: LOPRESSOR PO SCH (09:17)
[2019-05-03 14:25] VITALS: BP 96/64
== END 2019-05-03 14:50 | DRG 314 ==
LOC: ED 14:55 → 2B-ACE 22:05
PROVIDERS: ADMIT Internal Medicine; ATTEND Internal Medicine
DX: I95.9 Hypotension, unspecified (principal); G93.41 Metabolic encephalopathy; I50.22 Chronic systolic (congestive) heart failure; R65.10 Systemic inflammatory response syndrome (SIRS) of non-infectious origin without acute organ dysfunction; I11.0 Hypertensive heart disease with heart failure; I48.91 Unspecified atrial fibrillation; R62.7 Adult failure to thrive; L89.152 Pressure ulcer of sacral region, stage 2; I25.10 Atherosclerotic heart disease of native coronary artery without angina pectoris; F32.9 Major depressive disorder, single episode, unspecified; E86.0 Dehydration; R91.1 Solitary pulmonary nodule; Z96.642 Presence of left artificial hip joint; M25.561 Pain in right knee; K21.9 Gastro-esophageal reflux disease without esophagitis; M19.90 Unspecified osteoarthritis, unspecified site; I25.5 Ischemic cardiomyopathy; Z79.01 Long term (current) use of anticoagulants; Z95.1 Presence of aortocoronary bypass graft; Z95.810 Presence of automatic (implantable) cardiac defibrillator; Z82.49 Family history of ischemic heart disease and other diseases of the circulatory system; Z79.899 Other long term (current) drug therapy
CPT/HCPCS: 36415; 70450; 71045; 80048; 80307; 81001; 82140; 85025; 87040; 87086; 87116; 93005; 93010; G0378; J0692; J0696; J7030

== ENCOUNTER 2019-09-27 15:59 | Inpatient (IN) | payer MEDICARE, OTHER ==
--- NOTE | 2019-09-27 16:53 | Event Note ---
ED Screening Note ED Screening Note: SP GLF CO L FOOT PAIN PMH SP FALL MOTHERS DAY BROKE BOTH FEET OA FIBRO A/C BACK PAIN HTN PPM CABG AFIB GERD RX METOPROLOL COUMADIN LASIX This initial assessment/diagnostic orders/clinical plan/treatment(s) is/are subject to change based on patients health status, clinical progression and re- assessment by fellow clinical providers in the ED. Further treatment and workup at subsequent clinical providers discretion. Patient/guardian urged not to elope from the ED as their condition may be serious if not clinically assessed and managed. Initial orders include: XRAY LABS GIVEN ON COUMADIN
[2019-09-27 17:15] LABS: Basophils % (Auto) 0.8 % (0.0-1.8); Eosinophils % (Auto) 0.5 % (0.0-4.3); Hematocrit 38.4 % (30.3-42.9); Hemoglobin 13.4 gm/dl (10.1-14.3); Lymphocytes # (Auto) 1.5 K/mm3 (1.2-5.4); Lymphocytes % (Auto) 26.2 % (13.4-35.0); Mean Corpuscular HGB Conc 35 % (30-34); Mean Corpuscular Volume 88 fl (79-97); Monocytes # (Auto) 0.5 K/mm3 (0.0-0.8); Platelet Count 422 K/mm3 (140-440); Red Blood Count 4.36 M/mm3 (3.65-5.03); Red Cell Distribution Width 14.7 % (13.2-15.2)
[2019-09-27 17:27] LABS: INR 1.42 (0.87-1.13)
[2019-09-27 17:41] LABS: Alanine Aminotransferase 16 units/L (7-56); Albumin 4.7 g/dL (3.9-5); BUN/Creatinine Ratio 29; Blood Urea Nitrogen 20 mg/dL (7-17); Calcium 10.4 mg/dL (8.4-10.2); Hemolysis Index 12
--- NOTE | 2019-09-27 17:49 | XRay Report ---
Left foot-3 views INDICATION: FOOT PAIN SP FALL. COMPARISON: None. IMPRESSION: No acute osseous or soft tissue abnormality. No significant DJD. Signer Name: Jean Soto MD Signed: 09/27/2019 5:45 PM Workstation Name: [id number]
--- NOTE | 2019-09-27 19:50 | Emergency Department Report ---
ED Fall HPI - General Chief Complaint: Extremity Injury, Lower Stated Complaint: LT FOOT INJURY Time Seen by Provider: 09/27/19 16:51 Source: patient Mode of arrival: Wheelchair - History of Present Illness Initial Comments: Patient is a 69-year-old female that presents emergency room with complaints of left hip pain, left buttock pain, left thigh pain, and left foot pain secondary to a fall. Patient states she was sitting in a chair and was trying to sit up to get out of the chair and fell. pain is a 10/10. Patient states the pain is better with rest and worse with movement and walking. Patient states she is ambulatory. Patient states she's had bilateral hip surgery. Patient states she's not been able to ambulate for 1 week. Patient prior to fall is able to ambulate however since the fall she is not ambulatory. Patient is unable to bear weight on her entire left leg due to her hip pain. MD Complaint: fall -: Sudden Fall From: chair When Fall Occurred: 4-6 hours [employer] Fall Witnessed: no Place Fall Occurred: home Loss of Consciousness: none Prolonged Down Time?: no Symptoms Prior to Fall: none Location: pelvis Location - Extremities: Left: Thigh, Leg, Foot Severity: severe Severity scale (0 -10): 10 Quality: sharp Context: tripped/slipped Associated Symptoms: denies: headache, neck pain, numbness, weakness, chest paint, shortness of breath, abdominal pain, hematuria, unable to walk, lightheaded, vertigo, confusion - Related Data Previous Rx's Medication Instructions Recorded Last Taken Type Apixaban [Eliquis] 2.5 mg PO BID #30 tablet 03/20/19 05/01/19 Rx Metoprolol [Lopressor TAB] 12.5 mg PO BID #60 tablet 03/20/19 05/01/19 Rx oxyCODONE /ACETAMINOPHEN [Percocet 1 tab PO Q8H PRN #14 tablet 04/26/19 05/01/19 Rx 5/325 mg] cephALEXin [Keflex] 500 mg PO Q8HR #15 cap 05/03/19 Unknown Rx Allergies Allergy/AdvReac Type Severity Reaction Status Date / Time atorvastatin [From Lipitor] Allergy Unknown Verified 02/22/19 18:11 metoclopramide [From Reglan] Allergy Unknown Verified 02/22/19 21:06 promethazine [From Phenergan] Allergy Unknown Verified 02/22/19 21:06 ED Review of Systems ROS: Stated complaint: LT FOOT INJURY Other details as noted in HPI Constitutional: denies: chills, fever Eyes: denies: eye pain, eye discharge, vision change ENT: denies: ear pain, throat pain Respiratory: denies: cough, shortness of breath, wheezing Cardiovascular: denies: chest pain, palpitations Endocrine: no symptoms reported Gastrointestinal: denies: abdominal pain, nausea, diarrhea Genitourinary: denies: urgency, dysuria, discharge Musculoskeletal: denies: back pain, joint swelling, arthralgia Skin: denies: rash, lesions Neurological: denies: headache, weakness, paresthesias Psychiatric: denies: anxiety, depression Hematological/Lymphatic: denies: easy bleeding, easy bruising ED Past Medical Hx - Past Medical History Previous Medical History?: Yes Hx Hypertension: Yes Hx GERD: Yes Hx Arthritis: Yes Additional medical history: A. FIB - Surgical History Past Surgical History?: Yes Hx Open Heart Surgery: Yes (CABG) Hx Pacemaker: Yes (Left chest) Hx Internal Defibrillator: Yes (Left chest) - Family History Family history: no significant - Social History Smoking Status: Never Smoker Substance Use Type: None - Medications Home Medications: Home Medications Medication Instructions Recorded Confirmed Last Taken Type Apixaban [Eliquis] 2.5 mg PO BID #30 tablet 03/20/19 05/01/19 05/01/19 Rx Metoprolol [Lopressor TAB] 12.5 mg PO BID #60 tablet 03/20/19 05/01/19 05/01/19 Rx oxyCODONE /ACETAMINOPHEN [Percocet 1 tab PO Q8H PRN #14 tablet 04/26/19 05/01/19 05/01/19 Rx 5/325 mg] cephALEXin [Keflex] 500 mg PO Q8HR #15 cap 05/03/19 Unknown Rx ED Physical Exam - General Limitations: Physical Limitation General appearance: alert, in no apparent distress - Head Head exam: Present: atraumatic, normocephalic - Eye Eye exam: Present: normal appearance - ENT ENT exam: Present: mucous membranes moist - Neck Neck exam: Present: normal inspection, full ROM. Absent: tenderness - Respiratory Respiratory exam: Present: normal lung sounds bilaterally. Absent: respiratory distress, wheezes, rales - Cardiovascular Cardiovascular Exam: Present: regular rate, normal rhythm. Absent: systolic murmur, diastolic murmur, rubs, gallop - GI/Abdominal GI/Abdominal exam: Present: soft, normal bowel sounds. Absent: distended, tenderness, guarding - Rectal Rectal exam: Present: deferred - Extremities Exam Extremities exam: Present: normal inspection, tenderness (left dye tenderness, left hip tenderness, left foot tenderness), normal capillary refill. Absent: pedal edema, joint swelling, calf tenderness - Back Exam Back exam: Present: normal inspection - Neurological Exam Neurological exam: Present: alert, oriented X3 - Psychiatric Psychiatric exam: Present: normal affect, normal mood - Skin Skin exam: Present: warm, dry, intact, normal color. Absent: rash ED Course Vital Signs 09/27/19 09/27/19 09/27/19 16:31 21:41 22:00 Temperature 99.1 F 98.3 F Pulse Rate 76 98 H Respiratory 18 16 15 Rate Blood Pressure 116/68 Blood Pressure 107/68 [Right] O2 Sat by Pulse 99 98 Oximetry - Reevaluation(s) Reevaluation #1: I discussed all results with patient. I discussed plan of care with patient. Patient agrees with plan of care. Patient will be admitted to the hospitalist service. Patient will have a CT scan done of the pelvis. 09/27/19 21:38 - Consultations Consultation #1: Orthopedist consulted. Orthopedics recommends admission to the hospitalist service. 09/27/19 21:34 Consultation #2: Hospitalist consultation for admission. Hospitalist admit patient. 09/27/19 21:37 ED Medical Decision Making - Lab Data Result diagrams: 09/27/19 17:03 09/27/19 17:03 - Radiology Data Radiology results: report reviewed, image reviewed interpreted by me: No acute fractures noted on x-rays. LEFT HIP, 2 VIEWS 09/27/2019 INDICATION / CLINICAL INFORMATION: pain. fall. COMPARISON: None available. FINDINGS: No acute fracture or evidence of dislocation. Left foot-3 views INDICATION: FOOT PAIN SP FALL. COMPARISON: None. IMPRESSION: No acute osseous or soft tissue abnormality. No significant DJD. CT abdomen pelvis wo con INDICATION / CLINICAL INFORMATION: intractable hip pain. fall. nonambulatory. TECHNIQUE: All CT scans at this location are performed using CT dose reduction for ALARA by means of automated exposure control. COMPARISON: None available. FINDINGS: Lower lungs are clear. ABDOMEN: The gallbladder, liver, spleen, pancreas and adrenal glands are normal. No urinary calculi or hydronephrosis. A left upper pole renal cyst is imaged. There is moderate fecal retention in the rectum and colon. No dependent fluid collections are identified in the pelvis. There are bilateral hip nailing. No ununited pelvic fractures are identified. Note is made of compression deformity of the L3 vertebral body, age indeterminate. IMPRESSION: 1. No acute abdominal or pelvic findings. 2. L3 compression deformity, age unknown. - Medical Decision Making Patient is a 69-year-old female that presents emergency room status post fall with complaints of left foot pain, left thigh pain, left hip pain and left buttock pain. Patient had multiple x-rays and all were negative for fractures. Patient had labs essentially unremarkable. Patient is currently on Coumadin for A. fib and her INR is at goal. I did to the hospitalist service due to the fact the patient is unable to ambulate and pain control. I discussed his case with orthopedics and it appears recommends admission. - Differential Diagnosis fall. Strain, sprain, contusion, fracture Critical care attestation.: If time is entered above; I have spent that time in minutes in the direct care of this critically ill patient, excluding procedure time. ED Disposition Clinical Impression: Leg pain, left, Intractable pain, Unable to walk, Foot pain, left, Pelvic pain Hip pain Qualifiers: Laterality: left Qualified Code(s): M25.552 - Pain in left hip Fall Qualifiers: Encounter type: initial encounter Qualified Code(s): W19.XXXA - Unspecified fall, initial encounter Foot contusion Qualifiers: Encounter type: initial encounter Laterality: left Qualified Code(s): S90.32XA - Contusion of left foot, initial encounter Disposition: DC-09 OP ADMIT IP TO THIS HOSP Is pt being admited?: Yes Does the pt Need Aspirin: No Condition: Serious Time of Disposition: 21:40
--- NOTE | 2019-09-27 20:42 | XRay Report ---
LEFT FEMUR, 4 VIEWS 09/27/2019 INDICATION / CLINICAL INFORMATION: pain. fall. COMPARISON: 04/23/2019 FINDINGS: Intramedullary femoral elida and left hip nailing. Proximal femoral fracture is united. No acute fractures. Advanced degenerative change in the patellofemoral joint. Signer Name: Sony Zamora MD Signed: 09/27/2019 8:37 PM Workstation Name: [id number]
--- NOTE | 2019-09-27 20:44 | XRay Report ---
LEFT HIP, 2 VIEWS 09/27/2019 INDICATION / CLINICAL INFORMATION: pain. fall. COMPARISON: None available. FINDINGS: No acute fracture or evidence of dislocation. Signer Name: Sony Zamora MD Signed: 09/27/2019 8:39 PM Workstation Name: [id number]
[2019-09-27] MEDS ORDERED: HYDROcodone/ACETAMINOPHEN 5-325 MG TAB PO ONE (20:48)
[2019-09-27] MEDS ORDERED: HYDROmorphone 1 MG/1 ML INJ IV ONE (21:21)
[2019-09-27] MEDS ORDERED: ONDANSETRON 4 MG/2 ML INJ IV PRN (22:13)
[2019-09-27] MEDS ORDERED: MAGNESIUM HYDROXIDE (MOM) ORAL LIQD UDC PO PRN (22:13)
--- NOTE | 2019-09-27 22:29 | Cat Scan Report ---
CT abdomen pelvis wo con INDICATION / CLINICAL INFORMATION: intractable hip pain. fall. nonambulatory. TECHNIQUE: All CT scans at this location are performed using CT dose reduction for ALARA by means of automated e xposure control. COMPARISON: None available. FINDINGS: Lower lungs are clear. ABDOMEN: The gallbladder, liver, spleen, pancreas and adrenal glands are normal. No urinary calculi or hydronephrosis. A left upper pole renal cyst is imaged. There is moderate fecal retention in the rectum and colon. No dependent fluid collections are identified in the pelvis. There are bilateral hip nailing. No ununited pelvic fractures are identified. Note is made of compression deformity of the L3 vertebral body, age indeterminate. IMPRESSION: 1. No acute abdominal or pelvic findings. 2. L3 compression deformity, age unknown. Signer Name: Sony Zamora MD Signed: 09/27/2019 10:25 PM Workstation Name: [id number]
--- NOTE | 2019-09-28 00:18 | History and Physical Report ---
History of Present Illness Date of examination: 09/27/19 Date of admission: 09/27/19 21:41 Chief complaint: Left hip pain Pain in the buttocks History of present illness: 69-year-old white female with known history of hypertension, arthritis, fibromyalgia, coronary artery disease with CABG in the past presenting to the emergency room today complaining of pain in the left hip and unable to ambulate since the fall earlier today. She indicates she was trying to get up from a sitting position while she lost balance and fell. She denies any head injury and denies any loss of consciousness. She has not been able to ambulate since the fall. Patient has known history of bilateral hip replacement. She presented to the emergency room about 6 hours after a fall. Evaluation in the emergency room including radiological exam are currently unremarkable. However patient has been having severe pain and unable to ambulate. Orthopedic surgeon Dr. Manzano has been consulted and patient will be promptly evaluated. Past History Past Medical History: arthritis, GERD, hypertension, other (Fibromyalgia) Past Surgical History: appendectomy, CABG, hysterectomy, Other (Pacemaker placement,) Social history: no significant social history Family history: CAD (Father had [place]), cancer (Father had lung cancer) Medications and Allergies Allergies Allergy/AdvReac Type Severity Reaction Status Date / Time atorvastatin [From Lipitor] Allergy Unknown Verified 02/22/19 18:11 metoclopramide [From Reglan] Allergy Unknown Verified 02/22/19 21:06 promethazine [From Phenergan] Allergy Unknown Verified 02/22/19 21:06 Home Medications Medication Instructions Recorded Confirmed Last Taken Type Apixaban [Eliquis] 2.5 mg PO BID #30 tablet 03/20/19 05/01/19 05/01/19 Rx Metoprolol [Lopressor TAB] 12.5 mg PO BID #60 tablet 03/20/19 05/01/19 05/01/19 Rx oxyCODONE /ACETAMINOPHEN [Percocet 1 tab PO Q8H PRN #14 tablet 04/26/19 05/01/19 05/01/19 Rx 5/325 mg] cephALEXin [Keflex] 500 mg PO Q8HR #15 cap 05/03/19 Unknown Rx Active Meds: Active Medications Acetaminophen (Tylenol) 650 mg PO Q4H PRN PRN Reason: Pain MILD(1-3)/Fever >100.5/DUPREE Magnesium Hydroxide (Milk Of Magnesia) 30 ml PO Q4H PRN PRN Reason: Constipation Ondansetron HCl (Zofran) 4 mg IV Q8H PRN PRN Reason: Nausea And Vomiting Sodium Chloride (Sodium Chloride Flush Syringe 10 Ml) 10 ml IV BID JESSICA Sodium Chloride (Sodium Chloride Flush Syringe 10 Ml) 10 ml IV PRN PRN PRN Reason: LINE FLUSH Review of Systems Musculoskeletal: low back pain, myalgias, other (Left hip pain) Exam - Constitutional Vitals: Temp Pulse Resp BP Pulse Ox 98.3 F 98 H 15 107/68 98 09/27/19 22:00 09/27/19 22:00 09/27/19 22:00 09/27/19 22:00 09/27/19 22:00 General appearance: Present: no acute distress, well-nourished - EENT Eyes: Present: PERRL, EOM intact ENT: hearing intact, clear oral mucosa, dentition normal - Neck Neck: Present: supple, normal ROM - Respiratory Respiratory effort: normal Respiratory: bilateral: CTA - Cardiovascular Rhythm: regular Heart Sounds: Present: S1 & S2 - Extremities Extremities: no ischemia, pulses intact, pulses symmetrical, Full ROM Extremity abnormal: edema (Trace bilateral ankle edema), erythema (Mild erythema in the lower one third of both legs) Peripheral Pulses: within normal limits - Abdominal General gastrointestinal: Present: soft, non-tender, non-distended, normal bowel sounds - Integumentary Integumentary: Present: clear, warm, dry - Musculoskeletal Musculoskeletal: strength equal bilaterally - Psychiatric Psychiatric: appropriate mood/affect, intact judgment & insight, cooperative Results - Labs CBC & Chem 7: 09/27/19 17:03 09/27/19 17:03 Labs: Abnormal lab results 09/27/19 09/27/19 09/27/19 Range/Units 17:03 17:03 17:03 MCHC 35 H (30-34) % Millard % (Auto) 9.0 H (0.0-7.3) % PT 17.6 H (12.2-14.9) Sec. INR 1.42 H (0.87-1.13) Chloride 90.4 L (98-107) mmol/L BUN 20 H (7-17) mg/dL Glucose 105 H (65-100) mg/dL Calcium 10.4 H (8.4-10.2) mg/dL Alkaline Phosphatase 185 H (35-129) units/L Total Protein 8.6 H (6.3-8.2) g/dL Assessment and Plan - Patient Problems (1) Hip pain Current Visit: Yes Status: Acute Qualifiers: Laterality: left Qualified Code(s): M25.552 - Pain in left hip Plan to address problem: Status post fall patient will be placed on and analgesic medication for pain control. Patient will be worked up for possible pelvic/hip fracture. Patient will be evaluated by the orthopedic surgeon. We also request physical therapy evaluation. (2) Hypertension Current Visit: Yes Status: Acute Plan to address problem: Blood pressure stable. Will resume routine home medications once reconciled. (3) History of fall Current Visit: Yes Status: Acute Plan to address problem: We will place on fall precautions. (4) DVT prophylaxis Current Visit: Yes Status: Acute Plan to address problem: Patient placed on subcutaneous heparin. (5) Full code status Current Visit: Yes Status: Acute
[2019-09-28] MEDS: ACETAMINOPHEN 325 MG TAB PO PRN (04:08)
[2019-09-28 05:57] LABS: Basophils % (Auto) 0.7 % (0.0-1.8); Eosinophils # (Auto) 0.1 K/mm3 (0.0-0.4); Eosinophils % (Auto) 1.7 % (0.0-4.3); Hematocrit 37.6 % (30.3-42.9); Hemoglobin 12.5 gm/dl (10.1-14.3); Mean Corpuscular HGB Conc 33 % (30-34); Mean Corpuscular Volume 89 fl (79-97); Monocytes # (Auto) 0.8 K/mm3 (0.0-0.8); Monocytes % (Auto) 12.7 % (0.0-7.3); Platelet Count 419 K/mm3 (140-440); Red Blood Count 4.23 M/mm3 (3.65-5.03); Red Cell Distribution Width 15.1 % (13.2-15.2)
[2019-09-28 06:06] LABS: INR 1.43 (0.87-1.13)
[2019-09-28 06:07] LABS: Partial Thromboplastin Time 40.4 Sec. (24.2-36.6)
[2019-09-28 06:20] LABS: BUN/Creatinine Ratio 33; Blood Urea Nitrogen 23 mg/dL (7-17); Calcium 9.9 mg/dL (8.4-10.2); Hemolysis Index 7
[2019-09-28] MEDS: HEPARIN 5,000 UNIT/1 ML VIAL SUB-Q SCH ×3 (06:37→21:31)
--- NOTE | 2019-09-28 15:15 | Progress Note ---
Assessment and Plan - Patient Problems (1) Severe malnutrition Current Visit: Yes Status: Acute Plan to address problem: Increase protein intake, dietary supplementation. (2) Debility Current Visit: Yes Status: Acute Plan to address problem: Physical therapy consulted, supportive care. (3) Fall Current Visit: Yes Status: Acute Qualifiers: Encounter type: initial encounter Qualified Code(s): W19.XXXA - Unspecified fall, initial encounter Plan to address problem: X-ray hip, fall precautions, physical therapy consulted. (4) Hip pain Current Visit: Yes Status: Acute Qualifiers: Laterality: left Qualified Code(s): M25.552 - Pain in left hip Plan to address problem: Orthopedic surgery consulted in ED, pain control, early ambulation, physical therapy consulted. (5) Osteoarthritis Current Visit: Yes Status: Acute Qualifiers: Laterality: unspecified laterality Plan to address problem: NSAID therapy, pain control, (6) Advance care planning Current Visit: Yes Status: Acute Plan to address problem: Patient is full code, disease education conducted, patient acknowledged understanding and agreement with care plan. +30 minutes. (7) DVT prophylaxis Current Visit: Yes Status: Acute Plan to address problem: SCD to bilateral lower extremity while in bed, prophylactic heparin. History Interval history: 69-year-old female hospital day 2 with debility, gait instability, hip pain status post fall, osteoarthritis, severe malnutrition.. Patient resting comfortably in bed. Patient continues to acknowledge left hip pain. Patient is unable to ambulate due to pain in her left hip. Physical therapy consulted. Patient denies fever, chills, chest pain, shortness of breath, recent ill contacts. No reported nursing events. Orthopedic surgery consulted in ED. Hospitalist Physical - Constitutional Vitals: Temp Pulse Resp BP Pulse Ox 99.4 F 101 H 18 128/69 93 09/28/19 14:30 09/28/19 14:30 09/28/19 14:30 09/28/19 14:30 09/28/19 14:30 General appearance: Present: no acute distress, cachectic - EENT Eyes: Present: PERRL ENT: hearing intact - Neck Neck: Present: supple - Respiratory Respiratory: bilateral: CTA - Cardiovascular Rhythm: regular Heart Sounds: Present: S1 & S2 - Extremities Extremities: no ischemia Extremity abnormal: other (Left hip pain) - Abdominal General gastrointestinal: soft, non-tender, tender - Integumentary Integumentary: Present: clear, warm, dry - Psychiatric Psychiatric: appropriate mood/affect, cooperative - Neurologic Neurologic: CNII-XII intact Results - Labs CBC & Chem 7: 09/28/19 05:16 09/28/19 05:16 Labs: Laboratory Last Values WBC 6.1 K/mm3 (4.5-11.0) 09/28/19 05:16 RBC 4.23 M/mm3 (3.65-5.03) 09/28/19 05:16 Hgb 12.5 gm/dl (10.1-14.3) 09/28/19 05:16 Hct 37.6 % (30.3-42.9) 09/28/19 05:16 MCV 89 fl (79-97) 09/28/19 05:16 MCH 30 pg (28-32) 09/28/19 05:16 MCHC 33 % (30-34) 09/28/19 05:16 RDW 15.1 % (13.2-15.2) 09/28/19 05:16 Plt Count 419 K/mm3 (140-440) 09/28/19 05:16 Lymph % (Auto) 32.0 % (13.4-35.0) 09/28/19 05:16 [place] % (Auto) 12.7 % (0.0-7.3) H 09/28/19 05:16 Eos % (Auto) 1.7 % (0.0-4.3) 09/28/19 05:16 Baso % (Auto) 0.7 % (0.0-1.8) 09/28/19 05:16 Lymph # 2.0 K/mm3 (1.2-5.4) 09/28/19 05:16 [place] # 0.8 K/mm3 (0.0-0.8) 09/28/19 05:16 Eos # 0.1 K/mm3 (0.0-0.4) 09/28/19 05:16 Baso # 0.0 K/mm3 (0.0-0.1) 09/28/19 05:16 Seg Neutrophils % 52.9 % (40.0-70.0) 09/28/19 05:16 Seg Neutrophils # 3.2 K/mm3 (1.8-7.7) 09/28/19 05:16 PT 17.7 Sec. (12.2-14.9) H 09/28/19 05:16 INR 1.43 (0.87-1.13) H 09/28/19 05:16 APTT 40.4 Sec. (24.2-36.6) H 09/28/19 05:16 Sodium 138 mmol/L (137-145) 09/28/19 05:16 Potassium 3.6 mmol/L (3.6-5.0) 09/28/19 05:16 Chloride 93.0 mmol/L (98-107) L 09/28/19 05:16 Carbon Dioxide 25 mmol/L (22-30) 09/28/19 05:16 Anion Gap 24 mmol/L 09/28/19 05:16 BUN 23 mg/dL (7-17) H 09/28/19 05:16 Creatinine 0.7 mg/dL (0.7-1.2) 09/28/19 05:16 Estimated GFR > 60 ml/min 09/28/19 05:16 BUN/Creatinine Ratio 33 % 09/28/19 05:16 Glucose 83 mg/dL (65-100) 09/28/19 05:16 Calcium 9.9 mg/dL (8.4-10.2) 09/28/19 05:16 Total Bilirubin 0.70 mg/dL (0.1-1.2) 09/27/19 17:03 AST 22 units/L (5-40) 09/27/19 17:03 ALT 16 units/L (7-56) 09/27/19 17:03 Alkaline Phosphatase 185 units/L (35-129) H 09/27/19 17:03 Total Protein 8.6 g/dL (6.3-8.2) H 09/27/19 17:03 Albumin 4.7 g/dL (3.9-5) 09/27/19 17:03 Albumin/Globulin Ratio 1.2 % 09/27/19 17:03 Active Medications - Current Medications Current Medications: Generic Name Dose Route Start Last Admin Trade Name Freq PRN Reason Stop Dose Admin Acetaminophen 650 mg 09/27/19 22:13 09/28/19 04:08 Tylenol PO 650 mg Q4H PRN Administration Pain MILD(1-3)/Fever >100.5/DUPREE Heparin Sodium (Porcine) 5,000 unit 09/28/19 06:00 09/28/19 15:12 Heparin SUB-Q 5,000 unit Q8HR JESSICA Administration Magnesium Hydroxide 30 ml 09/27/19 22:13 Milk Of Magnesia PO Q4H PRN Constipation Ondansetron HCl 4 mg 09/27/19 22:13 Zofran IV Q8H PRN Nausea And Vomiting Sodium Chloride 10 ml 09/28/19 10:00 Sodium Chloride Flush Syringe 10 Ml IV BID JESSICA Sodium Chloride 10 ml 09/27/19 22:13 Sodium Chloride Flush Syringe 10 Ml IV PRN PRN LINE FLUSH Nutrition/Malnutrition Assess - Dietary Evaluation Nutrition/Malnutrition Findings: Nutrition Notes Start: 09/28/19 11:10 Freq: Status: Active Protocol: Document 09/28/19 11:10 KEARA (Rec: 09/28/19 11:21 KEARA [id number]) Co-Sign 09/28/19 11:10 LP Nutrition Notes Need for Assessment generated from: MD Order Initial or Follow up Assessment Current Diagnosis Coronary Artery Disease, Hypertension Other Pertinent Diagnosis Hx CABG, arthritis, fibromyalgia Current Diet Regular diet Labs/Tests BUN 23 Pertinent Medications Reviewed Height 5 ft 5 in Weight 49.89 kg Usual Body Weight 54.5 kg [place] Body Weight (kg) 56.81 BMI 18.3 Weight change and time frame 8.4% wt loss in unknow time frame Weight Status Underweight Subjective/Other Information RD screen for skin risk assessment. Horace score was 20. Pt was lethargic during time of visit. Pt stated she had not experience wt loss. 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 Pt stated her appetite was fair currently and ate 25% of breakfast. Offered pt Ensure Enlive for extra kcal and protein and she agreed. Noted slight temporal, clavicle, and hand depletion. Burn Absent Trauma Absent GI Symptoms None Current % PO Poor (25-49%) Minimum of two criteria Yes Muscle Mass Mild Depletion (non-severe) Reduced Ip Paralegal Strength Measurably Reduced (severe) #1 Nutrition Diagnosis Malnutrition Etiology Left hip pain, lethargic, decreased appetite As Evidenced by Signs and Symptoms Mild muscle mass depletion, Reduced hot knife cutter strength Is patient on ventilator? No Is Patient Ambulatory and/or Out of Bed No REE-(Brooks-St. Jeor-confined to bed) 1229.856 Kcal/Kg value to use for calculation 30 Approximate Energy Requirements Using 1497 kcal/Kg Calculation Used for Recommendations Kcal/kg Additional Notes Protein: 60-75g (1.2-1.5g/kg) Fluid: 1ml/kcal Nutrition Intervention Change Diet Order: Regular Add Supplement/Snack (indicate name/kcal Ensure Enlive BID /protein ) Provides kCal: 700 Provides Protein (gm) 40 Goal #1 Meet at least 90% of energy and protein via PO and ONS intakes Goal #2 Wt maintenance Anticipated Discharge Needs: Regular Follow-Up By: 10/02/19 Additional Comments F/U for PO and ONS tolerance
[2019-09-29] MEDS: HEPARIN 5,000 UNIT/1 ML VIAL SUB-Q SCH ×3 (05:37→21:27)
--- NOTE | 2019-09-29 13:12 | Discharge Summary ---
Providers - Providers Date of Admission: 09/28/19 16:10 Attending physician: DARIEN COLON 09/27/19 21:44 Consult to Physician [CONS] Routine Comment: Consulting Provider: JAIRO LOVE Physician Instructions: Reason For Exam: fall 09/28/19 05:26 Physical Therapy Evaluation and Treat [CONS] Routine Comment: Reason For Exam: INABILITY TO AMBULATE S/P FALL. Primary care physician: QUALITY ASSURANCE NURSE Hospitalization Condition: Serious Disposition: DC-30 STILL A PATIENT - Discharge Diagnoses (1) Severe malnutrition Status: Acute (2) Debility Status: Acute (3) Fall Status: Acute Qualifiers: Encounter type: initial encounter Qualified Code(s): W19.XXXA - Unspecified fall, initial encounter (4) Hip pain Status: Acute Qualifiers: Laterality: left Qualified Code(s): M25.552 - Pain in left hip (5) Osteoarthritis Status: Acute Qualifiers: Laterality: unspecified laterality (6) Advance care planning Status: Acute (7) DVT prophylaxis Status: Acute Exam - Constitutional Vitals: Temp Pulse Resp BP Pulse Ox 98.1 F 88 16 115/62 94 09/29/19 07:28 09/29/19 07:28 09/29/19 07:28 09/29/19 07:28 09/29/19 07:28 Plan Follow up with: EUNICE FLANNERY MD [Primary Care Provider] - 3-5 Days
--- NOTE | 2019-09-29 15:20 | Progress Note ---
Assessment and Plan - Patient Problems (1) Severe malnutrition Current Visit: Yes Status: Acute Plan to address problem: Increase protein intake, dietary supplementation. (2) Debility Current Visit: Yes Status: Acute Plan to address problem: Physical therapy consulted, patient is declined subacute rehab. Home health RN/home physical therapy arranged via case management. (3) Fall Current Visit: Yes Status: Acute Qualifiers: Encounter type: initial encounter Qualified Code(s): W19.XXXA - Unspecified fall, initial encounter Plan to address problem: X-ray hip, fall precautions, physical therapy consulted. (4) Hip pain Current Visit: Yes Status: Acute Qualifiers: Laterality: left Qualified Code(s): M25.552 - Pain in left hip Plan to address problem: Orthopedic surgery consulted in ED, pain control, early ambulation, physical therapy consulted. (5) Osteoarthritis Current Visit: Yes Status: Acute Qualifiers: Laterality: unspecified laterality Plan to address problem: NSAID therapy, pain control, (6) Advance care planning Current Visit: Yes Status: Acute Plan to address problem: Patient is full code, disease education conducted, patient acknowledged understanding and agreement with care plan. +30 minutes. (7) DVT prophylaxis Current Visit: Yes Status: Acute Plan to address problem: SCD to bilateral lower extremity while in bed, prophylactic heparin. History Interval history: 69-year-old female hospital day 2 with debility, gait instability, hip pain status post fall, osteoarthritis, severe malnutrition. Patient resting comfortably in bed. Patient continues to acknowledge left hip pain. Physical therapy consulted and recommend subacute rehab. Patient declines subacute rehab and reports that she wishes to be discharged home with home physical therapy. Patient counseled regarding risks and benefits of home physical therapy, patient states that she does not want to go to rehab. Patient denies fever, chills, chest pain, shortness of breath, recent ill contacts. No reported nursing events. Hospitalist Physical - Constitutional Vitals: Temp Pulse Resp BP Pulse Ox 98.8 F 60 18 106/46 95 09/29/19 13:34 09/29/19 13:34 09/29/19 13:34 09/29/19 13:34 09/29/19 13:34 General appearance: Present: no acute distress, cachectic - EENT Eyes: Present: PERRL ENT: hearing intact - Neck Neck: Present: supple - Respiratory Respiratory: bilateral: CTA - Cardiovascular Rhythm: regular Heart Sounds: Present: S1 & S2 - Extremities Extremities: no ischemia Peripheral Pulses: within normal limits - Abdominal General gastrointestinal: soft, non-tender, tender - Integumentary Integumentary: Present: clear, warm, dry - Psychiatric Psychiatric: appropriate mood/affect, cooperative - Neurologic Neurologic: CNII-XII intact Results - Labs CBC & Chem 7: 09/28/19 05:16 09/28/19 05:16 Labs: Laboratory Last Values WBC 6.1 K/mm3 (4.5-11.0) 09/28/19 05:16 RBC 4.23 M/mm3 (3.65-5.03) 09/28/19 05:16 Hgb 12.5 gm/dl (10.1-14.3) 09/28/19 05:16 Hct 37.6 % (30.3-42.9) 09/28/19 05:16 MCV 89 fl (79-97) 09/28/19 05:16 MCH 30 pg (28-32) 09/28/19 05:16 MCHC 33 % (30-34) 09/28/19 05:16 RDW 15.1 % (13.2-15.2) 09/28/19 05:16 Plt Count 419 K/mm3 (140-440) 09/28/19 05:16 Lymph % (Auto) 32.0 % (13.4-35.0) 09/28/19 05:16 Mineral % (Auto) 12.7 % (0.0-7.3) H 09/28/19 05:16 Eos % (Auto) 1.7 % (0.0-4.3) 09/28/19 05:16 Baso % (Auto) 0.7 % (0.0-1.8) 09/28/19 05:16 Lymph # 2.0 K/mm3 (1.2-5.4) 09/28/19 05:16 Mineral # 0.8 K/mm3 (0.0-0.8) 09/28/19 05:16 Eos # 0.1 K/mm3 (0.0-0.4) 09/28/19 05:16 Baso # 0.0 K/mm3 (0.0-0.1) 09/28/19 05:16 Seg Neutrophils % 52.9 % (40.0-70.0) 09/28/19 05:16 Seg Neutrophils # 3.2 K/mm3 (1.8-7.7) 09/28/19 05:16 PT 17.7 Sec. (12.2-14.9) H 09/28/19 05:16 INR 1.43 (0.87-1.13) H 09/28/19 05:16 APTT 40.4 Sec. (24.2-36.6) H 09/28/19 05:16 Sodium 138 mmol/L (137-145) 09/28/19 05:16 Potassium 3.6 mmol/L (3.6-5.0) 09/28/19 05:16 Chloride 93.0 mmol/L (98-107) L 09/28/19 05:16 Carbon Dioxide 25 mmol/L (22-30) 09/28/19 05:16 Anion Gap 24 mmol/L 09/28/19 05:16 BUN 23 mg/dL (7-17) H 09/28/19 05:16 Creatinine 0.7 mg/dL (0.7-1.2) 09/28/19 05:16 Estimated GFR > 60 ml/min 09/28/19 05:16 BUN/Creatinine Ratio 33 % 09/28/19 05:16 Glucose 83 mg/dL (65-100) 09/28/19 05:16 Calcium 9.9 mg/dL (8.4-10.2) 09/28/19 05:16 Total Bilirubin 0.70 mg/dL (0.1-1.2) 09/27/19 17:03 AST 22 units/L (5-40) 09/27/19 17:03 ALT 16 units/L (7-56) 09/27/19 17:03 Alkaline Phosphatase 185 units/L (35-129) H 09/27/19 17:03 Total Protein 8.6 g/dL (6.3-8.2) H 09/27/19 17:03 Albumin 4.7 g/dL (3.9-5) 09/27/19 17:03 Albumin/Globulin Ratio 1.2 % 09/27/19 17:03 Active Medications - Current Medications Current Medications: Generic Name Dose Route Start Last Admin Trade Name Freq PRN Reason Stop Dose Admin Acetaminophen 650 mg 09/27/19 22:13 09/28/19 04:08 Tylenol PO 650 mg Q4H PRN Administration Pain MILD(1-3)/Fever >100.5/DUPREE Heparin Sodium (Porcine) 5,000 unit 09/28/19 06:00 09/29/19 13:31 Heparin SUB-Q 5,000 unit Q8HR JESSICA Administration Magnesium Hydroxide 30 ml 09/27/19 22:13 Milk Of Magnesia PO Q4H PRN Constipation Ondansetron HCl 4 mg 09/27/19 22:13 Zofran IV Q8H PRN Nausea And Vomiting Sodium Chloride 10 ml 09/28/19 10:00 09/29/19 10:04 Sodium Chloride Flush Syringe 10 Ml IV 10 ml BID JESSICA Administration Sodium Chloride 10 ml 09/27/19 22:13 Sodium Chloride Flush Syringe 10 Ml IV PRN PRN LINE FLUSH Nutrition/Malnutrition Assess - Dietary Evaluation Nutrition/Malnutrition Findings: Nutrition Notes Start: 09/28/19 11:10 Freq: Status: Active Protocol: Document 09/28/19 11:10 KEARA (Rec: 09/28/19 11:21 KEARA [id number]) Co-Sign 09/28/19 11:10 LP Nutrition Notes Need for Assessment generated from: MD Order Initial or Follow up Assessment Current Diagnosis Coronary Artery Disease, Hypertension Other Pertinent Diagnosis Hx CABG, arthritis, fibromyalgia Current Diet Regular diet Labs/Tests BUN 23 Pertinent Medications Reviewed Height 5 ft 5 in Weight 49.89 kg Usual Body Weight 54.5 kg [place] Body Weight (kg) 56.81 BMI 18.3 Weight change and time frame 8.4% wt loss in unknow time frame Weight Status Underweight Subjective/Other Information RD screen for skin risk assessment. Horace score was 20. Pt was lethargic during time of visit. Pt stated she had not experience wt loss. 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 Pt stated her appetite was fair currently and ate 25% of breakfast. Offered pt Ensure Enlive for extra kcal and protein and she agreed. Noted slight temporal, clavicle, and hand depletion. 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 No Is Patient Ambulatory and/or Out of Bed No REE-([facility]-confined to bed) 1229.856 Kcal/Kg value to use for calculation 30 Approximate Energy Requirements Using 1497 kcal/Kg Calculation Used for Recommendations Kcal/kg Additional Notes Protein: 60-75g (1.2-1.5g/kg) Fluid: 1ml/kcal Nutrition Intervention Change Diet Order: Regular Add Supplement/Snack (indicate name/kcal Ensure Enlive BID /protein ) Provides kCal: 700 Provides Protein (gm) 40 Goal #1 Meet at least 90% of energy and protein via PO and ONS intakes Goal #2 Wt maintenance Anticipated Discharge Needs: Regular Follow-Up By: 10/02/19 Additional Comments F/U for PO and ONS tolerance
--- NOTE | 2019-09-29 17:00 | Consultation ---
History of Present Illness - HPI Consult date: 09/29/19 Consult reason: joint pain History of present illness: 69 y/o female well known to me from previous admission for left intertroch fracture, currently c/o low back and left hip/leg pain after recent fall...w/u with plain xrays and CT scan reveal possible L3 vertebral fracture... seen by PT slow progress to date... Past History Past Medical History: arthritis, GERD, hypertension, other (Fibromyalgia) Past Surgical History: appendectomy, CABG, hysterectomy, Other (Pacemaker placement,) Social history: no significant social history Family history: CAD (Father had LA), cancer (Father had lung cancer) Medications and Allergies Allergies Allergy/AdvReac Type Severity Reaction Status Date / Time atorvastatin [From Lipitor] Allergy Unknown Verified 02/22/19 18:11 metoclopramide [From Reglan] Allergy Unknown Verified 02/22/19 21:06 promethazine [From Phenergan] Allergy Unknown Verified 02/22/19 21:06 Home Medications Medication Instructions Recorded Confirmed Last Taken Type Apixaban [Eliquis] 2.5 mg PO BID #30 tablet 03/20/19 09/28/19 05/01/19 Rx Metoprolol [Lopressor TAB] 12.5 mg PO BID #60 tablet 03/20/19 09/28/19 05/01/19 Rx oxyCODONE /ACETAMINOPHEN [Percocet 1 tab PO Q8H PRN #14 tablet 04/26/19 09/28/19 05/01/19 Rx 5/325 mg] cephALEXin [Keflex] 500 mg PO Q8HR #15 cap 05/03/19 09/28/19 Unknown Rx Naproxen 250 mg PO DAILY #7 tablet 09/29/19 Unknown Rx oxyCODONE /ACETAMINOPHEN [Percocet 1 tab PO Q6HR PRN #10 tablet 09/29/19 Unknown Rx 5/325] Active Meds: Active Medications Acetaminophen (Tylenol) 650 mg PO Q4H PRN PRN Reason: Pain MILD(1-3)/Fever >100.5/DUPREE Last Admin: 09/28/19 04:08 Dose: 650 mg Documented by: Heparin Sodium (Porcine) (Heparin) 5,000 unit SUB-Q Q8HR JESSICA Last Admin: 09/29/19 13:31 Dose: 5,000 unit Documented by: Magnesium Hydroxide (Milk Of Magnesia) 30 ml PO Q4H PRN PRN Reason: Constipation Ondansetron HCl (Zofran) 4 mg IV Q8H PRN PRN Reason: Nausea And Vomiting Sodium Chloride (Sodium Chloride Flush Syringe 10 Ml) 10 ml IV BID JESSICA Last Admin: 09/29/19 10:04 Dose: 10 ml Documented by: Sodium Chloride (Sodium Chloride Flush Syringe 10 Ml) 10 ml IV PRN PRN PRN Reason: LINE FLUSH Physical Examination - Physical exam Narrative exam: on PE - Lspine tender at lumbar spine, decreased active/passive ROM, Straight leg raise equivocal, DTR's sym left hip - tender on passive ROM, gait antalgic Assessment and Plan low back and left hip pain, probable L3 compression fracture recommendations - PT and rehab, back brace, pain meds....
[2019-09-29] MEDS: ACETAMINOPHEN 325 MG TAB PO PRN (18:17)
[2019-09-30] MEDS: HEPARIN 5,000 UNIT/1 ML VIAL SUB-Q SCH ×3 (05:38→21:17)
--- NOTE | 2019-09-30 20:10 | Progress Note ---
Assessment and Plan - Patient Problems (1) Severe malnutrition Current Visit: Yes Status: Acute Plan to address problem: Increase protein intake, dietary supplementation. (2) Debility Current Visit: Yes Status: Acute Plan to address problem: Physical therapy consulted, patient is declined subacute rehab. Home health RN/home physical therapy arranged via case management. (3) Fall Current Visit: Yes Status: Acute Qualifiers: Encounter type: initial encounter Qualified Code(s): W19.XXXA - Unspecified fall, initial encounter Plan to address problem: X-ray hip, fall precautions, physical therapy consulted. (4) Hip pain Current Visit: Yes Status: Acute Qualifiers: Laterality: left Qualified Code(s): M25.552 - Pain in left hip Plan to address problem: Orthopedic surgery consulted in ED, pain control, early ambulation, physical therapy consulted. (5) Osteoarthritis Current Visit: Yes Status: Acute Qualifiers: Laterality: unspecified laterality Plan to address problem: NSAID therapy, pain control, (6) Advance care planning Current Visit: Yes Status: Acute Plan to address problem: Patient is full code, disease education conducted, patient acknowledged understanding and agreement with care plan. +30 minutes. (7) Compression fracture of L3 vertebra Current Visit: Yes Status: Acute Plan to address problem: Orthopedic surgery consulted. Supportive care. Recommend inpatient rehabthe patient continues to decline rehab at this time (8) DVT prophylaxis Current Visit: Yes Status: Acute Plan to address problem: SCD to bilateral lower extremity while in bed, prophylactic heparin. History Interval history: 69-year-old female hospital day 3 with debility, gait instability, hip pain status post fall, osteoarthritis, severe malnutrition. Patient resting comfortably in bed. Patient continues to acknowledge left hip pain. Physical therapy consulted and recommend subacute rehab. Patient declines subacute rehab at this time. Patient reports reports that she wishes to be discharged home with home physical therapy however patient declines discharge. Patient counseled regarding risks and benefits of home physical therapy, patient states that "I do not want to go to rehab, I want to have physical therapy at home". Patient denies fever, chills, chest pain, shortness of breath, recent ill contacts. No reported nursing events. Case management consulted for clarification. Orthopedic surgery consulted for L3 compression of undetermined age. Will instruct case management to arrange inpatient rehab in the hopes that patient may change her mind and allow for discharge to inpatient rehab. Hospitalist Physical - Constitutional Vitals: Temp Pulse Resp BP Pulse Ox 98.7 F 88 16 118/63 96 09/30/19 14:09 09/30/19 20:04 09/30/19 20:04 09/30/19 14:09 09/30/19 14:09 General appearance: Present: no acute distress, cachectic - EENT Eyes: Present: PERRL, EOM intact ENT: hearing intact - Neck Neck: Present: supple - Respiratory Respiratory effort: normal Respiratory: bilateral: CTA - Cardiovascular Rhythm: regular Heart Sounds: Present: S1 & S2 - Extremities Extremities: no ischemia Peripheral Pulses: within normal limits - Abdominal General gastrointestinal: soft, non-tender, non-distended - Integumentary Integumentary: Present: clear, warm, dry - Psychiatric Psychiatric: appropriate mood/affect, cooperative - Neurologic Neurologic: CNII-XII intact Results - Labs CBC & Chem 7: 09/28/19 05:16 09/28/19 05:16 Labs: Laboratory Last Values WBC 6.1 K/mm3 (4.5-11.0) 09/28/19 05:16 RBC 4.23 M/mm3 (3.65-5.03) 09/28/19 05:16 Hgb 12.5 gm/dl (10.1-14.3) 09/28/19 05:16 Hct 37.6 % (30.3-42.9) 09/28/19 05:16 MCV 89 fl (79-97) 09/28/19 05:16 MCH 30 pg (28-32) 09/28/19 05:16 MCHC 33 % (30-34) 09/28/19 05:16 RDW 15.1 % (13.2-15.2) 09/28/19 05:16 Plt Count 419 K/mm3 (140-440) 09/28/19 05:16 Lymph % (Auto) 32.0 % (13.4-35.0) 09/28/19 05:16 Will % (Auto) 12.7 % (0.0-7.3) H 09/28/19 05:16 Eos % (Auto) 1.7 % (0.0-4.3) 09/28/19 05:16 Baso % (Auto) 0.7 % (0.0-1.8) 09/28/19 05:16 Lymph # 2.0 K/mm3 (1.2-5.4) 09/28/19 05:16 Will # 0.8 K/mm3 (0.0-0.8) 09/28/19 05:16 Eos # 0.1 K/mm3 (0.0-0.4) 09/28/19 05:16 Baso # 0.0 K/mm3 (0.0-0.1) 09/28/19 05:16 Seg Neutrophils % 52.9 % (40.0-70.0) 09/28/19 05:16 Seg Neutrophils # 3.2 K/mm3 (1.8-7.7) 09/28/19 05:16 PT 17.7 Sec. (12.2-14.9) H 09/28/19 05:16 INR 1.43 (0.87-1.13) H 09/28/19 05:16 APTT 40.4 Sec. (24.2-36.6) H 09/28/19 05:16 Sodium 138 mmol/L (137-145) 09/28/19 05:16 Potassium 3.6 mmol/L (3.6-5.0) 09/28/19 05:16 Chloride 93.0 mmol/L (98-107) L 09/28/19 05:16 Carbon Dioxide 25 mmol/L (22-30) 09/28/19 05:16 Anion Gap 24 mmol/L 09/28/19 05:16 BUN 23 mg/dL (7-17) H 09/28/19 05:16 Creatinine 0.7 mg/dL (0.7-1.2) 09/28/19 05:16 Estimated GFR > 60 ml/min 09/28/19 05:16 BUN/Creatinine Ratio 33 % 09/28/19 05:16 Glucose 83 mg/dL (65-100) 09/28/19 05:16 Calcium 9.9 mg/dL (8.4-10.2) 09/28/19 05:16 Total Bilirubin 0.70 mg/dL (0.1-1.2) 09/27/19 17:03 AST 22 units/L (5-40) 09/27/19 17:03 ALT 16 units/L (7-56) 09/27/19 17:03 Alkaline Phosphatase 185 units/L (35-129) H 09/27/19 17:03 Total Protein 8.6 g/dL (6.3-8.2) H 09/27/19 17:03 Albumin 4.7 g/dL (3.9-5) 09/27/19 17:03 Albumin/Globulin Ratio 1.2 % 09/27/19 17:03 Active Medications - Current Medications Current Medications: Generic Name Dose Route Start Last Admin Trade Name Freq PRN Reason Stop Dose Admin Acetaminophen 650 mg 09/27/19 22:13 09/29/19 18:17 Tylenol PO 650 mg Q4H PRN Administration Pain MILD(1-3)/Fever >100.5/DUPREE Heparin Sodium (Porcine) 5,000 unit 09/28/19 06:00 09/30/19 14:25 Heparin SUB-Q 5,000 unit Q8HR JESSICA Administration Magnesium Hydroxide 30 ml 09/27/19 22:13 Milk Of Magnesia PO Q4H PRN Constipation Ondansetron HCl 4 mg 09/27/19 22:13 Zofran IV Q8H PRN Nausea And Vomiting Sodium Chloride 10 ml 09/28/19 10:00 09/30/19 09:57 Sodium Chloride Flush Syringe 10 Ml IV 10 ml BID JESSICA Administration Sodium Chloride 10 ml 09/27/19 22:13 Sodium Chloride Flush Syringe 10 Ml IV PRN PRN LINE FLUSH Nutrition/Malnutrition Assess - Dietary Evaluation Nutrition/Malnutrition Findings: Nutrition Notes Start: 09/28/19 11:10 Freq: Status: Active Protocol: Document 09/28/19 11:10 KEARA (Rec: 09/28/19 11:21 KEARA [id number]) Co-Sign 09/28/19 11:10 LP Nutrition Notes Need for Assessment generated from: MD Order Initial or Follow up Assessment Current Diagnosis Coronary Artery Disease, Hypertension Other Pertinent Diagnosis Hx CABG, arthritis, fibromyalgia Current Diet Regular diet Labs/Tests BUN 23 Pertinent Medications Reviewed Height 5 ft 5 in Weight 49.89 kg Usual Body Weight 54.5 kg [place] Body Weight (kg) 56.81 BMI 18.3 Weight change and time frame 8.4% wt loss in unknow time frame Weight Status Underweight Subjective/Other Information RD screen for skin risk assessment. Horace score was 20. Pt was lethargic during time of visit. Pt stated she had not experience wt loss. 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 Pt stated her appetite was fair currently and ate 25% of breakfast. Offered pt Ensure Enlive for extra kcal and protein and she agreed. Noted slight temporal, clavicle, and hand depletion. 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 No Is Patient Ambulatory and/or Out of Bed No REE-([facility]-confined to bed) 1229.856 Kcal/Kg value to use for calculation 30 Approximate Energy Requirements Using 1497 kcal/Kg Calculation Used for Recommendations Kcal/kg Additional Notes Protein: 60-75g (1.2-1.5g/kg) Fluid: 1ml/kcal Nutrition Intervention Change Diet Order: Regular Add Supplement/Snack (indicate name/kcal Ensure Enlive BID /protein ) Provides kCal: 700 Provides Protein (gm) 40 Goal #1 Meet at least 90% of energy and protein via PO and ONS intakes Goal #2 Wt maintenance Anticipated Discharge Needs: Regular Follow-Up By: 10/02/19 Additional Comments F/U for PO and ONS tolerance
[2019-10-01] MEDS: HEPARIN 5,000 UNIT/1 ML VIAL SUB-Q SCH ×2 (05:07→14:44)
[2019-10-01] MEDS: ACETAMINOPHEN 325 MG TAB PO PRN (14:42)
[2019-10-01 14:53] VITALS: BP 123/72
== END 2019-10-01 17:05 | disposition home health service (06) | DRG 555 ==
LOC: ED 15:59 → 2B-ACE 21:41 → OBSVTOIN 09-28 16:10
PROVIDERS: ADMIT Internal Medicine Geriatric Medicine; ATTEND Internal Medicine
DX: M25.552 Pain in left hip (principal); E43 Unspecified severe protein-calorie malnutrition; Z68.1 Body mass index [BMI] 19.9 or less, adult; M48.56XA Collapsed vertebra, not elsewhere classified, lumbar region, initial encounter for fracture; S90.32XA Contusion of left foot, initial encounter; R10.2 Pelvic and perineal pain; M19.90 Unspecified osteoarthritis, unspecified site; I10 Essential (primary) hypertension; K21.9 Gastro-esophageal reflux disease without esophagitis; I48.91 Unspecified atrial fibrillation; R53.81 Other malaise; Z96.643 Presence of artificial hip joint, bilateral; M79.7 Fibromyalgia; W18.39XA Other fall on same level, initial encounter; Y93.89 Activity, other specified; Y92.89 Other specified places as the place of occurrence of the external cause; Z90.49 Acquired absence of other specified parts of digestive tract; Z95.1 Presence of aortocoronary bypass graft; Z90.710 Acquired absence of both cervix and uterus; Z95.0 Presence of cardiac pacemaker; Z82.49 Family history of ischemic heart disease and other diseases of the circulatory system; Z80.1 Family history of malignant neoplasm of trachea, bronchus and lung; Z79.899 Other long term (current) drug therapy; Y99.8 Other external cause status
CPT/HCPCS: 36415; 74176; 80048; 80053; 85025; 85610; 85730; 96374; G0378; J1170; J1644

== ENCOUNTER 2019-10-20 12:37 | Emergency (ER) | payer MEDICARE, OTHER ==
[2019-10-20] MEDS ORDERED: oxyCODONE /ACETAMINOPHEN 5-325MG TAB PO ONE (14:18)
--- NOTE | 2019-10-20 14:24 | Emergency Department Report ---
Chief Complaint: Fall Stated Complaint: R LEG PAIN - HPI History of Present Illness: 69 yo female with hx b/l hip surgery and left femur surgery fall forward after chair tilted 1 week ago c/o right hip/inguinal pain and right lower back pain since fall no unable to bear weight and ambulate recent pain/debility admission pt out of percocet Ortho Jose Juan - Exam Vital Signs: Vital Signs 10/20/19 10/20/19 12:41 12:42 Temperature 98.1 F 98.1 F Pulse Rate 63 63 Respiratory 20 20 Rate Blood Pressure 124/68 Blood Pressure 124/68 [Right] O2 Sat by Pulse 100 124 H Oximetry pulse ox 99 Physical Exam: lower back tenderness, right sided right hip and inguinal tenderness lungs ctab cv rrr MSE screening note: Focused history and physical exam performed. Due to findings the following was ordered: xr lower back, right hip percocet for pain ED Disposition for MSE Condition: Stable
--- NOTE | 2019-10-20 14:57 | Emergency Department Report ---
ED Fall HPI - General Chief Complaint: Fall Stated Complaint: R LEG PAIN Time Seen by Provider: 10/20/19 14:47 Source: patient, EMS Mode of arrival: Wheelchair - History of Present Illness Initial Comments: This 69-year-old female states about 1 week ago while she sitting in the chair,the chair slipped from underneath her and she fell onto her bottom. She denied any head or neck injury. Patient states for the first 3 days she was able to walk fine with no problems after the fall but as of Tuesday she developed worsening pain in her right groin and lower back. She denies any bowel or bladder incontinence. She denies any neck or upper back pain. Pain is to her lower back and right groin -: week(s) (1) Fall From: chair When Fall Occurred: other (1 week ago) Place Fall Occurred: home Prolonged Down Time?: no Symptoms Prior to Fall: none Location: back, other (right hip) Severity: moderate Associated Symptoms: unable to walk (due to pain ). denies: headache, neck pain, numbness, weakness, chest paint, shortness of breath, abdominal pain, hematuria, lightheaded, vertigo, confusion - Related Data Previous Rx's Medication Instructions Recorded Last Taken Type Apixaban [Eliquis] 2.5 mg PO BID #30 tablet 03/20/19 05/01/19 Rx Metoprolol [Lopressor TAB] 12.5 mg PO BID #60 tablet 03/20/19 05/01/19 Rx oxyCODONE /ACETAMINOPHEN [Percocet 1 tab PO Q8H PRN #14 tablet 04/26/19 05/01/19 Rx 5/325 mg] cephALEXin [Keflex] 500 mg PO Q8HR #15 cap 05/03/19 Unknown Rx Naproxen 250 mg PO DAILY #7 tablet 09/29/19 Unknown Rx oxyCODONE /ACETAMINOPHEN [Percocet 1 tab PO Q6HR PRN #10 tablet 09/29/19 Unknown Rx 5/325] oxyCODONE /ACETAMINOPHEN [Percocet 1 tab PO Q6HR PRN #15 tablet 10/20/19 Unknown Rx 5/325] Allergies Allergy/AdvReac Type Severity Reaction Status Date / Time atorvastatin [From Lipitor] Allergy Unknown Verified 02/22/19 18:11 metoclopramide [From Reglan] Allergy Unknown Verified 02/22/19 21:06 promethazine [From Phenergan] Allergy Unknown Verified 02/22/19 21:06 ED Review of Systems ROS: Stated complaint: R LEG PAIN Other details as noted in HPI Comment: All other systems reviewed and negative Constitutional: denies: chills, fever ENT: denies: ear pain, throat pain Respiratory: denies: cough, orthopnea, shortness of breath, SOB with exertion, SOB at rest Cardiovascular: denies: chest pain, palpitations, dyspnea on exertion, orthopnea Endocrine: no symptoms reported Gastrointestinal: denies: abdominal pain, nausea, vomiting, diarrhea, constipation, hematemesis Genitourinary: denies: urgency, dysuria, hematuria Musculoskeletal: back pain Skin: denies: rash, lesions Neurological: denies: headache, weakness Psychiatric: denies: anxiety, depression ED Past Medical Hx - Past Medical History Previous Medical History?: Yes Hx Hypertension: Yes Hx GERD: Yes Hx Arthritis: Yes Additional medical history: A. FIB - Surgical History Past Surgical History?: Yes Hx Open Heart Surgery: Yes (CABG) Hx Pacemaker: Yes (Left chest) Hx Internal Defibrillator: Yes (Left chest) - Social History Smoking Status: Never Smoker Substance Use Type: Prescribed - Medications Home Medications: Home Medications Medication Instructions Recorded Confirmed Last Taken Type Apixaban [Eliquis] 2.5 mg PO BID #30 tablet 03/20/19 09/28/19 05/01/19 Rx Metoprolol [Lopressor TAB] 12.5 mg PO BID #60 tablet 03/20/19 09/28/19 05/01/19 Rx oxyCODONE /ACETAMINOPHEN [Percocet 1 tab PO Q8H PRN #14 tablet 04/26/19 09/28/19 05/01/19 Rx 5/325 mg] cephALEXin [Keflex] 500 mg PO Q8HR #15 cap 05/03/19 09/28/19 Unknown Rx Naproxen 250 mg PO DAILY #7 tablet 09/29/19 Unknown Rx oxyCODONE /ACETAMINOPHEN [Percocet 1 tab PO Q6HR PRN #10 tablet 09/29/19 Unknown Rx 5/325] oxyCODONE /ACETAMINOPHEN [Percocet 1 tab PO Q6HR PRN #15 tablet 10/20/19 Unknown Rx 5/325] ED Physical Exam - General Limitations: Other General appearance: alert, in no apparent distress - Head Head exam: Present: atraumatic - Eye Eye exam: Present: normal appearance - ENT ENT exam: Present: mucous membranes moist - Neck Neck exam: Present: normal inspection - Respiratory Respiratory exam: Present: normal lung sounds bilaterally. Absent: respiratory distress, wheezes, rales - Cardiovascular Cardiovascular Exam: Present: regular rate, normal heart sounds - GI/Abdominal GI/Abdominal exam: Present: soft, normal bowel sounds. Absent: distended, tenderness - Extremities Exam Extremities exam: Present: normal capillary refill - Neurological Exam Neurological exam: Present: alert - Psychiatric Psychiatric exam: Present: normal affect - Skin Skin exam: Present: warm, dry, intact, normal color ED Course Vital Signs 10/20/19 10/20/19 12:41 12:42 Temperature 98.1 F 98.1 F Pulse Rate 63 63 Respiratory 20 20 Rate Blood Pressure 124/68 Blood Pressure 124/68 [Right] O2 Sat by Pulse 100 124 H Oximetry - Reevaluation(s) Reevaluation #2: 10/20/19 15:44 Pt states her pain is unchanged findings of X-ray discussed with patient . States she will follow up with Dr. Manzano since he did her previous surgery. ED Medical Decision Making - Radiology Data Radiology results: report reviewed L/Spine Xray IMPRESSION: 1. Acute L1 superior endplate compression fracture with about 20% height loss. 2. Stable L3 superior endplate compression fracture. Right HIP Xray FINDINGS: BONES / JOINT(S): No acute fracture or subluxation. Right femur cephalomedullary nail is intact. No periprosthetic fracture or evidence of hardware failure or loosening. Heterotopic ossification above the femoral neck is noted, unchanged - Medical Decision Making This 69-year-old female fell off her chair onto her bottom approximately one week ago. X-rays of her lumbar spine and hip done she has an acute L1 superior endplate compression fracture and she has a stable fracture. I discussed with Kamaljit Chauhan. He agrees with plan of care for pain management and follow up with orthopedic. Critical Care Time: No Critical care attestation.: If time is entered above; I have spent that time in minutes in the direct care of this critically ill patient, excluding procedure time. ED Disposition Clinical Impression: Lumbar compression fracture Qualifiers: Encounter type: initial encounter Lumbar vertebra fracture level: L1 Qualified Code(s): S32.010A - Wedge compression fracture of first lumbar vertebra, initial encounter for closed fracture Disposition: - TO HOME OR SELFCARE Is pt being admited?: No Does the pt Need Aspirin: No Condition: Stable Instructions: Vertebral Compression Fracture (ED) Additional Instructions: Please call Dr Manzano office and follow as soon as possible. Prescriptions: oxyCODONE /ACETAMINOPHEN [Percocet 5/325] 1 tab PO Q6HR PRN #15 tablet PRN Reason: Pain Referrals: MERARI GREER JR, MD [Primary Care Provider] - 3-5 Days JAIRO MANZANO MD [Staff Physician] - 3-5 Days
--- NOTE | 2019-10-20 15:20 | XRay Report ---
LUMBAR SPINE 3 VIEWS INDICATION / CLINICAL INFORMATION: lower back pain s/p fall. COMPARISON: CT scan of the abdomen and pelvis from 09/27/2019 FINDINGS: VERTEBRAE: Acute compression fracture of the superior endplate of L1 vertebral body with about 20% he ight loss. Stable compression fracture of the L3 superior endplate in comparison to the recent CT sca n. Remainder of the visualized vertebral body heights are preserved. Diffuse osseous demineralization . No significant malalignment. DISC SPACES / FACET JOINTS:No significant abnormality. PARASPINAL SOFT TISSUES:No significant abnormality. ADDITIONAL FINDINGS: Bilateral femoral hardware is incompletely imaged. IMPRESSION: 1. Acute L1 superior endplate compression fracture with about 20% height loss. 2. Stable L3 superior endplate compression fracture. Signer Name: Ti Payne MD Signed: 10/20/2019 3:15 PM Workstation Name: [id number]
--- NOTE | 2019-10-20 15:24 | XRay Report ---
RIGHT HIP 3 VIEW(S) INDICATION / CLINICAL INFORMATION: right hip pain after fall COMPARISON: CT scan from 09/27/2019 FINDINGS: BONES / JOINT(S): No acute fracture or subluxation. Right femur cephalomedullary nail is intact. No p eriprosthetic fracture or evidence of hardware failure or loosening. Heterotopic ossification above t he femoral neck is noted, unchanged. Moderately advanced osteoarthrosis of both hips. The left femur hardware is incompletely imaged, but the visualized portion is unremarkable. Diffuse osseous deminera lization. SOFT TISSUES: No significant abnormality. Signer Name: Ti Payne MD Signed: 10/20/2019 3:20 PM Workstation Name: [id number]
[2019-10-20] MEDS ORDERED: oxyCODONE 5 MG TAB PO ONE (15:46)
[2019-10-20 16:36] VITALS: BP 137/73
== END 2019-10-20 16:30 | disposition home or self-care (01) ==
LOC: ED 12:37
DX: S32.010A Wedge compression fracture of first lumbar vertebra, initial encounter for closed fracture (principal); I10 Essential (primary) hypertension; K21.9 Gastro-esophageal reflux disease without esophagitis; M19.90 Unspecified osteoarthritis, unspecified site; Z98.890 Other specified postprocedural states; Z79.899 Other long term (current) drug therapy; Z88.8 Allergy status to other drugs, medicaments and biological substances; W01.0XXA Fall on same level from slipping, tripping and stumbling without subsequent striking against object, initial encounter; Y93.89 Activity, other specified; Y92.89 Other specified places as the place of occurrence of the external cause; Y99.8 Other external cause status
CPT/HCPCS: 72100

== ENCOUNTER 2020-08-05 13:49 | Outpatient (CLI) | payer MEDICARE, OTHER ==
--- NOTE | 2020-08-05 16:25 | XRay Report ---
THORACIC SPINE 2 VIEWS INDICATION: BACK PAIN. COMPARISON: None. IMPRESSION: Normal alignment. Osteopenia is evident. There is mild loss of height at T9 suggesting a superior endplate fracture. The age of this is indeterminate. The remaining thoracic vertebra are normal height and alignment. Mild multilevel degenerative changes are noted. LUMBOSACRAL SPINE 3 VIEWS INDICATION: BACK PAIN. COMPARISON: 10/20/2019 IMPRESSION: Normal alignment. Osteopenia is evident. Chronic superior endplate deformities at L1 a nd L3 are unchanged with approximately 10-20% loss of height. There is a new L2 superior endplate def ormity with 10-20% loss of height since the previous exam. Spondylosis is unchanged. Signer Name: Moshe Griffin Jr, MD Signed: 08/05/2020 4:21 PM Workstation Name: [id number]
== END 2020-08-05 13:50 | disposition home or self-care (01) ==
LOC: XRAY 13:49
PROVIDERS: ATTEND Orthopaedic Surgery
DX: M47.815 Spondylosis without myelopathy or radiculopathy, thoracolumbar region (principal)
CPT/HCPCS: 72070; 72100

== ENCOUNTER 2020-08-11 16:34 | Emergency (ER) | payer MEDICARE, OTHER ==
[2020-08-11 16:50] VITALS: BP 132/73
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
== END 2020-08-11 18:30 | disposition home or self-care (01) ==
LOC: ED 16:34
DX: S39.012A Strain of muscle, fascia and tendon of lower back, initial encounter (principal); S70.01XA Contusion of right hip, initial encounter; I10 Essential (primary) hypertension; K21.9 Gastro-esophageal reflux disease without esophagitis; M13.88 Other specified arthritis, other site; Z95.818 Presence of other cardiac implants and grafts; Z79.899 Other long term (current) drug therapy; Z88.1 Allergy status to other antibiotic agents; Z88.6 Allergy status to analgesic agent; V89.2XXA Person injured in unspecified motor-vehicle accident, traffic, initial encounter; Y93.89 Activity, other specified; Y92.410 Unspecified street and highway as the place of occurrence of the external cause; Y99.8 Other external cause status
CPT/HCPCS: 72100; 72170; 99283

== ENCOUNTER 2020-09-04 13:32 | Outpatient (CLI) | payer MEDICARE, OTHER ==
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
--- NOTE | 2020-09-04 16:56 | Cat Scan Report ---
CT LUMBAR SPINE WITHOUT CONTRAST INDICATION: LOWER BACK PAIN. TECHNIQUE: Axial CT images of the lumbar spine were obtained after administration of intrathecal contrast. Sagi ttal and coronal reformatted images were produced. All CT scans at this location are performed using CT dose reduction for ALARA by means of automated exposure control. COMPARISON: CT abdomen pelvis 09/27/2019 and lumbar spine series 10/20/2019 and 08/11/2020. FINDINGS: POST-SURGICAL CHANGES: None. ALIGNMENT: Normal alignment is maintained throughout the lumbar region. VERTEBRAE: Compression fractures are identified at the L1, L2, L3, L4 and L5 levels. The L3 compressi on fracture dates back through CT abdomen pelvis 09/27/2019. The L1 compression fracture was first demo nstrated on lumbar spine series dated 10/20/2019. The L2 compression fracture was first demonstrated on lumbar spine series 08/11/2020. Superior endplate deformity at L4 developed between 10/20/2019 and . Lumbar spine series 08/11/2020 is suboptimal with difficulty in patient positioning. A true lateral view was not obtained. This makes evaluation of the L5 vertebral body difficult. The L5 compr ession fracture has developed since lumbar spine series 10/20/2019. INTERVERTEBRAL DISCS: Disc height is fairly well maintained at and above the L4-5 level. Advanced dis c desiccation and disc vacuum phenomena are noted at the lumbosacral junction. [id number] ANALYSIS: L1-2: No significant disc abnormality, spinal canal stenosis, or neural foraminal stenosis. Incidenta l note is made of calcification within the nucleus pulposus to the right of the midline. L2-3: Bilateral facet arthropathy is demonstrated. No significant disc abnormality, spinal canal sten osis, or neural foraminal stenosis. L3-4: Bilateral facet arthritic changes are noted. Mild broad-based disc bulge is present. Central sp inal canal and neuroforamina are adequate in size. No significant disc abnormality, spinal canal sten osis, or neural foraminal stenosis. L4-5: Bilateral facet arthropathy is noted. No significant disc abnormality, spinal canal stenosis, o r neural foraminal stenosis. L5-S1: Loss of disc height and disc vacuum phenomena are observed. Bilateral facet arthritic changes are demonstrated. Loss of disc height and facet arthropathy contributes to mild left-sided and modera te right-sided neuroforaminal stenosis at the L5 nerve root level. Canal is adequate in size. PARASPINAL SOFT TISSUES: No significant abnormality. ADDITIONAL FINDINGS: None. IMPRESSION: 1. Multiple lumbar compression fractures are identified. The most remote of these fractures is at the L3 level which has present since 09/27/2019. The L1 compression fracture has been present since 10/20/19. Compression fractures at the L2, L4 and L5 vertebral bodies have developed in the interval bete n 10/20/2019 and 08/11/2020. Signer Name: Gio Cisneros MD Signed: 09/04/2020 4:52 PM Workstation Name: [id number]
== END 2020-09-04 13:33 | disposition home or self-care (01) ==
LOC: CT 13:32
PROVIDERS: ATTEND Orthopaedic Surgery
DX: M16.12 Unilateral primary osteoarthritis, left hip (principal); M25.452 Effusion, left hip; S32.019D Unspecified fracture of first lumbar vertebra, subsequent encounter for fracture with routine healing; S32.029D Unspecified fracture of second lumbar vertebra, subsequent encounter for fracture with routine healing; S32.039D Unspecified fracture of third lumbar vertebra, subsequent encounter for fracture with routine healing; S32.049D Unspecified fracture of fourth lumbar vertebra, subsequent encounter for fracture with routine healing; S32.059D Unspecified fracture of fifth lumbar vertebra, subsequent encounter for fracture with routine healing; X58.XXXD Exposure to other specified factors, subsequent encounter; Z98.890 Other specified postprocedural states
CPT/HCPCS: 72131

== ENCOUNTER 2020-10-21 12:08 | Outpatient (CLI) | payer MEDICARE, OTHER ==
--- NOTE | 2020-10-21 13:27 | Cat Scan Report ---
CT LEFT LOWER EXTREMITY WITHOUT CONTRAST INDICATION : PAIN IN LEFT KNEE. TECHNIQUE: Axial imaging performed through the left knee without the use of contrast. All CT scans at this location are performed using CT dose reduction for ALARA by means of automated exposure contr ol. COMPARISON: No relevant comparison FINDINGS: Osteopenia is evident. An intramedullary elida in the distal left femur is partially imaged, correlate with history. There is no evidence for acute fracture or bone lesion. Mild to moderate oste oarthritic changes are identified which are most pronounced in the patellofemoral space. Small enthes ophytes are identified from the superior and inferior patella. No significant joint effusion or soft tissue injury is detected. IMPRESSION: Osteopenia. Mild to moderate osteoarthritic changes which are most pronounced in the patellofemoral space. No acute bony injury is appreciated. Signer Name: Moshe Griffin Jr, MD Signed: 10/21/2020 1:22 PM Workstation Name: [id number]
== END 2020-10-21 12:09 | disposition home or self-care (01) ==
LOC: CT 12:08
PROVIDERS: ATTEND Orthopaedic Surgery
DX: M17.12 Unilateral primary osteoarthritis, left knee (principal); M85.872 Other specified disorders of bone density and structure, left ankle and foot; M76.9 Unspecified enthesopathy, lower limb, excluding foot

== ENCOUNTER 2021-01-08 15:49 | Emergency (ER) | payer MEDICARE, OTHER ==
--- NOTE | 2021-01-08 16:34 | XRay Report ---
RIGHT SHOULDER 2 VIEWS INDICATION / CLINICAL INFORMATION: FALL SHOULDER PAIN COMPARISON: None available. FINDINGS: BONES / JOINT(S): There is a fracture of the right humeral neck is mildly displaced. No significant a rthritis. SOFT TISSUES: There is soft tissue swelling ADDITIONAL FINDINGS: None. Signer Name: Caleb Israel MD Signed: 01/08/2021 4:30 PM Workstation Name: [id number]
[2021-01-08] MEDS ORDERED: MORPHINE 4 MG/1 ML INJ IV ONE (16:53)
[2021-01-08] MEDS ORDERED: ONDANSETRON 4 MG ODT TAB PO ONE (16:54)
[2021-01-08] MEDS ORDERED: KETOROLAC 30 MG/1 ML INJ IM ONE (16:54)
--- NOTE | 2021-01-08 17:00 | Emergency Department Report ---
ED Extremity Problem HPI - General Chief complaint: Upper Respiratory Infection Stated complaint: R SHOULDER INJURY Time Seen by Provider: 01/08/21 16:44 Source: EMS Mode of arrival: Wheelchair Limitations: No Limitations - History of Present Illness Initial comments: Patient is a 70-year-old female who suffered a fall at home today. Patient states she has been very tired because she is not sleeping well after the of her . States that she was standing in the kitchen and felt as though she was going to fall asleep and she turned to try to leave the room to go lie down and she fell. She open her eyes while on the way down to the ground. She was able to put her right arm out but suffered injury to her right shoulder. Patient states the pain is right shoulder is 10 out of 10 with movement. Patient has a history of bilateral hip fractures approximately a year and half ago and has been doing relatively well. She is off complaining of some right groin pain. States there is no pain in the hip and she can flex the hip and bear weight. Patient denies any head injury chest pain shortness of breath cough cold congestion nausea vomiting diarrhea at this time. - Related Data Previous Rx's Medication Instructions Recorded Last Taken Type Apixaban [Eliquis] 2.5 mg PO BID #30 tablet 03/20/19 05/01/19 Rx Metoprolol [Lopressor TAB] 12.5 mg PO BID #60 tablet 03/20/19 05/01/19 Rx oxyCODONE /ACETAMINOPHEN [Percocet 1 tab PO Q8H PRN #14 tablet 04/26/19 05/01/19 Rx 5/325 mg] cephALEXin [Keflex] 500 mg PO Q8HR #15 cap 05/03/19 Unknown Rx Naproxen 250 mg PO DAILY #7 tablet 09/29/19 Unknown Rx oxyCODONE /ACETAMINOPHEN [Percocet 1 tab PO Q6HR PRN #10 tablet 09/29/19 Unknown Rx 5/325] oxyCODONE /ACETAMINOPHEN [Percocet 1 tab PO Q6HR PRN #15 tablet 10/20/19 Unknown Rx 5/325] methOCARBAMOL [Robaxin TAB] 500 mg PO Q6HR #20 tablet 08/11/20 Unknown Rx methylPREDNISolone [Medrol 4MG 4 mg PO ONCE #1 tab.ds.pk 08/11/20 Unknown Rx DOSEPAK (21 tabs)] HYDROcodone/APAP 5-325 [[place] 1 each PO Q6HR PRN #14 tablet 01/08/21 Unknown Rx 5/325] methOCARBAMOL [Robaxin TAB] 500 mg PO Q6H PRN #14 tablet 01/08/21 Unknown Rx Allergies Allergy/AdvReac Type Severity Reaction Status Date / Time atorvastatin [From Lipitor] Allergy Unknown Verified 01/08/21 15:58 metoclopramide [From Reglan] Allergy Unknown Verified 01/08/21 15:58 promethazine [From Phenergan] Allergy Unknown Verified 01/08/21 15:58 ED Review of Systems ROS: Stated complaint: R SHOULDER INJURY Other details as noted in HPI Comment: All other systems reviewed and negative ED Past Medical Hx - Past Medical History Hx Hypertension: Yes Hx Diabetes: Yes Hx GERD: Yes Hx Arthritis: Yes Additional medical history: A. FIB - Surgical History Hx Open Heart Surgery: Yes (CABG) Hx Pacemaker: Yes (Left chest) Hx Internal Defibrillator: Yes (Left chest) - Social History Smoking Status: Never Smoker Substance Use Type: None - Medications Home Medications: Home Medications Medication Instructions Recorded Confirmed Last Taken Type Apixaban [Eliquis] 2.5 mg PO BID #30 tablet 03/20/19 09/28/19 05/01/19 Rx Metoprolol [Lopressor TAB] 12.5 mg PO BID #60 tablet 03/20/19 09/28/19 05/01/19 Rx oxyCODONE /ACETAMINOPHEN [Percocet 1 tab PO Q8H PRN #14 tablet 04/26/19 09/28/19 05/01/19 Rx 5/325 mg] cephALEXin [Keflex] 500 mg PO Q8HR #15 cap 05/03/19 09/28/19 Unknown Rx Naproxen 250 mg PO DAILY #7 tablet 09/29/19 Unknown Rx oxyCODONE /ACETAMINOPHEN [Percocet 1 tab PO Q6HR PRN #10 tablet 09/29/19 Unknown Rx 5/325] oxyCODONE /ACETAMINOPHEN [Percocet 1 tab PO Q6HR PRN #15 tablet 10/20/19 Unknown Rx 5/325] methOCARBAMOL [Robaxin TAB] 500 mg PO Q6HR #20 tablet 08/11/20 Unknown Rx methylPREDNISolone [Medrol 4MG 4 mg PO ONCE #1 tab.ds.pk 08/11/20 Unknown Rx DOSEPAK (21 tabs)] HYDROcodone/APAP 5-325 [[place] 1 each PO Q6HR PRN #14 tablet 01/08/21 Unknown Rx 5/325] methOCARBAMOL [Robaxin TAB] 500 mg PO Q6H PRN #14 tablet 01/08/21 Unknown Rx ED Physical Exam - General Limitations: No Limitations General appearance: alert, in no apparent distress, other (sityting in wheel chair) - Head Head exam: Present: atraumatic, normocephalic - Eye Eye exam: Present: normal appearance - ENT ENT exam: Present: mucous membranes moist - Neck Neck exam: Present: normal inspection - Respiratory Respiratory exam: Absent: respiratory distress - GI/Abdominal GI/Abdominal exam: Absent: distended - Extremities Exam Extremities exam: Present: normal inspection - Expanded Upper Extremity Exam Right Shoulder Exam: Present: tenderness, swelling, tenderness over AC joint. Absent: full ROM, deformity - Expanded Lower Extremity Exam Right Hip exam: Present: tenderness (right groin region) Upper Leg exam: Present: normal inspection, full ROM Knee exam: Present: normal inspection, full ROM Lower Leg exam: Present: normal inspection, full ROM - Back Exam Back exam: Present: normal inspection - Neurological Exam Neurological exam: Present: alert, oriented X3 - Psychiatric Psychiatric exam: Present: normal affect, normal mood - Skin Skin exam: Present: warm, dry, intact, normal color. Absent: rash ED Course Vital Signs 01/08/21 15:59 Temperature 97.7 F Pulse Rate 60 Respiratory 20 Rate Blood Pressure 119/67 O2 Sat by Pulse 98 Oximetry ED Medical Decision Making - Radiology Data Ordering Physician: LANETTE CHIU MD Date of Service: 01/08/21 Procedure(s): XR shoulder 2+V RT Accession Number(s): [id number] cc: ED MD ARAM Fluoro Time In Minutes: RIGHT SHOULDER 2 VIEWS INDICATION / CLINICAL INFORMATION: FALL SHOULDER PAIN COMPARISON: None available. FINDINGS: BONES / JOINT(S): There is a fracture of the right humeral neck is mildly displaced. No significant arthritis. SOFT TISSUES: There is soft tissue swelling ADDITIONAL FINDINGS: None. Signer Name: Caleb Israel MD Signed: 01/08/2021 4:30 PM Workstation Name: [id number] [address] [place] [address] XRay Report Signed Patient: GAEL GUILLEN MR#: [id number] : 1950 Acct:[id number] Age/Sex: 70 / F ADM Date: 01/08/21 Loc: ED Attending Dr: Ordering Physician: CEDRICK DELGADILLO MD Date of Service: 01/08/21 Procedure(s): XR pelvis 1-2V Accession Number(s): [id number] cc: CEDRICK DELGADILLO MD Fluoro Time In Minutes: PELVIS HISTORY: COMPARISON: None. TECHNIQUE: AP radiograph(s) of the pelvis obtained. FINDINGS: Bones: Fracture of the superior pubic ramus on the right. Bones are severely osteopenic. Bilateral hip nail lungs are noted Joint spaces: Maintained. Soft Tissues: No significant abnormality. Additional findings: None. IMPRESSION: 1. Superior pubic ramus fracture on the right Signer Name: José Luis Harding MD Signed: 01/08/2021 5:21 PM Workstation Name: [id number] Transcribed By: WG Dictated By: José Luis Harding MD Electronically Authenticated By: José Luis Harding MD Signed Date/Time: 01/08/21 1721 - Medical Decision Making Patient was having difficulty bearing weight on the right. Her hip prosthesis. Normal however she does have a right-sided superior ramus fracture. Patient with the assistance of nursing staff had a coaptation splint placed on the right upper extremity. Patient tolerated procedure well. Patient will follow up with orthopedics. She has seen Dr. Manzano in the past. Patient was sent be sent home with medications for pain control. Follow-up should be within the next week. Fracture care was performed. Critical care attestation.: If time is entered above; I have spent that time in minutes in the direct care of this critically ill patient, excluding procedure time. ED Disposition Clinical Impression: Humerus fracture Qualifiers: Encounter type: initial encounter Humerus Location: surgical neck Fracture type: closed Fracture morphology: 2-part Fracture alignment: displaced Laterality: right Qualified Code(s): S42.221A - 2-part displaced fracture of surgical neck of right humerus, initial encounter for closed fracture Fracture of superior ramus of right pubis Qualifiers: Encounter type: initial encounter Disposition: - TO HOME OR SELFCARE Is pt being admited?: No Does the pt Need Aspirin: No Condition: Stable Instructions: Cast or Splint Care, Adult, [id number], Humerus Fracture Treated With Immobilization, [id number], Simple Pelvic Fracture, Adult Referrals: JAIRO MANZANO MD [Staff Physician] - 3-5 Days Time of Disposition: 18:27
--- NOTE | 2021-01-08 17:26 | XRay Report ---
PELVIS HISTORY: COMPARISON: None. TECHNIQUE: AP radiograph(s) of the pelvis obtained. FINDINGS: Bones: Fracture of the superior pubic ramus on the right. Bones are severely osteopenic. Bilateral hi p nail lungs are noted Joint spaces: Maintained. Soft Tissues: No significant abnormality. Additional findings: None. IMPRESSION: 1. Superior pubic ramus fracture on the right Signer Name: José Luis Harding MD Signed: 01/08/2021 5:21 PM Workstation Name: [id number]
[2021-01-08 18:35] VITALS: BP 123/87
== END 2021-01-08 19:40 | disposition home or self-care (01) ==
LOC: ED 15:49
DX: S42.291A Other displaced fracture of upper end of right humerus, initial encounter for closed fracture (principal); S32.591A Other specified fracture of right pubis, initial encounter for closed fracture; I10 Essential (primary) hypertension; E11.9 Type 2 diabetes mellitus without complications; K21.9 Gastro-esophageal reflux disease without esophagitis; M19.91 Primary osteoarthritis, unspecified site; Z98.890 Other specified postprocedural states; Z79.899 Other long term (current) drug therapy; Z88.8 Allergy status to other drugs, medicaments and biological substances; W19.XXXA Unspecified fall, initial encounter; Y93.89 Activity, other specified; Y92.89 Other specified places as the place of occurrence of the external cause; Y99.8 Other external cause status
CPT/HCPCS: 29105; 72170; 73030; 96372; 96374; 99284; J1885; J2270; Q0162

== ENCOUNTER 2021-01-27 22:35 | Emergency (ER) | payer MEDICARE, OTHER ==
--- NOTE | 2021-01-27 23:12 | Event Note ---
ED Screening Note ED Screening Note: pt had a fall just [employer] she lives at home alone has frequent falls recently diagnosed with clavicle fracture and pelvic fracture has dried blood on mouth hit head and face states she was sitting in her chair and reached for water c/o right clavicle pain, back pain, facial pain denies LOC This initial assessment/diagnostic orders/clinical plan/treatment(s) is/are subject to change based on patients health status, clinical progression and re- assessment by fellow clinical providers in the ED. Further treatment and workup at subsequent clinical providers discretion. Patient/guardian urged not to elope from the ED as their condition may be serious if not clinically assessed and managed. Initial orders include: Labs, EKG, urine, CT, x-ray
[2021-01-27 23:57] LABS: Basophils % (Auto) 0.2 % (0.0-1.8); Hematocrit 22.2 % (30.3-42.9); Hemoglobin 7.6 gm/dl (10.1-14.3); Lymphocytes # (Auto) 0.6 K/mm3 (1.2-5.4); Lymphocytes % (Auto) 6.3 % (13.4-35.0); Mean Corpuscular HGB Conc 34 % (30-34); Mean Corpuscular Volume 95 fl (79-97); Monocytes # (Auto) 0.7 K/mm3 (0.0-0.8); Monocytes % (Auto) 7.2 % (0.0-7.3); Platelet Count 332 K/mm3 (140-440); Red Blood Count 2.34 M/mm3 (3.65-5.03)
[2021-01-28 01:03] LABS: Alanine Aminotransferase 10 units/L (7-56); Albumin 4.1 g/dL (3.9-5); BUN/Creatinine Ratio 37; Blood Urea Nitrogen 33 mg/dL (7-17); Calcium 9.1 mg/dL (8.4-10.2); Hemolysis Index 0
[2021-01-28] MEDS ORDERED: ONDANSETRON 4 MG/2 ML INJ IV ONE (03:00)
[2021-01-28] MEDS ORDERED: MORPHINE 4 MG/1 ML INJ IV ONE (03:00)
[2021-01-28] MEDS ORDERED: SODIUM CHLORIDE 0.9% 1000 ML 1,000 ML IV ONE (03:01)
--- NOTE | 2021-01-28 03:05 | Emergency Department Report ---
ED Fall HPI - General Chief Complaint: Fall Stated Complaint: HIP/LEFTSHOULDER PAIN Time Seen by Provider: 01/27/21 23:06 Source: EMS Mode of arrival: Wheelchair - History of Present Illness Initial Comments: Patient is 70 years old female with history of hypertension, diabetes, atrial fibrillation and arthritis. Patient is taking Eliquis. Patient lived by herself at home. Patient with history of frequent falls. Patient stated that she was in a chair and she leaned forward to grab a cup of water and she lost balance and fell face down she hit her face. Patient coming with dried blood in her mouth. She is complaining of lower back pain. Patient denied any loss of consciousness. Patient is laying on her side and refused to lay on her back. MD Complaint: fall -: Last night Fall From: wheelchair Fall Witnessed: no Place Fall Occurred: home Loss of Consciousness: none Prolonged Down Time?: no Symptoms Prior to Fall: none Location: head, face, back Severity: moderate - Related Data Previous Rx's Medication Instructions Recorded Last Taken Type Apixaban [Eliquis] 2.5 mg PO BID #30 tablet 03/20/19 05/01/19 Rx Metoprolol [Lopressor TAB] 12.5 mg PO BID #60 tablet 03/20/19 05/01/19 Rx oxyCODONE /ACETAMINOPHEN [Percocet 1 tab PO Q8H PRN #14 tablet 04/26/19 05/01/19 Rx 5/325 mg] cephALEXin [Keflex] 500 mg PO Q8HR #15 cap 05/03/19 Unknown Rx Naproxen 250 mg PO DAILY #7 tablet 09/29/19 Unknown Rx oxyCODONE /ACETAMINOPHEN [Percocet 1 tab PO Q6HR PRN #10 tablet 09/29/19 Unknown Rx 5/325] oxyCODONE /ACETAMINOPHEN [Percocet 1 tab PO Q6HR PRN #15 tablet 10/20/19 Unknown Rx 5/325] methOCARBAMOL [Robaxin TAB] 500 mg PO Q6HR #20 tablet 08/11/20 Unknown Rx methylPREDNISolone [Medrol 4MG 4 mg PO ONCE #1 tab.ds.pk 08/11/20 Unknown Rx DOSEPAK (21 tabs)] HYDROcodone/APAP 5-325 [[place] 1 each PO Q6HR PRN #14 tablet 01/08/21 Unknown Rx 5/325] methOCARBAMOL [Robaxin TAB] 500 mg PO Q6H PRN #14 tablet 01/08/21 Unknown Rx Allergies Allergy/AdvReac Type Severity Reaction Status Date / Time atorvastatin [From Lipitor] Allergy Unknown Verified 01/08/21 15:58 metoclopramide [From Reglan] Allergy Unknown Verified 01/08/21 15:58 promethazine [From Phenergan] Allergy Unknown Verified 01/08/21 15:58 ED Review of Systems ROS: Stated complaint: HIP/LEFTSHOULDER PAIN Other details as noted in HPI Comment: All other systems reviewed and negative Constitutional: denies: chills Respiratory: denies: cough, shortness of breath, SOB with exertion Cardiovascular: denies: chest pain Gastrointestinal: denies: abdominal pain, nausea, vomiting Musculoskeletal: back pain Neurological: denies: headache, weakness, numbness, paresthesias, confusion ED Past Medical Hx - Past Medical History Previous Medical History?: Yes Hx Hypertension: Yes Hx Diabetes: Yes Hx GERD: Yes Hx Arthritis: Yes Additional medical history: A. FIB - Surgical History Hx Open Heart Surgery: Yes (CABG) Hx Pacemaker: Yes (Left chest) Hx Internal Defibrillator: Yes (Left chest) - Social History Smoking Status: Never Smoker Substance Use Type: None - Medications Home Medications: Home Medications Medication Instructions Recorded Confirmed Last Taken Type Apixaban [Eliquis] 2.5 mg PO BID #30 tablet 03/20/19 09/28/19 05/01/19 Rx Metoprolol [Lopressor TAB] 12.5 mg PO BID #60 tablet 03/20/19 09/28/19 05/01/19 Rx oxyCODONE /ACETAMINOPHEN [Percocet 1 tab PO Q8H PRN #14 tablet 04/26/19 09/28/19 05/01/19 Rx 5/325 mg] cephALEXin [Keflex] 500 mg PO Q8HR #15 cap 05/03/19 09/28/19 Unknown Rx Naproxen 250 mg PO DAILY #7 tablet 09/29/19 Unknown Rx oxyCODONE /ACETAMINOPHEN [Percocet 1 tab PO Q6HR PRN #10 tablet 09/29/19 Unknown Rx 5/325] oxyCODONE /ACETAMINOPHEN [Percocet 1 tab PO Q6HR PRN #15 tablet 02/01/20 Unknown Rx 5/325] methOCARBAMOL [Robaxin TAB] 500 mg PO Q6HR #20 tablet 08/11/20 Unknown Rx methylPREDNISolone [Medrol 4MG 4 mg PO ONCE #1 tab.ds.pk 08/11/20 Unknown Rx DOSEPAK (21 tabs)] HYDROcodone/APAP 5-325 [[place] 1 each PO Q6HR PRN #14 tablet 01/08/21 Unknown Rx 5/325] methOCARBAMOL [Robaxin TAB] 500 mg PO Q6H PRN #14 tablet 01/08/21 Unknown Rx ED Physical Exam - General Limitations: Physical Limitation General appearance: alert, in no apparent distress - ENT ENT exam: Present: other (Dried blood in the mouth. No dental fracture that can be seen.) - Neck Neck exam: Present: normal inspection. Absent: tenderness - Respiratory Respiratory exam: Present: normal lung sounds bilaterally - Cardiovascular Cardiovascular Exam: Present: regular rate, normal rhythm, normal heart sounds - GI/Abdominal GI/Abdominal exam: Present: soft. Absent: distended, tenderness, guarding, rebound - Extremities Exam Extremities exam: Present: normal inspection - Back Exam Back exam: Present: normal inspection, full ROM. Absent: CVA tenderness (R), CVA tenderness (L) - Neurological Exam Neurological exam: Present: alert, oriented X3, CN II-XII intact - Psychiatric Psychiatric exam: Present: normal mood - Skin Skin exam: Present: warm ED Course Vital Signs 01/27/21 01/28/21 01/28/21 22:46 03:38 03:45 Temperature 99.4 F Pulse Rate 106 H 139 H Respiratory 18 25 H 24 Rate Blood Pressure 126/66 Blood Pressure 102/59 [Right] O2 Sat by Pulse 88 97 100 Oximetry 01/28/21 01/28/21 01/28/21 03:59 04:00 04:58 Temperature Pulse Rate 138 H 134 H Respiratory 22 22 22 Rate Blood Pressure 114/63 Blood Pressure [Right] O2 Sat by Pulse 99 Oximetry 01/28/21 01/28/21 01/28/21 05:00 05:03 05:13 Temperature Pulse Rate 134 H 135 H 135 H Respiratory 22 Rate Blood Pressure 130/69 135/82 Blood Pressure [Right] O2 Sat by Pulse 94 Oximetry 01/28/21 01/28/21 05:15 05:30 Temperature Pulse Rate 121 H 130 H Respiratory 22 22 Rate Blood Pressure 121/70 116/57 Blood Pressure [Right] O2 Sat by Pulse Oximetry ED Medical Decision Making - Lab Data Result diagrams: 01/27/21 23:16 01/27/21 23:16 - EKG Data -: EKG Interpreted by Me - EKG Data 01/28/21 04:15 Atrial fibrillation with RVR heart rate of 124 - Medical Decision Making Patient is 70 years old female with history of hypertension, diabetes, atrial fi brillation and arthritis. Patient is taking Eliquis. Patient lived by herself at home. Patient with history of frequent falls. Patient stated that she was in a chair and she leaned forward to grab a cup of water and she lost balance and fell face down she hit her face. Patient coming with dried blood in her mouth. She is complaining of lower back pain. Patient denied any loss of consciousness. Patient is laying on her side and refused to lay on her back. EKG showed atrial fibrillation with RVR and a heart rate of 124. Patient given a dose of Cardizem 10 mg IV. Labs reviewed and is unremarkable. CT brain showed mild subdural hematoma. CT cervical spine and CT lumbar spine is negative for acute finding. I discussed the patient with [facility] and patient has been accepted by Dr. Calloway. Critical Care Time: Yes Critical care time in (mins) excluding proc time.: 30 Critical care attestation.: If time is entered above; I have spent that time in minutes in the direct care of this critically ill patient, excluding procedure time. ED Disposition Clinical Impression: Atrial fibrillation with RVR, Frequent falls, Acute subdural hematoma, Comm inuted right humeral fracture Disposition: DC/TX-70 ANOTHER TYPE [facility] Is pt being admited?: No Condition: Stable Referrals: PRIMARY CARE, [Primary Care Provider] - 3-5 Days
--- NOTE | 2021-01-28 03:31 | XRay Report ---
CHEST 1 VIEW 01/28/2021 2:21 AM INDICATION / CLINICAL INFORMATION: fall. COMPARISON: 05/01/2019. FINDINGS: SUPPORT DEVICES: Pacemaker unchanged. HEART / MEDIASTINUM: Normal status post previous median sternotomy. LUNGS / PLEURA: Mild increased interstitial markings without localized infiltrate. No pneumothorax. ADDITIONAL FINDINGS: Comminuted fracture right humeral neck. IMPRESSION: Chronic appearing mild increased interstitial markings. Signer Name: Austin Pinon MD Signed: 01/28/2021 3:27 AM Workstation Name: [id number]
--- NOTE | 2021-01-28 03:32 | XRay Report ---
RIGHT CLAVICLE 2 VIEWS INDICATION / CLINICAL INFORMATION: fall, right clavicular pain, recent fracture COMPARISON: None available. FINDINGS: BONES / JOINT(S): Clavicle and AC joint intact. Comminuted humeral neck fracture with comminuted avul jony of the greater tuberosity. No significant arthritis. SOFT TISSUES: No significant abnormality. ADDITIONAL FINDINGS: None. Signer Name: Austin Pinon MD Signed: 01/28/2021 3:27 AM Workstation Name: [id number]
--- NOTE | 2021-01-28 03:33 | XRay Report ---
PELVIS ONE VIEW. INDICATION / CLINICAL INFORMATION: fall, low back pain, recent pelvic fx COMPARISON: 08/11/2020. FINDINGS: BONES / JOINT(S): No acute fracture or subluxation. Previous placement of compression screws with an intramedullary component at both hips. SOFT TISSUES: No significant abnormality. ADDITIONAL FINDINGS: None. Signer Name: Austin Pinon MD Signed: 01/28/2021 3:29 AM Workstation Name: [id number]
[2021-01-28] MEDS ORDERED: dilTIAZem 25 MG/5 ML INJ IV ONE (04:13)
--- NOTE | 2021-01-28 05:14 | Cat Scan Report ---
CT facial bones wo con INDICATION: Post-fall, bleeding from mouth and complains of back pain. TECHNIQUE: All CT scans at this location are performed using the following dose modulation technique: Automated exposure control. CONTRAST: None. COMPARISON: None available. FINDINGS: The sinuses are well aerated and clear. No bony injury. Negative for significant soft tissue injury. IMPRESSION: Unremarkable CT face without contrast. Signer Name: Austin Pinon MD Signed: 01/28/2021 5:10 AM Workstation Name: [id number]
--- NOTE | 2021-01-28 05:18 | Cat Scan Report ---
CT cervical spine wo con INDICATION: Post-fall, bleeding from mouth and complains of back pain. TECHNIQUE: All CT scans at this location are performed using the following dose modulation technique: Automated exposure control. CONTRAST: None. COMPARISON: None available. FINDINGS: Satisfactory alignment without vertebral compression. Fusion at C3-C5. Degenerative disc di sease at C5-C7 is mild/moderate. No bony injury. No significant soft tissue abnormality. IMPRESSION: 1. Negative for bony injury. 2. Mild/moderate DJD C5-C7. 3. Previous fusion C3-C5. Signer Name: Austin Pinon MD Signed: 01/28/2021 5:13 AM Workstation Name: [id number]
--- NOTE | 2021-01-28 05:22 | Cat Scan Report ---
CT lumbar spine wo con INDICATION: Post-fall, bleeding from mouth and complains of back pain. TECHNIQUE: All CT scans at this location are performed using the following dose modulation technique: Automated exposure control. CONTRAST: None. COMPARISON: None available. FINDINGS: Underlying osteopenia. Satisfactory alignment. Mild chronic appearing endplate compression at L1, L2 and L4. No acute appearing vertebral compression. Degenerative disc disease is localized at L5-S1 where changes are moderately advanced. Facet DJD is g reatest at this level where changes are moderate. Negative for soft tissue injury. A left renal cyst is noted. IMPRESSION: 1. Underlying osteopenia and multiple chronic appearing compressions. No acute appearing injury. 2. Degenerative changes more localized at L5-S1. Signer Name: Austin Pinon MD Signed: 01/28/2021 5:18 AM Workstation Name: [id number]
--- NOTE | 2021-01-28 05:25 | Cat Scan Report ---
CT head without contrast INDICATION : Post-fall, bleeding from mouth and complains of back pain. TECHNIQUE: Axial imaging performed from the skull apex through the skull base without the use of con trast. All CT scans at this location are performed using CT dose reduction for ALARA by means of aut omated exposure control. COMPARISON: CT brain 05/01/2019. FINDINGS: Parenchyma: Mild blood is seen along the falx anteriorly. No mass or stroke. Physiologic calcificatio n is seen at the basal ganglia. Ventricles: Ventricles are normal in size and appear symmetric. Soft tissues: Soft tissues including the orbits appear normal. Bones: No acute osseous abnormality. Sinuses: Sinuses and mastoid air cells are clear. IMPRESSION: Mild subdural blood along the falx anteriorly. No mass effect. CRITICAL RESULT: Time of Discovery (GOLD MINER/CDT): 4:18 AM Time of Communication (GOLD MINER/CDT): 4:20 AM Licensed Practitioner Receiving Report: Dr. Arango Read-Back Performed: Yes. Signer Name: Austin Pinon MD Signed: 01/28/2021 5:21 AM Workstation Name: [id number]
[2021-01-28 06:31] LABS: INR > 17.00 (0.87-1.13)
[2021-01-28 06:32] LABS: Partial Thromboplastin Time > 240.0 Sec. (24.2-36.6)
[2021-01-28 06:42] VITALS: BP 123/70
--- NOTE | 2021-01-29 11:58 | Electrocardiograph Report ---
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
== END 2021-01-28 06:54 | disposition other institution (70) ==
LOC: ED 22:35
DX: S06.5X1A Traumatic subdural hemorrhage with loss of consciousness of 30 minutes or less, initial encounter (principal); S42.351A Displaced comminuted fracture of shaft of humerus, right arm, initial encounter for closed fracture; I48.20 Chronic atrial fibrillation, unspecified; I10 Essential (primary) hypertension; E11.9 Type 2 diabetes mellitus without complications; M19.90 Unspecified osteoarthritis, unspecified site; J21.9 Acute bronchiolitis, unspecified; Z90.49 Acquired absence of other specified parts of digestive tract; Z79.899 Other long term (current) drug therapy; Z88.8 Allergy status to other drugs, medicaments and biological substances; W18.30XA Fall on same level, unspecified, initial encounter; Y93.89 Activity, other specified; Y92.89 Other specified places as the place of occurrence of the external cause; Y99.8 Other external cause status
CPT/HCPCS: 36415; 70450; 70486; 71045; 72125; 72131; 72170; 73000; 80053; 82550; 83735; 85025; 85610; 85730; 93005; 96361; 96374; 96375; 99291; J2270; J2405; J7030